=== PATIENT | male | born 1980 | race Caucasian/White ===

== ENCOUNTER 2022-12-31 12:39 | Outpatient (AMB) | payer OTHER, SELFPAY ==
[2022-12-31 12:43] VITALS: BP 136/72; PULSE 114; O2SAT 98; BMI 48.5
--- NOTE | 2022-12-31 12:43 | A.OFFPC_ITS ---
Vital Signs 12/31/22 12:43 Height 6 ft 2 in Weight 378 lb BMI 48.5 BP 136/72 Blood Pressure Location Lt brachial Position Sitting Pulse 114 H Pulse Source Pulse Oximeter Pulse Oximetry (%) 98 Oxygen Delivery Method Room Air Intake Visit Reasons: requesting phy NPV Allergies azithromycin Adverse Reaction (Intermediate, Verified 12/31/22 13:01) stomach pain Medication List - Last Reconciled 12/31/22 by SOFIYA Malik No Known Home Meds Tobacco use date assessed: 12/31/22 Dental Screening Dental Screen Date: 12/31/22 Did you have a dental visit in the last 12 months?: No Did you have a dental problem in the last 6 months where you did not have access to dental care?: No Was dental information given to patient?: No HPI HPI Comments History of Present Illness Details 42-year-old male new patient presents today to establish care.Past medical history significant for ADD, migraine, depression, gout, lumbar back pain and right hip pain. Patient reports snoring nightly and states he will occasionally wake himself from snoring. Patient requesting sleep study, sleep study ordered.Patient reports migraine headaches 1-2 times per month which have improved when he stopped working over nights.Patient reports taking ibuprofen as needed for migraine headaches which is sometimes affective. Patient requesting referral for new therapist and psychiatrist as his insurance has changed, referral entered. Patient also requesting to be started back on his bupropion and would like ADD medication. Patient made aware will refill bupropion a while establishes care with Psychiatry. Patient states his previously on bupropion 350 mg in the morning and 150 mg night, however he has not been on it in years. Will reinitiate bupropion 150 mg b.i.d. and follow-up in 1 month. Patient requesting physical therapy for ongoing right hip pain that occasionally shoots down his right leg, referral entered. Previous pcp Kae Díaz [facility]. [facility] Medical History (Updated 12/31/22 @ 13:28 by SOFIYA Malik) Low back pain Migraines Family History Mother No problems noted. Father Mental health disorder Sister No problems noted. Other Substance use disorder Social History (Updated 12/31/22 @ 13:05 by ROCIO Malik Housing: Apartment Alcohol intake: current Alcohol intake frequency: holidays/special occasions only Patient Tobacco Use Status: Never used Tobacco Tobacco use type: Cigarette e-Cigarette/Vaping Use: Never Used Second Hand Smoke Exposure: No Current occupational status: unemployed Cognitive needs: No Hearing needs: No Vision needs: Yes Questionnaire PHQ-9 Over the last 2 weeks, how often have you been bothered by any of the following problems? 1. Little interest or pleasure in doing things: nearly every day 2. Feeling down, depressed, or hopeless: nearly every day 3. Trouble falling or staying asleep, or sleeping too much: nearly every day 4. Feeling tired or having little energy: nearly every day 5. Poor appetite or overeating: not at all 6. Feeling bad about yourself - or that you are a failure or have let yourself or your family down: not at all 7. Trouble concentrating on things, such as reading the newspaper or watching television: more than half the days 8. Moving or speaking so slowly that other people could have noticed. Or the opposite - being so fidgety or restless that you have been moving around a lot more than usual: not at all 9. Thoughts that you would be better off or of hurting yourself in some way: not at all Total score: 14 Depression Screening Interpretation: Positive 72436 - PHQ-9 Billing: Yes Source: Developed by Drs. Murali Hinkle, Yarely Estrada, Jaswant Sotelo and colleagues, with an educational erika from [employer]. Thrive Questionnaire Date Thrive assessed: 12/31/22 I am a: Patient What is your living situation today?: I have a steady place to live Within the past 12 months, did the food you bought not last and you didn't have the money to get more?: Never true Within the past 12 months, did you worry whether your food would run out before you got money to buy more?: Never true Do you have trouble paying for medicines?: No Do you have trouble getting transportation to medical appointments?: No Do you have trouble paying your heating and electricity bill?: No Do you have trouble taking care of your child, family member or friend?: No Do you have trouble with day-to-day activities such as bathing, preparing meals, shopping, managing finances, etc.?: No Are you currently unemployed and looking for a job?: No Are you interested in more education?: No Currently or been in a relationship where the following occur: no concerns reported AUDIT C Alcohol Use Questionnaire (AUDIT-C) 1. How often do you have a drink containing alcohol?: Monthly or less 2. How many drinks containing alcohol do you have on a typical day when you are drinking?: 1 or 2 3. How often do you have six or more drinks on one occasion?: Never Total Score: 1 LUIS-7 AMB Questionnaire LUIS-7 Date LUIS - 7 assessed: 12/31/22 Feeling nervous, anxious, or on edge: 0 = Not at all Not being able to stop or control worryin = Not at all Worrying too much about different things: 0 = Not at all Trouble relaxin = Not at all Being so restless that it is hard to sit still: 0 = Not at all Becoming easily annoyed or irritable: 0 = Not at all Feeling afraid as if something awful might happen: 0 = Not at all Total LUIS-7 score (0-4 normal; 5-9 mild; 10-14 moderate; 15-21 severe): 0 Source: Developed by Drs. Murali Hinkle, Yarely Estrada, Jaswant Sotelo and colleagues, with an educational erika from [employer]. LUIS-7 Assessment Billing LUIS-7 Assessment Tool: LUIS-7 Assessment 42838 Review of Systems Const Denies chills, Denies fatigue, Denies fever(s) and Denies poor appetite Eyes Denies no additional complaints ENT Reports Normal hearing present Card Denies chest pain, Denies syncope, Denies rapid heart rate and Denies dyspnea Resp Denies cough and Denies dyspnea GI Denies change in stool character, Denies constipation, Denies diarrhea, Denies nausea and Denies vomiting Denies dysuria, Denies urinary frequency and Denies urinary urgency Neuro Reports Normal hearing present, Denies confusion and Denies syncope Psych Denies confusion Endo Denies fatigue Physical exam (Primary Care) Vital Signs: Last Vital Signs Pulse 114 H 12/31/22 12:43 BP 136/72 12/31/22 12:43 Pulse Ox 98 12/31/22 12:43 Oxygen Delivery Method Room Air 12/31/22 12:43 BMI result Body Mass Index 48.5 Tobacco/Smoking Status: Tobacco use Status Tobacco use date assessed 12/31/22 12/31/22 12:50 Patient Tobacco Use Status Never used Tobacco 12/31/22 13:05 Tobacco use type Cigarette 12/31/22 13:05 e-Cigarette/Vaping Use Never Used 12/31/22 13:05 PHQ-9: PHQ-9 Score PHQ-9: Total score 14 12/31/22 13:06 Depression Screening Interpretation: Positive Thrive Assessment: Date of Thrive Assessment Date Thrive assessed 12/31/22 12/31/22 12:50 Currently or been in a relationship where the following occur: no concerns reported Const General: No confusion Orientation/consciousness: No confusion HENMT Head: Yes normocephalic and Yes atraumatic Eyes Conjunctivae: conjunctivae normal Chest Chest palpation & inspection: normal inspection of the chest Resp Effort & Inspection: normal respiratory effort Auscultation: clear to auscultation bilaterally, no crackles, no rhonchi and no wheezes Cardio Rate: regular rate Rhythm: regular rhythm Heart sounds: S1 normal heart sound present and S2 normal heart sound present GI Inspection: Yes normal to inspection Neuro General: No confusion Cranial nerves: Yes Normal hearing present Extrem General: No edema Assessment and Plan Assessment & Plan (1) Snoring: Code(s): R06.83 - Snoring Plan: Home sleep study ordered to further evaluate for CARL. (2) Right hip pain: Code(s): M25.551 - Pain in right hip Plan: Referral entered to therapy. Patient advise can take [id number] ibuprofen as needed for pain. Patient advised to please take with food to prevent GI upset. (3) Routine screening for STI (sexually transmitted infection): Code(s): Z11.3 - Encounter for screening for infections with a predominantly sexual mode of transmission Plan: Patient requesting routine STI screening, orders entered. (4) Depression: Code(s): F32.A - Depression, unspecified Plan: Will start her patient on bupropion 150 b.i.d. Patient denies SI/HI Referral entered to Psychiatry therapist. Follow-up in 1 month. Plan Follow up in 1 month Orders: Orders Comprehensive [place]. Panel Fast 12/31/22 Z13.1 - Encounter for screening for diabetes mellitus Lipid Panel 12/31/22 Z13.220 - Encounter for screening for lipoid disorders TSH reflex Free T4 12/31/22 Z13.29 - Encounter for screening for other suspected endocrine disorder Complete Blood Count Auto Diff 12/31/22 Z13.0 - Encounter for screening for diseases of the blood and blood-forming organs and certain disorders involving the immune mechanism Lyme IgG/IgM w/reflex to WB 12/31/22 R53.83 - Other fatigue RT home sleep study 12/31/22 R06.83 - Snoring PT Evaluation and Treatment 12/31/22 M25.551 - Pain in right hip Hepatitis B,C Profile 12/31/22 Z11.3 - Encounter for screening for infections with a predominantly sexual mode of transmission HIV Ab/Ag 12/31/22 Z11.3 - Encounter for screening for infections with a predominantly sexual mode of transmission Syphilis Screen 12/31/22 Z11.3 - Encounter for screening for infections with a predominantly sexual mode of transmission CT NG by PCR 12/31/22 Z11.8 - Encounter for screening for other infectious and parasitic diseases Referrals Counseling Referral F32.A - Depression, unspecified Psychiatry Referral F32.A - Depression, unspecified, F98.8 - Other specified behavioral and emotional disorders with onset usually occurring in childhood and adolescence Medications: New bupropion HCl 150 mg PO BID 60 tabs 0RF Coding Level of Care Code New Pt Level 4 (38060) Diagnoses Snoring R06.83 Right hip pain M25.551 Routine screening for STI (sexually transmitted infection) Z11.3 Depression F32.A Additional Codes LUIS-7 Assessment Billing - LUIS-7 Assessment Tool: LUIS-7 Assessment 79730 ([id number])
== END 2022-12-31 13:31 | disposition home or self-care (01) ==
PROVIDERS: PCP Nurse Practitioner Family; Visit Provider Nurse Practitioner Family
DX: R06.83 Snoring (principal); M25.551 Pain in right hip; Z11.3 Encounter for screening for infections with a predominantly sexual mode of transmission; F32.A Depression, unspecified
CPT/HCPCS: 99204

== ENCOUNTER 2023-01-24 09:57 | Outpatient (REF) | payer OTHER, SELFPAY ==
[2023-01-24 10:22] LABS: MANUAL DIFF FLAG NO
[2023-01-24 10:40] LABS: Basophils Absolute Auto 0.1 X10*3/uL (0.0-0.2); Eosinophils Percent Auto 0.1 % (0-4); Hematocrit 47.5 % (42.0-52.0); Hemoglobin 16.2 g/dl (14.0-18.0); Imm Gran Abs Auto 0.03 X10*3/uL (0.00-0.03); Imm Gran Pct Auto 0.4 % (0.0-0.4); Lymphocytes Absolute Auto 2.8 X10*3/uL (1.2-4.9); Lymphocytes Percent Auto 35.3 % (20-40); Mean Corpuscular HGB Conc 34.1 g/dl (31.0-36.0); Mean Corpuscular Hemoglobin 28.7 pg (27.0-33.0); Mean Corpuscular Volume 84.2 fL (80.0-98.0); Mean Platelet Volume 10.4 fL (9.4-12.4); Monocytes Absolute Auto 0.5 X10*3/uL (0.1-1.2); Monocytes Percent Auto 6.5 % (2-11); Neutrophils Absolute Auto 4.5 x10*3/uL (2.0-8.3); Neutrophils Percent Auto 56.7 % (45-73); Platelet Count 323 X10*3/uL (160-400); Red Blood Count 5.64 X10*6/uL (4.60-5.80); Red Cell Distribution Width 13.2 % (11.0-16.0)
[2023-01-24 11:14] LABS: Alanine Aminotransferase 26 U/L (0-40); Albumin Level 4.2 g/dL (3.5-5.0); Alkaline Phosphatase 88 U/L (39-117); Anion Gap 12 (12-20); Aspartate Amino Transferase 26 U/L (5-37); Bilirubin Total 0.7 mg/dL (0.0-1.0); Blood Urea Nitrogen 7 mg/dL (9-16); Calcium 9.1 mg/dL (8.4-10.2); Carbon Dioxide 23 mmol/L (22-29); Chloride 108 mmol/L (96-108); Cholesterol 172 mg/dL (<200); Estimated Glomerular Filt Rate > 60; Glucose Fasting 95 mg/dL (60-99); HDL Cholesterol 36 mg/dL (>40); LDL Cholesterol Calculated 103 mg/dL (<100); Potassium 3.6 mmol/L (3.3-5.1); Sodium 139 mmol/L (135-145); Total Protein 7.9 g/dL (6.5-8.0); Triglycerides 165 mg/dL (<150)
[2023-01-24 11:28] LABS: TSH reflex Free T4 2.87 uIU/mL (0.32-4.0)
[2023-01-25 04:47] LABS: Syphilis Screen Nonreactive (Nonreactive)
[2023-01-25 05:15] LABS: HBS Num1 428.72 mIU/mL (0-7.99); HBc Num1 0.12 S/CO (0.00-0.79); HBsAGNum1 0.33 S/CO (0.00-0.99); HIV AB/AG Nonreactive (Nonreactive); HIV Num 1 0.06 S/CO (0.00-0.99); Hepatitis B Core Antibody Nonreactive (Nonreactive); Hepatitis B Surface Antigen Negative (Negative); ~Hepatitis B Surface Antibody REACTIVE (Nonreactive); ~Hepatitis C Antibody Nonreactive (Nonreactive)
[2023-01-26 06:38] LABS: Lyme Abs Screen <0.90 index
== END 2023-01-24 09:58 | disposition home or self-care (01) ==
LOC: HO.LAB 09:57
PROVIDERS: PCP Nurse Practitioner Family; Visit Provider Nurse Practitioner Family
DX: R53.83 Other fatigue (principal); Z13.1 Encounter for screening for diabetes mellitus; Z11.3 Encounter for screening for infections with a predominantly sexual mode of transmission; Z13.220 Encounter for screening for lipoid disorders; Z13.29 Encounter for screening for other suspected endocrine disorder; Z13.0 Encounter for screening for diseases of the blood and blood-forming organs and certain disorders involving the immune mechanism
CPT/HCPCS: 36415; 80053; 80061; 84443; 85025; 86617; 86618; 86704; 86706; 86780; 86803; 87340; 87389

== ENCOUNTER 2023-01-31 14:21 | Outpatient (AMB) | payer OTHER, SELFPAY ==
[2023-01-31 14:24] VITALS: BP 130/84; PULSE 107; O2SAT 98; BMI 48.1
--- NOTE | 2023-01-31 14:24 | A.OFFPC_ITS ---
Vital Signs 01/31/23 14:24 Height 6 ft 2 in Weight 375 lb BMI 48.1 BP 130/84 Blood Pressure Location Lt brachial Position Sitting Pulse 107 H Pulse Source Pulse Oximeter Pulse Oximetry (%) 98 Oxygen Delivery Method Room Air Intake Visit Reasons: PE, Deppression Shotblast Equipment Operator: Not Required per policy Accompanied by: Self / Same As Patient Allergies azithromycin Adverse Reaction (Intermediate, Verified 01/31/23 14:34) stomach pain Medication List - Last Reconciled 01/31/23 by SOFIYA Malik bupropion HCl 150 mg PO BID Tobacco use date assessed: 12/31/22 Dental Screening Dental Screen Date: 01/31/23 Did you have a dental visit in the last 12 months?: No Did you have a dental problem in the last 6 months where you did not have access to dental care?: No Was dental information given to patient?: Patient has dentist HPI HPI Comments History of Present Illness Details 42-year-old male new patient presents to [facility] to establish care.Past medical history significant for ADD, migraine, depression, gout, lumbar back pain and right hip pain. Patient was re-initiated on bupropion 150 mg b.i.d. and referred to Psychiatry to establish care. Patient reports overall improved mood on bupropion. Patient states has upcoming sleep study and will be starting physical therapy soon for his right hip pain. Denies any acute concerns. Denies chest pain, palpitations, shortness of breath syncope. Eye Exam:November 2022. [facility] Medical History Low back pain Migraines Family History Mother No problems noted. Father Mental health disorder Sister No problems noted. Other Substance use disorder Social History Housing: Apartment Alcohol intake: current Alcohol intake frequency: holidays/special occasions only Patient Tobacco Use Status: Never used Tobacco Tobacco use type: Cigarette e-Cigarette/Vaping Use: Never Used Second Hand Smoke Exposure: No Current occupational status: unemployed Cognitive needs: No Hearing needs: No Vision needs: Yes Questionnaire PHQ-9 Over the last 2 weeks, how often have you been bothered by any of the following problems? 1. Little interest or pleasure in doing things: nearly every day 2. Feeling down, depressed, or hopeless: nearly every day 3. Trouble falling or staying asleep, or sleeping too much: nearly every day 4. Feeling tired or having little energy: nearly every day 5. Poor appetite or overeating: not at all 6. Feeling bad about yourself - or that you are a failure or have let yourself or your family down: not at all 7. Trouble concentrating on things, such as reading the newspaper or watching television: more than half the days 8. Moving or speaking so slowly that other people could have noticed. Or the opposite - being so fidgety or restless that you have been moving around a lot more than usual: not at all 9. Thoughts that you would be better off or of hurting yourself in some way: not at all Total score: 14 Depression Screening Interpretation: Positive 77374 - PHQ-9 Billing: Yes Source: Developed by Drs. Murali Hinkle, Jaswant Pennington and colleagues, with an educational erika from [employer]. Thrive Questionnaire Date Thrive assessed: 12/31/22 AUDIT C Alcohol Use Questionnaire (AUDIT-C) 1. How often do you have a drink containing alcohol?: Monthly or less 2. How many drinks containing alcohol do you have on a typical day when you are drinking?: 1 or 2 3. How often do you have six or more drinks on one occasion?: Never Total Score: 1 LUIS-7 AMB Questionnaire LUIS-7 Date LUIS - 7 assessed: 12/31/22 Source: Developed by Drs. Murali Hinkle, Jaswant Pennington and colleagues, with an educational erika from [employer]. Review of Systems Const Denies chills, Denies fatigue, Denies fever(s) and Denies poor appetite Eyes Denies no additional complaints ENT Reports Normal hearing present Card Denies chest pain, Denies syncope, Denies rapid heart rate and Denies dyspnea Resp Denies cough and Denies dyspnea GI Denies change in stool character, Denies constipation, Denies diarrhea, Denies nausea and Denies vomiting Denies dysuria, Denies urinary frequency and Denies urinary urgency Neuro Reports Normal hearing present, Denies confusion and Denies syncope Psych Denies confusion Endo Denies fatigue Physical exam (Primary Care) Vital Signs: Last Vital Signs Pulse 107 H 01/31/23 14:24 BP 130/84 01/31/23 14:24 Pulse Ox 98 01/31/23 14:24 Oxygen Delivery Method Room Air 01/31/23 14:24 BMI result Body Mass Index 48.1 Tobacco/Smoking Status: Tobacco use Status Tobacco use date assessed 12/31/22 01/31/23 14:29 Patient Tobacco Use Status Never used Tobacco 01/31/23 14:29 Tobacco use type Cigarette 01/31/23 14:29 e-Cigarette/Vaping Use Never Used 01/31/23 14:29 PHQ-9: PHQ-9 Score PHQ-9: Total score 14 01/31/23 14:29 Depression Screening Interpretation: Positive Thrive Assessment: Date of Thrive Assessment Date Thrive assessed 12/31/22 01/31/23 14:29 Const General: No confusion Orientation/consciousness: No confusion HENMT Head: Yes normocephalic and Yes atraumatic Ears: external ears normal and TM's normal bilaterally General nose exam: Normal external nose present and Normal nasal mucous membranes and turbinates present Face and sinus: Yes normal facial exam and Yes sinuses nontender Mouth: moist mucous membranes Throat: Yes tonsils normal Eyes Conjunctivae: conjunctivae normal Sclerae: sclerae normal Pupils: Equal, round and reactive pupils present and Pupils normal by confrontation EOM: EOMs intact bilaterally Direct Ophthalmoscopy: normal light reflex Neck Neck: Yes no lymphadenopathy and Yes supple Thyroid: Thyroid normal Chest Chest palpation & inspection: normal inspection of the chest Resp Effort & Inspection: normal respiratory effort Auscultation: clear to auscultation bilaterally, no crackles, no rhonchi and no wheezes Cardio Rate: regular rate Rhythm: regular rhythm Peripheral pulses: radial pulses present and dorsalis pedis present GI Inspection: Yes normal to inspection Palpation (GI): Soft to palpation, nontender and No hepatosplenomegaly present Auscultation: normoactive bowel sounds Back/Spine/Pelvis Other: Patient has multiple red raised nevi to back Skin General skin exam: no rashes or lesions noted Neuro General: No confusion Cranial nerves: Yes Equal, round and reactive pupils present and Yes Normal hearing present Cognition (Neuro): normal cognition Gait exam (Neuro): Normal gait present Motor exam (neuro): 5/5 motor strength present throughout Deep tendon reflexes (DTR's): Right brachioradialis reflex intensity grade: 2+, Left brachioradialis reflex intensity grade: 2+, Right patellar reflex intensity grade: 2+ and Left patellar reflex intensity grade: 2+ Extrem General: No edema Assessment and Plan Assessment & Plan (1) Depression: Code(s): F32.A - Depression, unspecified Plan: Continue on bupropion 150 mg b.i.d., establish care with psychiatry. (2) Apnea: Code(s): R06.81 - Apnea, not elsewhere classified Plan: Patient has an appointment for upcoming sleep study to further evaluate periods of apnea. (3) Physical exam, annual: Code(s): Z00.00 - Encounter for general adult medical examination without abnormal findings Plan: Follow-up in 1 year. (4) Atypical nevi: Code(s): D22.9 - Melanocytic nevi, unspecified Plan: Patient has multiple red raised nevi scattered on back, patient reports seen dermatology in the past and he was told they were not concerning but recommended to have someone check them. Patient denies any change, offered referral to Dermatology however declines at this time. Medications: Refilled bupropion HCl 150 mg PO BID 60 tabs 3RF Coding Level of Care Code Est Pt Prev Care 40-64y(40477) Diagnoses Depression F32.A Apnea R06.81 Physical exam, annual Z00.00 Atypical nevi D22.9
== END 2023-01-31 14:48 | disposition home or self-care (01) ==
PROVIDERS: PCP Nurse Practitioner Family; Visit Provider Nurse Practitioner Family
DX: F32.A Depression, unspecified (principal); R06.81 Apnea, not elsewhere classified; Z00.00 Encounter for general adult medical examination without abnormal findings; D22.9 Melanocytic nevi, unspecified
CPT/HCPCS: 99396

== ENCOUNTER → 2023-03-01 14:04 | Outpatient (REF) | payer OTHER, SELFPAY | LOC: HO.SL 14:04 | PROVIDERS: PCP Nurse Practitioner Family; Visit Provider Nurse Practitioner Family | DX: R06.83 Snoring (principal); R06.81 Apnea, not elsewhere classified | CPT/HCPCS: 95806 ==

== ENCOUNTER → 2023-03-01 14:16 | Outpatient (BNV) | payer OTHER, SELFPAY | PROVIDERS: PCP Nurse Practitioner Family; Visit Provider Internal Medicine | DX: G47.33 Obstructive sleep apnea (adult) (pediatric) (principal) | CPT/HCPCS: 95806 ==

== ENCOUNTER 2023-03-11 10:00 | Outpatient (RCR) | payer OTHER, SELFPAY ==
--- NOTE | 2023-02-07 15:59 | MHC.PT.EP ---
[facility] [place] Office [place] Office [place] Office [address] [phone] F: [phone] F: [phone] F: [phone] F: [phone] Physical Therapy Plan of Care Date of Evaluation: 02/07/23 Date of Surgery: NA Diagnosis: R hip pain Assessment: Neeraj is a 42 year old male who is referred to PT for R hip pain . He reports of having sudden onset of pain in R hip about 4 months back. He denies any trauma or falls. On PT examination he presented with 4/10 pain in R hip with sit to stand, bending, twisting and lifting, mild TTP in B SIJ- R>L, decreased trunk ROM, decreased muscle strength, altered posture and gait. He lives with family members and is independent with ADLS but modifies them and during flare ups he needs help for IADLS. 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 He would benefit from skilled PT to address the aforementioned impairments and improve tolerance to functional activities. Frequency and Duration: The patient will be seen 2/week for 5 weeks Short Term Goals: 1. Pt will have 50% decrease in pain which will enable him to tolerate sitting for an hour without pain in 2 weeks. 2. Pt will be able to move trunk through all plane of motion without pain which will enable him to dress his lower body without pain in 3 weeks. Retirement Goals: 1. Pt will demonstrate an increase in muscle strength by 1 grade which will enable to tolerate bending, twisting and lifting without pain in 5 weeks. 2. Pt will be independent with HEP for symptom management and maintenance following d/c in 5 weeks. Treatment Plan: Modalities to reduce pain, spasms and effusion. Manual therapy to restore motion and function. Therapeutic exercise to improve strength and flexibility. Neuromuscular re-education for posture and balance. Therapeutic activities to return to functional activities of daily living. Electronically signed by: Concha Schaefer PT DPT Please sign and return to therapist. Thank you for your referral.
--- NOTE | 2023-03-11 10:51 | MHC.PT.DC ---
[facility] [place] Office [place] Office [place] Office [address] [phone] F: [phone] F: [phone] F: [phone] F: [phone] Physical Therapy Discharge Report Diagnosis: R hip pain Date of Surgery: NA Date of Evaluation: 02/07/23 Date of Discharge: 03/11/23 Treatments to Date: 8 Cancellations to Date: 0 No Shows to Date: 0 Discharge Status: Achieved Goals Improved Function Independent with HEP Discharge Summary: Neeraj has completed 8 PT visits and has made significant improvements. He is independent with HEP as well. He is therefore being d/c from PT. Neeraj was in agreement with the plan. I reviewed all HEP with him today. Electronically signed by: Concha Schaeefr, PT DPT Please sign and return to therapist. Thank you for your referral.
== END 2023-03-11 10:52 | disposition home or self-care (01) ==
LOC: HO.PT 10:00
PROVIDERS: PCP Nurse Practitioner Family; Visit Provider Nurse Practitioner Family
DX: M25.551 Pain in right hip (principal)
CPT/HCPCS: 97110; 97112; 97161; 97530

== ENCOUNTER 2023-04-27 14:34 | Outpatient (AMB) | payer OTHER, SELFPAY ==
[2023-04-27 14:40] VITALS: BP 130/86; PULSE 105; O2SAT 96; BMI 47.7
--- NOTE | 2023-04-27 14:40 | MHC.OFFVIS ---
Intake Vital Signs 04/27/23 14:40 Height 6 ft 2 in Weight 371 lb 7.662 oz BMI 47.7 BP 130/86 Blood Pressure Location Lt brachial Position Sitting Pulse 105 H Pulse Source Pulse Oximeter Pulse Oximetry (%) 96 Oxygen Delivery Method Room Air Intake Visit Reasons: Obstructive sleep apnea Intake Note: pt is here as a new patient for follow up of sleep study. snoring and tired throughtout the day, sleep issues started a few years ago. Econometrician Required: No Allergies azithromycin Adverse Reaction (Intermediate, Verified 04/27/23 15:09) stomach pain Medication List - Last Reconciled 04/27/23 by Eusebio Rashid MD bupropion HCl 150 mg PO BID Do you need a note to return to daycare/school/sports/work: No HPI Obstructive sleep apnea HPI Details THIS 42 YEARS OLD GENTLEMAN IS BEING SEEN FOR THE 1ST TIME IN RELATION TO HIS SLEEP APNEA. HE HAS BEEN GROSSLY OVERWEIGHT THROUGHOUT HIS ADULT LIFE. HAS PUT ON MORE WEIGHT IN THE LAST FEW YEARS BECAUSE HE IS RELATIVELY SEDENTARY. HE HAS HAD THE MODERATE AMOUNT OF SNORING ALL ALONG. BUT DURING THE PAST FEW YEARS HE HAS MORE SNORING, WITH FREQUENT AWAKENING DURING THE NIGHT, AND DAYTIME FATIGUE/SLEEPINESS. FINALLY HE HAS HAD HOME-BASED SLEEP STUDY, WHICH IS GROSSLY ABNORMAL. HE IS A CASE OF ATTENTION DEFICIT DISORDER, DEPRESSION , AND IS BEING TREATED WITH BUPRPION 150 MG B.I.D. HE LIVES WITH A PARTNER. HE DENIES SMOKING OR DRINKING ALCOHOL. HE HAS CHRONIC RIGHT HIP PAIN, WHICH PREVENTS HIM FROM DOING ANY PHYSICAL EXERCISES. [facility], [facility] Medical History (Updated 04/27/23 @ 15:25 by Eusebio Rashid MD) Morbid obesity Obstructive sleep apnea hypopnea, severe Low back pain Migraines Family History Mother No problems noted. Father Mental health disorder Sister No problems noted. Other Substance use disorder Social History Housing: Apartment Alcohol intake: current Alcohol intake frequency: holidays/special occasions only Patient Tobacco Use Status: Never used Tobacco Tobacco use type: Cigarette e-Cigarette/Vaping Use: Never Used Second Hand Smoke Exposure: No Current occupational status: unemployed Cognitive needs: No Hearing needs: No Vision needs: Yes Review of Systems Const All systems reviewed & are unremarkable except as noted in HPI and below Eyes Reports no additional complaints ENT Reports no additional complaints Card Denies chest pain, Denies syncope, Denies irregular heart rhythm, Denies leg edema and Denies dyspnea Resp Denies cough, Denies dyspnea and Denies wheezing GI Reports no additional complaints Reports no additional complaints Musc Reports back pain Skin/Breast Reports system reviewed and no additional complaints, except as documented Neuro Reports no additional complaints and Denies syncope Psych Reports no additional complaints and Reports depression (CONTROLLED) Endo Reports no additional complaints Wes/Lymph Reports no additional complaints Aller/Immun Denies wheezing Physical Exam Vital Signs: Last Vital Signs Pulse 105 H 04/27/23 14:40 BP 130/86 04/27/23 14:40 Pulse Ox 96 04/27/23 14:40 Oxygen Delivery Method Room Air 04/27/23 14:40 BMI result Body Mass Index 47.7 Const General: comfortable, no acute distress, alert and awake Orientation/consciousness: patient oriented x3 HEENT Head: Yes normal to inspection General nose exam: No nasal polyps present and No nasal discharge present Face and sinus: Yes sinuses nontender Mouth: oropharynx abnormals (OROPHARYNX IS MODERATELY CROWDED, MALLAMPATI CLASS 3) Throat: Yes posterior oropharynx normal Eyes General: appearance normal, both eyes and all related structures Neck Neck: Yes normal visual inspection, Yes no lymphadenopathy, Yes trachea midline, Yes no JVD and Yes other (NECK CIRCUMFERENCE IS 20 IN) Thyroid: Thyroid normal Chest Chest palpation & inspection: normal inspection of the chest, normal palpation of entire chest wall and no tenderness Resp Effort & Inspection: normal respiratory effort Auscultation: clear to auscultation bilaterally, no crackles and no wheezes Cardio Palpation: normal PMI Rate: regular rate Rhythm: regular rhythm Heart sounds: no gallops and no murmurs Peripheral pulses: Peripheral pulses 2+ throughout GI Palpation (GI): Soft to palpation, nontender, No hepatosplenomegaly present and no masses Auscultation: normal bowel sounds Back/Spine/Pelvis Thoracic/Lumbar Spine: thoracic and lumbar spine normal to inspection Skin General skin exam: no rashes or lesions noted Neuro General: patient oriented x3 and no focal motor deficits Cranial nerves: Yes CN's II-XII intact bilaterally Extrem General: Yes normal to inspection, Yes no clubbing, cyanosis or edema and Yes no calf tenderness Psych Appearance: grossly normal and well kempt Speech and movement: Normal speech and movement present Results Reviewed Results Reviewed: HOME-BASED SLEEP STUDY ON 03/01/2023 SHOWS THE FOLLOWING. TOTAL SLEEP TIME AHI 25, SUPINE POSITION AHI 63. LATERAL POSITION AHI 12.4 SNORING FOR 11% OF THE SLEEP TIME. NO NOCTURNAL HYPOXEMIA Assessment & Plan Assessment & Plan (1) Morbid obesity: Comment: THIS GENTLEMAN IS MORBIDLY OBESE. Code(s): E66.01 - Morbid (severe) obesity due to excess calories Plan: WE HAD A GOOD DISCUSSION I TALKED TO HIM ABOUT OBESITY, HOW. IT RELATES TO SLEEP APNEA TALKED ABOUT. WEIGHT REDUCTION PROGRAM HE IS PROBABLY GOING TO DO ON HIS OWN. TALKED ABOUT REDUCING THE CALORIES INTAKE AND ALSO INCREASING HIS DAILY EXERCISE. (2) Obstructive sleep apnea hypopnea, severe: Comment: HE HAS MODERATELY SEVERE DEGREE OF OBSTRUCTIVE SLEEP APNEA. HE IS A GOOD CANDIDATE FOR USING CPAP. HE IS AGREEABLE TO GO ON CPAP AT NIGHT. HE WAS EDUCATED ABOUT THE CPAP THERAPY, SHOWN HIM VARIOUS MASKS. Code(s): G47.33 - Obstructive sleep apnea (adult) (pediatric) Plan: ORDERED CPAP THERAPY WITH AUTO PAP MODE AND PRESSURE SETTING OF 6-20 CM USING FULLFACE MASK. HE WILL COME IN 6-8 WEEKS FOR FOLLOW-UP FOR COMPLIANCE AND BENEFITS. Coding Level of Care Code New Pt Level 3 (67873) Diagnoses Morbid obesity E66.01 Obstructive sleep apnea hypopnea, severe G47.33
== END 2023-04-27 15:07 | disposition home or self-care (01) ==
PROVIDERS: PCP Nurse Practitioner Family; Referring Provider Nurse Practitioner Family; Visit Provider Internal Medicine
DX: G47.33 Obstructive sleep apnea (adult) (pediatric) (principal); E66.01 Morbid (severe) obesity due to excess calories
CPT/HCPCS: 99213

== ENCOUNTER → 2023-04-27 14:34 | Outpatient (BNVA) | payer OTHER, SELFPAY | PROVIDERS: PCP Nurse Practitioner Family; Referring Provider Nurse Practitioner Family; Visit Provider Internal Medicine | DX: G47.33 Obstructive sleep apnea (adult) (pediatric) (principal); E66.01 Morbid (severe) obesity due to excess calories; Z68.42 Body mass index [BMI] 45.0-49.9, adult | CPT/HCPCS: 99212 ==

== ENCOUNTER 2023-07-04 15:37 | Outpatient (AMB) | payer OTHER, SELFPAY ==
[2023-07-04 15:42] VITALS: BP 110/82; PULSE 96; O2SAT 102; BMI 48.1
--- NOTE | 2023-07-04 15:42 | MHC.OFFVIS ---
Intake Vital Signs 07/04/23 15:42 Height 6 ft 2 in Weight 374 lb 12.573 oz BMI 48.1 BP 110/82 Blood Pressure Location Lt brachial Position Sitting Pulse 96 Pulse Source Pulse Oximeter Pulse Oximetry (%) 102 H Oxygen Delivery Method Room Air Intake Visit Reasons: Obstructive sleep apnea Intake Note: pt is here for CARL follow up and the only issue is he takes it off in his sleep. Medical Laboratory Technologist Required: No Allergies azithromycin Adverse Reaction (Intermediate, Verified 07/04/23 16:08) stomach pain Medication List - Last Reconciled 07/04/23 by Eusebio Rashid MD bupropion HCl 150 mg PO BID Do you need a note to return to daycare/school/sports/work: No HPI Obstructive sleep apnea HPI Details THIS 42 YEARS OLD GENTLEMAN WITH MORBID OBESITY AND OBSTRUCTIVE SLEEP APNEA IS HERE FOR FOLLOW-UP AFTER STARTING ON THE CPAP THERAPY. HE IS A CONFIRMED CASE OF SEVERE OBSTRUCTIVE SLEEP APNEA AND WAS STARTED ON THE CPAP THERAPY WITH AUTO PAP MODE. HE HAS BEEN USING EVERY NIGHT, AND CLAIMS THAT HIS SLEEP IS DEFINITELY MUCH BETTER. HE THINKS THAT HE POLES OF THE MASK DURING THE NIGHT . BUT HIS COMPLIANCE REPORT INDICATES THAT HE IS USING IT AT LEAST FOR 5 HOURS EVERY NIGHT. THE MASK. IS COMFORTABLE HE HAS NO ISSUE WITH THE HE WAKES UP LITTLE BIT MORE REFRESHED. THAN BEFORE [facility] Medical History Morbid obesity Obstructive sleep apnea hypopnea, severe Low back pain Migraines Family History Mother No problems noted. Father Mental health disorder Sister No problems noted. Other Substance use disorder Social History Housing: Apartment Alcohol intake: current Alcohol intake frequency: holidays/special occasions only Patient Tobacco Use Status: Never used Tobacco Tobacco use type: Cigarette e-Cigarette/Vaping Use: Never Used Second Hand Smoke Exposure: No Current occupational status: unemployed Cognitive needs: No Hearing needs: No Vision needs: Yes Review of Systems Const All systems reviewed & are unremarkable except as noted in HPI and below Eyes Reports no additional complaints ENT Reports no additional complaints Card Denies chest pain, Denies syncope, Denies irregular heart rhythm, Denies leg edema and Denies dyspnea Resp Denies cough, Denies dyspnea and Denies wheezing GI Reports no additional complaints Reports no additional complaints Musc Reports back pain Skin/Breast Reports system reviewed and no additional complaints, except as documented Neuro Reports no additional complaints and Denies syncope Psych Reports no additional complaints and Reports depression (CONTROLLED) Endo Reports no additional complaints Wes/Lymph Reports no additional complaints Aller/Immun Denies wheezing Physical Exam Vital Signs: Last Vital Signs Pulse 96 07/04/23 15:42 BP 110/82 07/04/23 15:42 Pulse Ox 102 H 07/04/23 15:42 Oxygen Delivery Method Room Air 07/04/23 15:42 BMI result Body Mass Index 48.1 Const General: comfortable, no acute distress, alert and awake Orientation/consciousness: patient oriented x3 HEENT Head: Yes normal to inspection General nose exam: No nasal polyps present and No nasal discharge present Face and sinus: Yes sinuses nontender Mouth: oropharynx abnormals (OROPHARYNX IS MODERATELY CROWDED, MALLAMPATI CLASS 3) Throat: Yes posterior oropharynx normal Eyes General: appearance normal, both eyes and all related structures Neck Neck: Yes normal visual inspection, Yes no lymphadenopathy, Yes trachea midline, Yes no JVD and Yes other (NECK CIRCUMFERENCE IS 20 IN) Thyroid: Thyroid normal Chest Chest palpation & inspection: normal inspection of the chest, normal palpation of entire chest wall and no tenderness Resp Effort & Inspection: normal respiratory effort Auscultation: clear to auscultation bilaterally, no crackles and no wheezes Cardio Palpation: normal PMI Rate: regular rate Rhythm: regular rhythm Heart sounds: no gallops and no murmurs Peripheral pulses: Peripheral pulses 2+ throughout GI Palpation (GI): Soft to palpation, nontender, No hepatosplenomegaly present and no masses Auscultation: normal bowel sounds Back/Spine/Pelvis Thoracic/Lumbar Spine: thoracic and lumbar spine normal to inspection Skin General skin exam: no rashes or lesions noted Neuro General: patient oriented x3 and no focal motor deficits Cranial nerves: Yes CN's II-XII intact bilaterally Extrem General: Yes normal to inspection, Yes no clubbing, cyanosis or edema and Yes no calf tenderness Psych Appearance: grossly normal and well kempt Speech and movement: Normal speech and movement present Results Reviewed Results Reviewed: COMPLIANCE REPORT IS REVIEWED FOR THE LAST 30 NIGHTS HE HAS USED 29/30 NIGHTS, 97%. AVERAGE USE IT PER NIGHT. 5 HOURS 7 MINUTES PRESSURE USED MOSTLY 13-14 CM. THERE IS MODERATE AMOUNT OF AIR LEAK 95TH PERCENTILE 51.8 L AND MAXIMUM 103.6 OF. RESIDUAL AHI 5.3 Assessment & Plan Assessment & Plan (1) Morbid obesity: Comment: THIS GENTLEMAN IS MORBIDLY OBESE. Code(s): E66.01 - Morbid (severe) obesity due to excess calories Plan: TALKED ABOUT HIS WEIGHT ISSUE. ONCE HE IS USING CPAP REGULARLY AND FEELS MORE ENERGETIC HE NEEDS TO START WALKING EVERY DAY. HE DOES NOT WANT TO JOIN THE WEIGHT MANAGEMENT PROGRAM AT THIS TIME BUT WOULD TRY TO CUT DOWN THE CALORIES INTAKE. (2) Obstructive sleep apnea hypopnea, severe: Comment: HE HAS MODERATELY SEVERE DEGREE OF OBSTRUCTIVE SLEEP APNEA. HE HAS BEEN USING CPAP REGULARLY OVER THE PAST 30 NIGHTS , . AND IS BENEFITING THERE IS SOME AIR LEAK , AND RESIDUAL AHI IS STILL. 5.3 Code(s): G47.33 - Obstructive sleep apnea (adult) (pediatric) Plan: INSTRUCTED TO TIGHTEN THE STRAPS. TRY TO KEEP THE MASK ON WHOLE NIGHT. WILL RECHECK IN 2 MONTHS Coding Level of Care Code Est Pt Level 3 (05907) Diagnoses Morbid obesity E66.01 Obstructive sleep apnea hypopnea, severe G47.33
== END 2023-07-04 16:10 | disposition home or self-care (01) ==
PROVIDERS: PCP Nurse Practitioner Family; Visit Provider Internal Medicine
DX: E66.01 Morbid (severe) obesity due to excess calories (principal); G47.33 Obstructive sleep apnea (adult) (pediatric)
CPT/HCPCS: 99213

== ENCOUNTER → 2023-07-04 15:37 | Outpatient (BNVA) | payer OTHER, SELFPAY | PROVIDERS: PCP Nurse Practitioner Family; Visit Provider Internal Medicine | DX: G47.33 Obstructive sleep apnea (adult) (pediatric) (principal); E66.01 Morbid (severe) obesity due to excess calories; Z68.42 Body mass index [BMI] 45.0-49.9, adult | CPT/HCPCS: 99212 ==

== ENCOUNTER 2023-07-20 14:27 | Outpatient (AMB) | payer OTHER, SELFPAY ==
--- NOTE | 2023-07-20 14:30 | A.OFFPC_ITS ---
Vital Signs 07/20/23 14:33 Height 6 ft 2 in Weight 371 lb BMI 47.6 BP 130/90 H Blood Pressure Location Lt brachial Position Sitting Pulse 111 H Pulse Source Pulse Oximeter Pulse Oximetry (%) 98 Oxygen Delivery Method Room Air Intake Visit Reasons: f/u Intake Note: Patient is here to follow up on ADD, Depression, CARL, Obesity and medication review for gout. Dental Equipment Technician Required: No Rn Ortho: Not Required per policy Accompanied by: Self / Same As Patient Allergies azithromycin Adverse Reaction (Intermediate, Verified 07/20/23 15:26) stomach pain Medication List - Last Reconciled 07/20/23 by Angelito Lee MD bupropion HCl 150 mg PO BID colchicine 0.6 mg PO DAILY Tobacco use date assessed: 07/20/23 Dental Screening Dental Screen Date: 07/20/23 Did you have a dental visit in the last 12 months?: No Did you have a dental problem in the last 6 months where you did not have access to dental care?: No Was dental information given to patient?: No HPI f/u HPI Details 42-year-old male presents to the office to discuss his medical conditions. I am assuming his care as his primary care provider has left the practice. Patient gets 1-2 gout attacks per year. The last gout attack was a few months ago. He would like to have a prescription of colchicine for the same. Patient is currently unemployed. He would like to get a neuropsych opinion for ADHD. Using his current therapist he has been unable to find a psychiatrist yet. Able to function and do all activities of daily living. Not exercising or following any particular diet. [facility] Medical History (Updated 07/20/23 @ 15:31 by Angelito Lee MD) Gout Major depressive disorder in remission Morbid obesity Obstructive sleep apnea hypopnea, severe Low back pain Migraines Surgical History No pertinent past surgical history Family History Mother No problems noted. Father Mental health disorder Sister No problems noted. Other Substance use disorder Social History Housing: Apartment Alcohol intake: current Alcohol intake frequency: holidays/special occasions only Patient Tobacco Use Status: Never used Tobacco Tobacco use type: Cigarette e-Cigarette/Vaping Use: Never Used Second Hand Smoke Exposure: No service: No Current occupational status: unemployed Cognitive needs: No Hearing needs: No Vision needs: Yes Questionnaire PHQ-9 Over the last 2 weeks, how often have you been bothered by any of the following problems? 1. Little interest or pleasure in doing things: several days 2. Feeling down, depressed, or hopeless: several days 3. Trouble falling or staying asleep, or sleeping too much: nearly every day 4. Feeling tired or having little energy: several days 5. Poor appetite or overeating: not at all 6. Feeling bad about yourself - or that you are a failure or have let yourself or your family down: several days 7. Trouble concentrating on things, such as reading the newspaper or watching television: nearly every day 8. Moving or speaking so slowly that other people could have noticed. Or the opposite - being so fidgety or restless that you have been moving around a lot more than usual: not at all 9. Thoughts that you would be better off or of hurting yourself in some way: not at all Total score: 10 Depression Screening Interpretation: Positive Depression Screening Follow-up: Existing condition and Community Mental Health Worker F/U (To get a psychiatrist for possible treatment of ADHD) Depression Screening Done: Yes Source: Developed by Drs. Murali Hinkle, Yarely Estrada, Jaswant Sotelo and colleagues, with an educational erika from [employer]. Thrive Questionnaire Date Thrive assessed: 07/20/23 I am a: Patient What is your living situation today?: I have a steady place to live Within the past 12 months, did the food you bought not last and you didn't have the money to get more?: Never true Within the past 12 months, did you worry whether your food would run out before you got money to buy more?: Never true Do you have trouble paying for medicines?: No Do you have trouble getting transportation to medical appointments?: No Do you have trouble paying your heating and electricity bill?: No Do you have trouble taking care of your child, family member or friend?: No Do you have trouble with day-to-day activities such as bathing, preparing meals, shopping, managing finances, etc.?: No Are you currently unemployed and looking for a job?: No Are you interested in more education?: No Currently or been in a relationship where the following occur: no concerns reported THRIVE Score: 0 AUDIT C Alcohol Use Questionnaire (AUDIT-C) 1. How often do you have a drink containing alcohol?: Monthly or less 2. How many drinks containing alcohol do you have on a typical day when you are drinking?: 1 or 2 Total Score: 1 LUIS-7 AMB Questionnaire LUIS-7 Date LUIS - 7 assessed: 07/20/23 Feeling nervous, anxious, or on edge: 0 = Not at all Not being able to stop or control worryin = Not at all Worrying too much about different things: 0 = Not at all Trouble relaxin = Not at all Being so restless that it is hard to sit still: 0 = Not at all Becoming easily annoyed or irritable: 0 = Not at all Feeling afraid as if something awful might happen: 0 = Not at all Total LUIS-7 score (0-4 normal; 5-9 mild; 10-14 moderate; 15-21 severe): 0 Source: Developed by Drs. Murali Hinkle, Yarely Estrada, Jaswant Sotelo and colleagues, with an educational erika from [employer]. Physical exam (Primary Care) Vital Signs: Last Vital Signs Pulse 111 H 07/20/23 14:33 BP 130/90 H 07/20/23 14:33 Pulse Ox 98 07/20/23 14:33 Oxygen Delivery Method Room Air 07/20/23 14:33 Care Plan Goal for BP management: Blood pressure is stable. Currently on no medications. BMI result Body Mass Index 47.6 BMI Assessment/Plan discussion: High (1 lb per week weight loss suggested.) BMI High, discussed plan: lifestyle, weight reduction, dietary and physical activity Tobacco/Smoking Status: Tobacco use Status Tobacco use date assessed 07/20/23 07/20/23 14:38 Patient Tobacco Use Status Never used Tobacco 07/20/23 14:38 Tobacco use type Cigarette 07/20/23 14:38 e-Cigarette/Vaping Use Never Used 07/20/23 14:38 PHQ-9: PHQ-9 Score PHQ-9: Total score 10 07/20/23 14:38 Depression Screening Interpretation: Positive Depression Screening Follow-up: Existing condition and Community Mental Health Worker F/U (To get a psychiatrist for possible treatment of ADHD) Thrive Assessment: Date of Thrive Assessment Date Thrive assessed 07/20/23 07/20/23 14:38 Currently or been in a relationship where the following occur: no concerns reported Const General: cooperative and healthy appearing Nutritional Appearance: well nourished Orientation/consciousness: patient oriented x3 Limitations: no limitations HENMT Head: Yes normal to inspection Eyes General: appearance normal, both eyes and all related structures Neck Neck: Yes normal visual inspection Chest Chest palpation & inspection: normal palpation of entire chest wall Resp Effort & Inspection: normal respiratory effort Neuro General: patient oriented x3 Assessment and Plan Assessment & Plan (1) Obstructive sleep apnea hypopnea, severe: Comment: HE HAS MODERATELY SEVERE DEGREE OF OBSTRUCTIVE SLEEP APNEA. HE HAS BEEN USING CPAP REGULARLY OVER THE PAST 30 NIGHTS , . AND IS BENEFITING THERE IS SOME AIR LEAK , AND RESIDUAL AHI IS STILL. 5.3 Code(s): G47.33 - Obstructive sleep apnea (adult) (pediatric) Plan: Condition is stable. Advised patient to lose weight. (2) Morbid obesity: Comment: THIS GENTLEMAN IS MORBIDLY OBESE. Code(s): E66.01 - Morbid (severe) obesity due to excess calories (3) Gout: Code(s): M10.9 - Gout, unspecified Plan: Colchicine prescription given. (4) Major depressive disorder in remission: Code(s): F32.5 - Major depressive disorder, single episode, in full remission Plan: Prescription written. For ADHD he would have to see a psychiatrist and a referral is being made. Orders: Orders Thyroid Stimulating Hormone Today E66.01 - Morbid (severe) obesity due to excess calories, G47.33 - Obstructive sleep apnea (adult) (pediatric), M10.9 - Gout, unspecified UA and rflx microscopic Today E66.01 - Morbid (severe) obesity due to excess calories, G47.33 - Obstructive sleep apnea (adult) (pediatric), M10.9 - Gout, unspecified Basic Metabolic Panel Today E66.01 - Morbid (severe) obesity due to excess calories, G47.33 - Obstructive sleep apnea (adult) (pediatric), M10.9 - Gout, unspecified Complete Blood Count no Diff Today E66.01 - Morbid (severe) obesity due to excess calories, G47.33 - Obstructive sleep apnea (adult) (pediatric), M10.9 - Gout, unspecified Lipid Panel Today E66.01 - Morbid (severe) obesity due to excess calories, G47.33 - Obstructive sleep apnea (adult) (pediatric), M10.9 - Gout, unspecified Liver Panel Today E66.01 - Morbid (severe) obesity due to excess calories, G47.33 - Obstructive sleep apnea (adult) (pediatric), M10.9 - Gout, unspecified Medications: New colchicine 0.6 mg PO DAILY 14 tabs 0RF Gout Refilled bupropion HCl 150 mg PO BID 180 tabs 1RF Coding Level of Care Code Est Pt Level 4 (92031) Diagnoses Obstructive sleep apnea hypopnea, severe G47.33 Morbid obesity E66.01 Gout M10.9 Major depressive disorder in remission F32.5
[2023-07-20 14:33] VITALS: BP 130/90; PULSE 111; O2SAT 98; BMI 47.6
== END 2023-07-20 15:19 | disposition home or self-care (01) ==
PROVIDERS: PCP Physician Assistant; Visit Provider Internal Medicine
DX: G47.33 Obstructive sleep apnea (adult) (pediatric) (principal); M10.9 Gout, unspecified; F32.5 Major depressive disorder, single episode, in full remission
CPT/HCPCS: 99214

== ENCOUNTER 2023-09-06 15:25 | Outpatient (AMB) | payer OTHER, SELFPAY ==
--- NOTE | 2023-09-06 15:27 | MHC.OFFVIS ---
Vital Signs 09/06/23 15:28 Height 6 ft 2 in Weight 373 lb 10.936 oz BMI 48.0 BP 110/78 Blood Pressure Location Lt brachial Position Sitting Pulse 104 H Pulse Source Pulse Oximeter Pulse Oximetry (%) 96 Oxygen Delivery Method Room Air Intake Visit Reasons: Obstructive sleep apnea Intake Note: pt is here for follow up of CARL, and still fighting taking off his mask at night. Software Requirements Engineer Required: No Allergies azithromycin Adverse Reaction (Intermediate, Verified 09/06/23 15:41) stomach pain Medication List - Last Reconciled 09/06/23 by Eusebio Rashid MD bupropion HCl SR 150 mg PO BID colchicine 0.6 mg PO DAILY Do you need a note to return to daycare/school/sports/work: No HPI HPI Obstructive sleep apnea: Details: 42 YEARS OLD GENTLEMAN WITH MORBID OBESITY, AND OBSTRUCTIVE SLEEP APNEA. IS HERE FOR FOLLOW-UP AFTER 2 MONTHS. HE IS USING CPAP ALMOST EVERY NIGHT. MISSED 4 NIGHTS IN THE WHOLE MONTH. DURING THE NIGHT HE SOMETIMES PULLS HIS MASK TO THE SIDE. HE CLAIMS THAT HE SLEEPS FAIRLY WELL. FAR WEIGHT IS CONCERNED THERE HAS BEEN NO CHANGE. OVERALL HIS SLEEP QUALITY HAS IMPROVED. HE DENIES DAYTIME SLEEPINESS. ON LICENSE OF [facility] Medical History Gout Major depressive disorder in remission Morbid obesity Obstructive sleep apnea hypopnea, severe Low back pain Migraines Surgical History No pertinent past surgical history Family History Mother No problems noted. Father Mental health disorder Sister No problems noted. Other Substance use disorder Social History Housing: Apartment Alcohol intake: current Alcohol intake frequency: holidays/special occasions only Patient Tobacco Use Status: Never used Tobacco Tobacco use type: Cigarette e-Cigarette/Vaping Use: Never Used Second Hand Smoke Exposure: No service: No Current occupational status: unemployed Cognitive needs: No Hearing needs: No Vision needs: Yes Review of Systems Const All systems reviewed & are unremarkable except as noted in HPI and below Eyes Reports no additional complaints ENT Reports no additional complaints Card Denies chest pain, Denies syncope, Denies irregular heart rhythm, Denies leg edema and Denies dyspnea Resp Denies cough, Denies dyspnea and Denies wheezing GI Reports no additional complaints Reports no additional complaints Musc Reports back pain Skin/Breast Reports system reviewed and no additional complaints, except as documented Neuro Reports no additional complaints and Denies syncope Psych Reports no additional complaints and Reports depression (CONTROLLED) Endo Reports no additional complaints Wes/Lymph Reports no additional complaints Aller/Immun Denies wheezing Physical Exam Vital Signs: Last Vital Signs Pulse 104 H 09/06/23 15:28 BP 110/78 09/06/23 15:28 Pulse Ox 96 09/06/23 15:28 Oxygen Delivery Method Room Air 09/06/23 15:28 BMI result Body Mass Index 48.0 Const General: comfortable, no acute distress, alert and awake Orientation/consciousness: patient oriented x3 HEENT Head: Yes normal to inspection General nose exam: No nasal polyps present and No nasal discharge present Face and sinus: Yes sinuses nontender Mouth: oropharynx abnormals (OROPHARYNX IS MODERATELY CROWDED, MALLAMPATI CLASS 3) Throat: Yes posterior oropharynx normal Eyes General: appearance normal, both eyes and all related structures Neck Neck: Yes normal visual inspection, Yes no lymphadenopathy, Yes trachea midline, Yes no JVD and Yes other (NECK CIRCUMFERENCE IS 20 IN) Thyroid: Thyroid normal Chest Chest palpation & inspection: normal inspection of the chest, normal palpation of entire chest wall and no tenderness Resp Effort & Inspection: normal respiratory effort Auscultation: clear to auscultation bilaterally, no crackles and no wheezes Cardio Palpation: normal PMI Rate: regular rate Rhythm: regular rhythm Heart sounds: no gallops and no murmurs Peripheral pulses: Peripheral pulses 2+ throughout GI Palpation (GI): Soft to palpation, nontender, No hepatosplenomegaly present and no masses Auscultation: normal bowel sounds Back/Spine/Pelvis Thoracic/Lumbar Spine: thoracic and lumbar spine normal to inspection Skin General skin exam: no rashes or lesions noted Neuro General: patient oriented x3 and no focal motor deficits Cranial nerves: Yes CN's II-XII intact bilaterally Extrem General: Yes normal to inspection, Yes no clubbing, cyanosis or edema and Yes no calf tenderness Psych Appearance: grossly normal and well kempt Speech and movement: Normal speech and movement present Results Reviewed Results Reviewed: COMPLIANCE REPORT REVIEWED. IN THE LAST 30 NIGHTS HE HAS USED FOR 26 NIGHTS, 87% OF THE TIME. AVERAGE USE IT PER NIGHT 4 HOURS 29 MINUTES PRESSURE USED MOSTLY 13-15 CM. THERE IS SOME AIR LEAK MAXIMUM. 84.6 L RESIDUAL AHI 4.2 Assessment & Plan Assessment & Plan (1) Morbid obesity: Comment: THIS GENTLEMAN IS MORBIDLY OBESE. THERE HAS BEEN NO DECREASE IN HIS WEIGHT. Code(s): E66.01 - Morbid (severe) obesity due to excess calories Category: Medical Plan: AGAIN DISCUSSED WITH HIM ABOUT IMPORTANCE OF LOSING WEIGHT. HE NEEDS TO JOIN A. WEIGHT MANAGEMENT PROGRAM HE NEEDS TO WALK DAILY. CUT DOWN INTAKE OF CARBOHYDRATES AND INCREASE INTAKE OF . SOLIDS AND VEGETABLES (2) Obstructive sleep apnea hypopnea, severe: Comment: HE HAS MODERATELY SEVERE DEGREE OF OBSTRUCTIVE SLEEP APNEA. HE HAS BEEN USING CPAP REGULARLY AND DO USED FOR 87% OF THE NIGHTS. THE DURATION OF HIS USAGE IS IS STILL ON THE LOW SIDE . HE DEFINITELY FEELS BETTER. Code(s): G47.33 - Obstructive sleep apnea (adult) (pediatric) Category: Medical Plan: ADVISED TO MAKE SURE TO PUT THE CPAP MASK ON EVERY NIGHT. KEEP THE STRAPS SOMEWHAT TIGHTER. TRY NOT TO PULL OFF THE MASK AT NIGHTTIME. USE IT AT LEAST FOR 5 HOURS EVERY NIGHT. Coding Level of Care Code Est Pt Level 3 (79517) Diagnoses Morbid obesity E66.01 Obstructive sleep apnea hypopnea, severe G47.33
[2023-09-06 15:28] VITALS: BP 110/78; PULSE 104; O2SAT 96; BMI 48.0
== END 2023-09-06 15:41 | disposition home or self-care (01) ==
PROVIDERS: PCP Internal Medicine; Visit Provider Internal Medicine
DX: E66.01 Morbid (severe) obesity due to excess calories (principal); G47.33 Obstructive sleep apnea (adult) (pediatric)
CPT/HCPCS: 99213

== ENCOUNTER → 2023-09-06 15:25 | Outpatient (BNVA) | payer OTHER, SELFPAY | PROVIDERS: PCP Nurse Practitioner Family; Visit Provider Internal Medicine | DX: G47.33 Obstructive sleep apnea (adult) (pediatric) (principal); E66.01 Morbid (severe) obesity due to excess calories; Z68.42 Body mass index [BMI] 45.0-49.9, adult | CPT/HCPCS: 99212 ==

== ENCOUNTER 2023-10-13 10:40 | Outpatient (AMB) | payer OTHER, SELFPAY ==
--- NOTE | 2023-10-13 10:42 | A.OFFPC_ITS ---
Vital Signs 10/13/23 10:46 Height 6 ft 2 in Weight 371 lb 8 oz BMI 47.7 BP 120/72 Blood Pressure Location Lt brachial Position Sitting Pulse 99 Pulse Source Pulse Oximeter Pulse Oximetry (%) 98 Oxygen Delivery Method Room Air Intake Visit Reasons: LUZ from N.F Intake Note: Patient is here today for LUZ from N.F. Fur Glazer Required: No Lab Systems Analyst: Not Required per policy Accompanied by: Self / Same As Patient Allergies azithromycin Adverse Reaction (Intermediate, Verified 10/14/23 12:41) stomach pain Medication List - Last Reconciled 10/14/23 by Angelito Lee MD bupropion HCl XL 300 mg PO DAILY bupropion HCl XL 150 mg PO QAM colchicine 0.6 mg PO DAILY Tobacco use date assessed: 10/13/23 Dental Screening Dental Screen Date: 07/20/23 HPI LUZ from N.F HPI Details 42-year-old male presents to the office to discuss his chronic medical conditions. Since last office visit patient has been seen at [facility] for his depression and ADHD. The bupropion dosage has been increased to 450 mg a day. Patient is reporting erectile dysfunction at times. He is unable to maintain a satisfactory erection. Normal ejaculation. Blood work ordered in the last office visit was not done. [facility] Medical History (Updated 10/14/23 @ 13:05 by Angelito Lee MD) Erectile dysfunction Gout Major depressive disorder in remission Morbid obesity Obstructive sleep apnea hypopnea, severe Low back pain Migraines Surgical History No pertinent past surgical history Family History Mother No problems noted. Father Mental health disorder Sister No problems noted. Other Substance use disorder Social History Housing: Apartment Alcohol intake: current Alcohol intake frequency: holidays/special occasions only Patient Tobacco Use Status: Never used Tobacco Tobacco use type: Cigarette e-Cigarette/Vaping Use: Never Used Second Hand Smoke Exposure: No service: No Current occupational status: unemployed Cognitive needs: No Hearing needs: No Vision needs: Yes Questionnaire Thrive Questionnaire Date Thrive assessed: 07/20/23 LUIS-7 AMB Questionnaire LUIS-7 Date LUIS - 7 assessed: 07/20/23 Source: Developed by DrsKatelyn Hinkle, Yarely Estrada, Jaswant Sotelo and colleagues, with an educational erika from [employer]. Physical exam (Primary Care) Vital Signs: Last Vital Signs Pulse 99 10/13/23 10:46 BP 120/72 10/13/23 10:46 Pulse Ox 98 10/13/23 10:46 Oxygen Delivery Method Room Air 10/13/23 10:46 BMI result Body Mass Index 47.7 BMI Assessment/Plan discussion: High (1 lb per week weight loss suggested.) BMI High, discussed plan: lifestyle, weight reduction and dietary Tobacco/Smoking Status: Tobacco use Status Tobacco use date assessed 10/13/23 10/13/23 10:51 Patient Tobacco Use Status Never used Tobacco 10/13/23 10:51 Tobacco use type Cigarette 10/13/23 10:51 e-Cigarette/Vaping Use Never Used 10/13/23 10:51 Thrive Assessment: Date of Thrive Assessment Date Thrive assessed 07/20/23 10/13/23 10:51 Const General: cooperative and healthy appearing Nutritional Appearance: well nourished Orientation/consciousness: patient oriented x3 Limitations: no limitations HENMT Head: Yes normal to inspection Eyes General: appearance normal, both eyes and all related structures Neck Neck: Yes normal visual inspection Chest Chest palpation & inspection: normal palpation of entire chest wall Resp Effort & Inspection: normal respiratory effort Neuro General: patient oriented x3 Assessment and Plan Assessment & Plan (1) Major depressive disorder in remission: Code(s): F32.5 - Major depressive disorder, single episode, in full remission Plan: Continue Wellbutrin at 450 mg a day. Patient is being followed by [facility]. Continue treatment and counseling at the same facility. (2) Obstructive sleep apnea hypopnea, severe: Comment: HE HAS MODERATELY SEVERE DEGREE OF OBSTRUCTIVE SLEEP APNEA. HE HAS BEEN USING CPAP REGULARLY AND DO USED FOR 87% OF THE NIGHTS. THE DURATION OF HIS USAGE IS IS STILL ON THE LOW SIDE . Code(s): G47.33 - Obstructive sleep apnea (adult) (pediatric) Plan: Above note from back up worker reviewed. (3) Morbid obesity: Code(s): E66.01 - Morbid (severe) obesity due to excess calories Plan: Counseling on the importance of diet and exercise done (4) ADD (attention deficit disorder): Code(s): F98.8 - Other specified behavioral and emotional disorders with onset usually occurring in childhood and adolescence Plan: This condition is also being treated at [facility]. (5) Erectile dysfunction: Code(s): N52.9 - Male erectile dysfunction, unspecified Plan: Condition could be related to medications. Patient was advised to consult the psychiatrist. Coding Level of Care Code Est Pt Level 4 (98836) Complex EM visit Add On G2211 Diagnoses Major depressive disorder in remission F32.5 Obstructive sleep apnea hypopnea, severe G47.33 Morbid obesity E66.01 ADD (attention deficit disorder) F98.8 Erectile dysfunction N52.9
[2023-10-13 10:46] VITALS: BP 120/72; PULSE 99; O2SAT 98; BMI 47.7
== END 2023-10-13 11:18 | disposition home or self-care (01) ==
PROVIDERS: PCP Physician Assistant; Visit Provider Internal Medicine
DX: F32.5 Major depressive disorder, single episode, in full remission (principal); G47.33 Obstructive sleep apnea (adult) (pediatric); F98.8 Other specified behavioral and emotional disorders with onset usually occurring in childhood and adolescence; N52.9 Male erectile dysfunction, unspecified
CPT/HCPCS: 99214; G2211

== ENCOUNTER 2023-10-14 07:43 | Outpatient (REF) | payer OTHER, SELFPAY ==
[2023-10-14 09:05] LABS: Hematocrit 46.6 % (42.0-52.0); Hemoglobin 15.8 g/dl (14.0-18.0); Mean Corpuscular HGB Conc 33.9 g/dl (31.0-36.0); Mean Corpuscular Hemoglobin 28.6 pg (27.0-33.0); Mean Corpuscular Volume 84.4 fL (80.0-98.0); Mean Platelet Volume 10.5 fL (9.4-12.4); Platelet Count 332 X10*3/uL (160-400); Red Blood Count 5.52 X10*6/uL (4.60-5.80); Red Cell Distribution Width 13.3 % (11.0-16.0); White Blood Count 9.7 X10*3/uL (4.8-10.8)
[2023-10-14 09:43] LABS: Alanine Aminotransferase 26 U/L (0-40); Albumin Level 4.3 g/dL (3.5-5.0); Alkaline Phosphatase 91 U/L (39-117); Anion Gap 16 (12-20); Aspartate Amino Transferase 26 U/L (5-37); Bilirubin Direct 0.2 mg/dL (0.0-0.5); Bilirubin Total 0.6 mg/dL (0.0-1.0); Blood Urea Nitrogen 8 mg/dL (9-16); Carbon Dioxide 22 mmol/L (22-29); Chloride 107 mmol/L (96-108); Cholesterol 154 mg/dL (<200); Estimated Glomerular Filt Rate > 60; Glucose Random 87 mg/dL (60-115); HDL Cholesterol 36 mg/dL (>40); LDL Cholesterol Calculated 95 mg/dL (<100); Potassium 3.6 mmol/L (3.3-5.1); Sodium 141 mmol/L (135-145); Total Protein 7.9 g/dL (6.5-8.0); Triglycerides 119 mg/dL (<150)
[2023-10-14 09:52] LABS: Appearance Urine Clear; Color Urine Yellow; Glucose Urine UA Negative (Negative); Leukocyte Esterase Urine Negative (Negative); Nitrite Urine Negative (Negative); PH 5.5 (5.0-9.0); Urine Blood Negative (Negative); Urine Ketones Negative (Negative); Urine Protein Negative (Neg-Trace)
[2023-10-14 10:04] LABS: Thyroid Stimulating Hormone 2.69 uIU/mL (0.32-4.0)
== END 2023-10-14 07:44 | disposition home or self-care (01) ==
LOC: HO.LAB 07:43
PROVIDERS: PCP Internal Medicine; Visit Provider Internal Medicine
DX: M10.9 Gout, unspecified (principal); E66.01 Morbid (severe) obesity due to excess calories; G47.33 Obstructive sleep apnea (adult) (pediatric)
CPT/HCPCS: 36415; 80048; 80061; 80076; 81003; 84443; 85027

== ENCOUNTER 2023-12-19 14:35 | Outpatient (AMB) | payer OTHER, SELFPAY ==
[2023-12-19 14:37] VITALS: BP 136/90; PULSE 108; O2SAT 98; BMI 46.1
--- NOTE | 2023-12-19 14:37 | A.OFFPC_ITS ---
Vital Signs 12/19/23 14:37 Height 6 ft 2 in Weight 359 lb BMI 46.1 BP 136/90 H Blood Pressure Location Lt brachial Position Sitting Pulse 108 H Pulse Source Pulse Oximeter Pulse Oximetry (%) 98 Oxygen Delivery Method Room Air Intake Visit Reasons: Pain on Left armpit Intake Note: pt c/o left under arm pain and swelling [id number] Oracle Erp Developer Required: No Allergies azithromycin Adverse Reaction (Intermediate, Verified 12/19/23 14:41) stomach pain Tobacco use date assessed: 10/13/23 Dental Screening Dental Screen Date: 07/20/23 HPI Pain on Left armpit HPI Details 43-year-old male presents to the office for a sick visit. Patient made this appointment 3 weeks ago. At that time he was having pain in the left arm and axilla. Does not recall any fall or injury prior to the onset of symptoms. Patient also was feeling a lump in the same area. Symptoms have subsequently subsided. However on some occasions, he does have a deep pain in the left axillary area. In addition, patient is now complaining of lower back pain. It has flared up from the past. He is requesting physical therapy for the same. [facility] Medical History (Updated 10/14/23 @ 13:05 by Angelito Lee MD) Erectile dysfunction Gout Major depressive disorder in remission Morbid obesity Obstructive sleep apnea hypopnea, severe Low back pain Migraines Surgical History No pertinent past surgical history Family History Mother No problems noted. Father Mental health disorder Sister No problems noted. Other Substance use disorder Social History Housing: Apartment Alcohol intake: current Alcohol intake frequency: holidays/special occasions only Patient Tobacco Use Status: Never used Tobacco Tobacco use type: Cigarette e-Cigarette/Vaping Use: Never Used Second Hand Smoke Exposure: No service: No Current occupational status: unemployed Cognitive needs: No Hearing needs: No Vision needs: Yes Questionnaire Thrive Questionnaire Date Thrive assessed: 07/20/23 AUDIT C Alcohol Use Questionnaire (AUDIT-C) 1. How often do you have a drink containing alcohol?: Monthly or less 2. How many drinks containing alcohol do you have on a typical day when you are drinking?: 1 or 2 Total Score: 1 LUIS-7 AMB Questionnaire LUIS-7 Date LUIS - 7 assessed: 07/20/23 Source: Developed by Drs. Murali Hinkle, Yarely Estrada, Jaswant Sotelo and colleagues, with an educational erika from [employer] Physical exam (Primary Care) Vital Signs: Last Vital Signs Pulse 108 H 12/19/23 14:37 BP 136/90 H 12/19/23 14:37 Pulse Ox 98 12/19/23 14:37 Oxygen Delivery Method Room Air 12/19/23 14:37 Care Plan Goal for BP management: Blood pressure is in range. Continue medicati ons at same dosage BMI result Body Mass Index 46.1 Tobacco/Smoking Status: Tobacco use Status Tobacco use date assessed 10/13/23 12/19/23 14:38 Patient Tobacco Use Status Never used Tobacco 12/19/23 14:38 Tobacco use type Cigarette 12/19/23 14:38 e-Cigarette/Vaping Use Never Used 12/19/23 14:38 Thrive Assessment: Date of Thrive Assessment Date Thrive assessed 07/20/23 12/19/23 14:38 Const General: cooperative and healthy appearing Nutritional Appearance: well nourished Orientation/consciousness: patient oriented x3 Limitations: no limitations HENMT Head: Yes normal to inspection Eyes General: appearance normal, both eyes and all related structures Neck Neck: Yes normal visual inspection Chest Chest palpation & inspection: normal palpation of entire chest wall Resp Effort & Inspection: normal respiratory effort General: Yes no CVA tenderness Back/Spine/Pelvis Back: no CVA tenderness Thoracic/Lumbar Spine: No thoracic spinal tenderness and No lumbar spinal tenderness Skin Other: Left arm: No visible swelling. No lymph nodes palpable. Full range of motion of the arm. Neuro General: patient oriented x3 Assessment and Plan Assessment & Plan (1) Lower thoracic back pain: Code(s): M54.6 - Pain in thoracic spine Plan: Physical therapy ordered. X-ray of the lumbar spine ordered. Will call with the results. Patient was advised to do stretching exercises. (2) Left arm pain: Code(s): M79.602 - Pain in left arm Plan: Reassurance. No lump palpable. A chest x-ray has been ordered. Orders: Orders PT Evaluation and Treatment Today M54.6 - Pain in thoracic spine XR chest 2V Today R05.9 - Cough, unspecified XR lumbar spine 2-3V Today G89.29 - Other chronic pain, M54.50 - Low back pain, unspecified Coding Level of Care Code Est Pt Level 4 (72403) Complex EM visit Add On G2211 Diagnoses Lower thoracic back pain M54.6 Left arm pain M79.602
== END 2023-12-19 14:58 | disposition home or self-care (01) ==
PROVIDERS: PCP Internal Medicine; Visit Provider Internal Medicine
DX: M54.6 Pain in thoracic spine (principal); M79.602 Pain in left arm
CPT/HCPCS: 99214; G2211

== ENCOUNTER 2024-01-02 15:21 | Outpatient (REF) | payer OTHER, SELFPAY ==
--- NOTE | ~2024-01-02 | XR_ITS ---
EXAMINATION: XR LUMBOSACRAL SPINE CLINICAL INFORMATION: Back pain. COMPARISON: None available. TECHNIQUE: Three views of the lumbosacral spine. FINDINGS: The lumbar lordosis is maintained. No acute fracture or subluxation. No loss of vertebral body or intervertebral disc height. Prominent, near bridging endplate osteophytes throughout the lower thoracic and lumbar spine. Bilateral facet arthropathy at L4-L5 and L5-S1. No concerning lytic or blastic osseous lesion. XR/XR lumbar spine 2-3V IMPRESSION: Moderate multilevel degenerative disc disease throughout the lower thoracic and lumbar spine. Bilateral facet arthropathy at L4-L5 and L5-S1. Electronically signed by: Gokul Frias MD 01/23/2024 08:56 PM EDT
--- NOTE | ~2024-01-02 | XR_ITS ---
EXAMINATION: XR CHEST CLINICAL INFORMATION: Cough. COMPARISON: None available. TECHNIQUE: 2 views of the chest were obtained. FINDINGS: The lungs are clear. The cardiomediastinal silhouette is normal in size. There is no pleural effusion or pneumothorax. No acute osseous abnormality. XR/XR chest 2V IMPRESSION: No acute cardiopulmonary findings. Electronically signed by: Gokul Frias MD 01/23/2024 07:40 PM EDT
== END 2024-01-02 15:22 | disposition home or self-care (01) ==
LOC: HO.XRAY 15:21
PROVIDERS: PCP Internal Medicine; Visit Provider Internal Medicine
DX: R05.9 Cough, unspecified (principal); M54.50 Low back pain, unspecified; G89.29 Other chronic pain
CPT/HCPCS: 71046; 72100

== ENCOUNTER 2024-02-02 15:38 | Outpatient (AMB) | payer OTHER, SELFPAY ==
--- NOTE | 2024-02-02 15:39 | A.OFFPC_ITS ---
Vital Signs 02/02/24 15:42 Height 6 ft 2 in Weight 358 lb 2 oz BMI 46.0 BP 120/62 Blood Pressure Location Lt brachial Position Sitting Pulse 106 H Pulse Source Pulse Oximeter Pulse Oximetry (%) 98 Oxygen Delivery Method Room Air Intake Visit Reasons: PE Intake Note: Patient is here today for a physical and xray results. 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 [facility] Medical History Erectile dysfunction Gout Major depressive disorder in remission Morbid obesity Obstructive sleep apnea hypopnea, severe Low back pain Migraines Surgical History No pertinent past surgical history Family History Mother No problems noted. Father Mental health disorder Sister No problems noted. Other Substance use disorder Social History Housing: Apartment Alcohol intake: current Alcohol intake frequency: holidays/special occasions only Patient Tobacco Use Status: Never used Tobacco Tobacco use type: Cigarette e-Cigarette/Vaping Use: Never Used Second Hand Smoke Exposure: No service: No Current occupational status: unemployed Cognitive needs: No Hearing needs: No Vision needs: Yes Questionnaire PHQ-9 Over the last 2 weeks, how often have you been bothered by any of the following problems? 1. Little interest or pleasure in doing things: not at all 2. Feeling down, depressed, or hopeless: not at all 3. Trouble falling or staying asleep, or sleeping too much: more than half the days 4. Feeling tired or having little energy: more than half the days 5. Poor appetite or overeating: not at all 6. Feeling bad about yourself - or that you are a failure or have let yourself or your family down: not at all 7. Trouble concentrating on things, such as reading the newspaper or watching television: several days 8. Moving or speaking so slowly that other people could have noticed. Or the opposite - being so fidgety or restless that you have been moving around a lot more than usual: not at all 9. Thoughts that you would be better off or of hurting yourself in some way: not at all Total score: 5 Depression Screening Interpretation: Positive Depression Screening Done: Yes Source: Developed by Drs. Murali Hinkle, Yarely Estrada, Jaswant Sotelo and colleagues, with an educational erika from [employer]. Thrive Questionnaire Date Thrive assessed: 02/02/24 I am a: Patient What is your living situation today?: I have a steady place to live Within the past 12 months, did the food you bought not last and you didn't have the money to get more?: Never true Within the past 12 months, did you worry whether your food would run out before you got money to buy more?: Never true Do you have trouble paying for medicines?: No Do you have trouble getting transportation to medical appointments?: No Do you have trouble paying your heating and electricity bill?: No Do you have trouble taking care of your child, family member or friend?: No Do you have trouble with day-to-day activities such as bathing, preparing meals, shopping, managing finances, etc.?: No Are you currently unemployed and looking for a job?: Yes Are you interested in more education?: Yes Please select the resources that you would like help with: None Currently or been in a relationship where the following occur: No concerns reported THRIVE Score: 0 AUDIT C Alcohol Use Questionnaire (AUDIT-C) 1. How often do you have a drink containing alcohol?: Monthly or less 2. How many drinks containing alcohol do you have on a typical day when you are drinking?: 1 or 2 3. How often do you have six or more drinks on one occasion?: Never Total Score: 1 LUIS-7 AMB Questionnaire LUIS-7 Date ULIS - 7 assessed: 02/02/24 Feeling nervous, anxious, or on edge: 0 = Not at all Not being able to stop or control worryin = Not at all Worrying too much about different things: 0 = Not at all Trouble relaxin = Several days Being so restless that it is hard to sit still: 1 = Several days Becoming easily annoyed or irritable: 0 = Not at all Feeling afraid as if something awful might happen: 0 = Not at all Total LUIS-7 score (0-4 normal; 5-9 mild; 10-14 moderate; 15-21 severe): 2 Source: Developed by Drs. Murali Hinkle, Yarely Estrada, Jaswant Sotelo and colleagues, with an educational erika from [employer]. Physical exam (Primary Care) Vital Signs: Last Vital Signs Pulse 106 H 02/02/24 15:42 BP 120/62 02/02/24 15:42 Pulse Ox 98 02/02/24 15:42 Oxygen Delivery Method Room Air 02/02/24 15:42 BMI result Body Mass Index 46.0 Tobacco/Smoking Status: Tobacco use Status Tobacco use date assessed 02/02/24 02/02/24 15:45 Patient Tobacco Use Status Never used Tobacco 02/02/24 15:40 Tobacco use type Cigarette 02/02/24 15:40 e-Cigarette/Vaping Use Never Used 02/02/24 15:40 PHQ-9: PHQ-9 Score PHQ-9: Total score 5 02/02/24 15:45 Depression Screening Interpretation: Positive Thrive Assessment: Date of Thrive Assessment Date Thrive assessed 02/02/24 02/02/24 15:45 Currently or been in a relationship where the following occur: No concerns reported Const General: cooperative and healthy appearing Nutritional Appearance: well nourished Orientation/consciousness: patient oriented x3 Limitations: no limitations HENMT Head: Yes normal to inspection Eyes General: appearance normal, both eyes and all related structures Neck Neck: Yes normal visual inspection Chest Chest palpation & inspection: normal palpation of entire chest wall Resp Effort & Inspection: normal respiratory effort Neuro General: patient oriented x3 Assessment and Plan Assessment & Plan (1) Annual physical exam: Code(s): Z00.00 - Encounter for general adult medical examination without abnormal findings Plan: Blood work reviewed with patient. Coding Level of Care Code Est Pt Prev Care 40-64y(31326) Diagnoses Annual physical exam Z00.00
[2024-02-02 15:42] VITALS: BP 120/62; PULSE 106; O2SAT 98; BMI 46.0
== END 2024-02-02 15:56 | disposition home or self-care (01) ==
PROVIDERS: PCP Internal Medicine; Visit Provider Internal Medicine
DX: Z00.00 Encounter for general adult medical examination without abnormal findings (principal)

== ENCOUNTER → 2024-02-02 15:38 | Outpatient (BNVA) | payer OTHER, SELFPAY | PROVIDERS: PCP Internal Medicine; Visit Provider Internal Medicine | DX: Z00.00 Encounter for general adult medical examination without abnormal findings (principal) | CPT/HCPCS: 96127; 99396 ==

== ENCOUNTER 2024-02-06 09:00 | Outpatient (RCR) | payer OTHER, SELFPAY ==
--- NOTE | 2024-01-03 12:05 | MHC.PT.EP ---
[facility] [place] [facility] [place] [facility] [address] Oanh Blair [address] [phone] F: [phone] F: [phone] F: [phone] F: [phone] Physical Therapy Plan of Care Date of Evaluation: 01/03/24 Date of Surgery: Diagnosis: LOWER THORACIC BACK PAIN Assessment: 43 YO MALE REF TO PT WITH AN EXACERBATION OF HIS THORACOLUMBAR PAIN- HE IS CURRENTLY UNEMPLOYED- HE SPENDS HIS DAYS WALKING HIS DOG, SOME HOUSE CHORES, AND HE NOTED HE SPENDS A LOT OF TIME IN BED. HE HAD PRIOR PT AND STATED HE HAD DECR COMPLIANCY W HEP. OBJECTIVELY, THE Pt HAS DECR POSTURAL AWARENESS AND BODY MECH, LIMITED HIP FLEXIB/ CALF FLEXIB, WEAK CORE MM/ UPPER TRUNK, AND FLUCTUATING PAIN IN HIS MARCIE LB. FUNCTIONALLY, THE Pt NOTES HE HAS DECR NEO TO STANDING, BENDING, FITNESS WALKING/EXER, AND INCR ACYTIVITY. THE Pt AGREES W PT POC AND WE WILL ADDRESS THE ABOVE FINDINGS AND RE-ESTABLISH A HEP. Frequency and Duration: The patient will be seen 2 x WK x 4 WKS Short Term Goals: *DECR THORACOLUMB PAIN TO 2-3/10 *INITIATE HEP *Pt INDEP SELF CORRECT POSTURE *INCR HIP / ANKLE FLEXIB Glass Robot Operator Goals: *Pt INDEP HEP *Pt RESUME EXER/ FITNESS EVIDENT W IMPROVED OSWESTRY (AT EVAL 22/50) *Pt DEMON WFL FUNCT SQUAT AND PERF 2:2 SIMUL ADLs W APPROP MECHANICS Treatment Plan: Modalities to reduce pain, spasms and effusion. Manual therapy to restore motion and function. Therapeutic exercise to improve strength and flexibility. Neuromuscular re-education for posture and balance. Therapeutic activities to return to functional activities of daily living. Electronically signed by: MARY JANE ALVESPT Please sign and return to therapist. Thank you for your referral.
--- NOTE | 2024-02-06 09:58 | MHC.PT.DC ---
[facility] [place] Office [place] Office [place] Office [address] Oanh Blair [address] [phone] F: [phone] F: [phone] F: [phone] F: [phone] Physical Therapy Discharge Report Diagnosis: LOWER THORACIC BACK PAIN Date of Surgery: Date of Evaluation: 01/03/24 Date of Discharge: 02/06/24 Treatments to Date: 8 Cancellations to Date: 0 No Shows to Date: 0 Discharge Status: Achieved Goals Improved Function Independent with HEP Discharge Summary: ENA HAS MADE SIGNIF PROGRESS IN PT , HE MET HIS GOALS-> OSWESTRY SCORE WAS 22/50 AT EVAL AND IS 10/50 TODAY AT DISCHARGE- HE HAS A THOROUGH/ PROGRESSIVE HEP AND HAS A GREATER AWARENESS OF MORE EFFICIENT POSTURE AND BODY MECH TO REDUCE LB STRESS W ADLs- WE HAVE REINFORCED IMPORTANCE OF HEP COMPLIANCY AND IS READY FOR D/C THIS DATE Electronically signed by: MARY JANE ALVES,PT Please sign and return to therapist. Thank you for your referral.
== END 2024-02-06 09:58 | disposition home or self-care (01) ==
LOC: HO.PT 09:00
PROVIDERS: PCP Internal Medicine; Visit Provider Internal Medicine
DX: M54.6 Pain in thoracic spine (principal)
CPT/HCPCS: 97110; 97162; 97530

== ENCOUNTER 2024-03-28 15:35 | Outpatient (AMB) | payer OTHER, SELFPAY ==
[2024-03-28 15:42] VITALS: BP 132/82; PULSE 106; O2SAT 97; BMI 46.7
--- NOTE | 2024-03-28 15:42 | MHC.OFFVIS ---
Vital Signs 03/28/24 15:42 03/28/24 15:52 Height 6 ft 2 in Weight 363 lb 12.203 oz BMI 46.7 46.7 BP 132/82 Blood Pressure Location Lt brachial Position Sitting Pulse 106 H Pulse Source Pulse Oximeter Pulse Oximetry (%) 97 Oxygen Delivery Method Room Air Intake Visit Reasons: Obstructive sleep apnea Intake Note: pt is here for follow up of giorgio, and doing well with cpap, He does keep waking him up at night, he does feel like he improved but wants to do better. Grease And Tallow Pumper Required: No Allergies azithromycin Adverse Reaction (Intermediate, Verified 03/28/24 15:50) stomach pain Medication List - Last Reviewed 03/28/24 by DANA Gonzalez bupropion HCl XL 300 mg PO DAILY bupropion HCl XL 150 mg PO QAM colchicine 0.6 mg PO DAILY PRN guanfacine ER 1 mg PO DAILY PFSH Medical History Erectile dysfunction Gout Major depressive disorder in remission Morbid obesity Obstructive sleep apnea hypopnea, severe Low back pain Migraines Surgical History No pertinent past surgical history Family History Mother No problems noted. Father Mental health disorder Sister No problems noted. Other Substance use disorder Social History Housing: Apartment Alcohol intake: current Alcohol intake frequency: holidays/special occasions only Patient Tobacco Use Status: Never used Tobacco Tobacco use type: Cigarette e-Cigarette/Vaping Use: Never Used Second Hand Smoke Exposure: No service: No Current occupational status: unemployed Cognitive needs: No Hearing needs: No Vision needs: Yes Coding
--- NOTE | 2024-03-28 15:49 | A.OFFVIS_ITS ---
Vital Signs 03/28/24 15:42 03/28/24 15:52 Height 6 ft 2 in Weight 363 lb 12.203 oz BMI 46.7 46.7 BP 132/82 Blood Pressure Location Lt brachial Position Sitting Pulse 106 H Pulse Source Pulse Oximeter Pulse Oximetry (%) 97 Oxygen Delivery Method Room Air Intake Visit Reasons: Obstructive sleep apnea Allergies azithromycin Adverse Reaction (Intermediate, Verified 03/28/24 16:03) stomach pain Medication List - Last Reconciled 03/28/24 by Eusebio Rashid MD bupropion HCl XL 300 mg PO DAILY bupropion HCl XL 150 mg PO QAM colchicine 0.6 mg PO DAILY PRN guanfacine ER 1 mg PO DAILY Do you need a note to return to daycare/school/sports/work: No HPI HPI Obstructive sleep apnea: Details: THIS 43 YEARS OLD GENTLEMAN WITH MORBID OBESITY, BMI 46.7, IS A CASE OF OBSTRUCTIVE SLEEP APNEA WHICH IS BEING TREATED WITH APPLICATION OF CPAP. HE IS USING CPAP SUCCESSFULLY, ALMOST EVERY NIGHT, SKIPPED ONLY 1 NIGHT IN THE LAST 30 DAYS. HE CLAIMS THAT HE SLEEPS MUCH BETTER, BUT SOMETIMES WAKES UP DURING THE NIGHT AND HAS DIFFICULTY IN GOING BACK TO SLEEP. A BASELINE HE IS A KNOWN CASE OF DEPRESSION, ANXIETY AND ADD AND HE IS ON BUPROPION 300 MG DAILY. HIS WEIGHT HAS REMAINED UNCHANGED. HE WEARS FULLFACE MASK. EXCEPT FOR SOME DISCOMFORT HE HAS NO ISSUE WITH USING THE CPAP. [facility] Medical History Erectile dysfunction Gout Major depressive disorder in remission Morbid obesity Obstructive sleep apnea hypopnea, severe Low back pain Migraines Surgical History No pertinent past surgical history Family History Mother No problems noted. Father Mental health disorder Sister No problems noted. Other Substance use disorder Social History Housing: Apartment Alcohol intake: current Alcohol intake frequency: holidays/special occasions only Patient Tobacco Use Status: Never used Tobacco Tobacco use type: Cigarette e-Cigarette/Vaping Use: Never Used Second Hand Smoke Exposure: No service: No Current occupational status: unemployed Cognitive needs: No Hearing needs: No Vision needs: Yes Review of Systems Const All systems reviewed & are unremarkable except as noted in HPI and below Eyes Reports no additional complaints ENT Reports no additional complaints Card Denies chest pain, Denies syncope, Denies irregular heart rhythm, Denies leg edema and Denies dyspnea Resp Denies cough, Denies dyspnea and Denies wheezing GI Reports no additional complaints Reports no additional complaints Musc Reports back pain Skin/Breast Reports system reviewed and no additional complaints, except as documented Neuro Reports no additional complaints and Denies syncope Psych Reports no additional complaints and Reports depression (CONTROLLED) Endo Reports no additional complaints Wes/Lymph Reports no additional complaints Aller/Immun Denies wheezing Physical Exam Vital Signs: Last Vital Signs Pulse 106 H 03/28/24 15:42 BP 132/82 03/28/24 15:42 Pulse Ox 97 03/28/24 15:42 Oxygen Delivery Method Room Air 03/28/24 15:42 BMI result Body Mass Index 46.7 Const General: comfortable, no acute distress, alert and awake Orientation/consciousness: patient oriented x3 HEENT Head: Yes normal to inspection General nose exam: No nasal polyps present and No nasal discharge present Face and sinus: Yes sinuses nontender Mouth: oropharynx abnormals (OROPHARYNX IS MODERATELY CROWDED, MALLAMPATI CLASS 3) Throat: Yes posterior oropharynx normal Eyes General: appearance normal, both eyes and all related structures Neck Neck: Yes normal visual inspection, Yes no lymphadenopathy, Yes trachea midline, Yes no JVD and Yes other (NECK CIRCUMFERENCE IS 20 IN) Thyroid: Thyroid normal Chest Chest palpation & inspection: normal inspection of the chest, normal palpation of entire chest wall and no tenderness Resp Effort & Inspection: normal respiratory effort Auscultation: clear to auscultation bilaterally, no crackles and no wheezes Cardio Palpation: normal PMI Rate: regular rate Rhythm: regular rhythm Heart sounds: no gallops and no murmurs Peripheral pulses: Peripheral pulses 2+ throughout GI Palpation (GI): Soft to palpation, nontender, No hepatosplenomegaly present and no masses Auscultation: normal bowel sounds Back/Spine/Pelvis Thoracic/Lumbar Spine: thoracic and lumbar spine normal to inspection Skin General skin exam: no rashes or lesions noted Neuro General: patient oriented x3 and no focal motor deficits Cranial nerves: Yes CN's II-XII intact bilaterally Extrem General: Yes normal to inspection, Yes no clubbing, cyanosis or edema and Yes no calf tenderness Psych Appearance: grossly normal and well kempt Speech and movement: Normal speech and movement present Quality Reporting (2019) Adult ([facility] 138/2/69) Body Mass Index: 46.7 Results Reviewed Results Reviewed: COMPLIANCE REPORT FOR THE LAST 30 NIGHTS IS REVIEWED. HE HAS USED 29/30 NIGHTS, 97%. AVERAGE USE IT PER NIGHT 5 HOURS 8 MINUTES. THERE IS MILD TO MODERATE DEGREE OF AIR LEAK. RESIDUAL AHI 3.6 Assessment & Plan Assessment & Plan (1) Morbid obesity: Comment: BMI 46.7. HE HAS NOT BEEN ABLE TO LOSE MUCH WEIGHT. Code(s): E66.01 - Morbid (severe) obesity due to excess calories Category: Medical Plan: DISCUSSED WITH HIM, STRESSED THAT HE MUST LOSE WEIGHT, BY CUTTING DOWN THE CALORIES INTAKE AND BY DOING SOME DAILY PHYSICAL ACTIVITY/EXERCISE. (2) Obstructive sleep apnea hypopnea, severe: Comment: HE HAS MODERATELY SEVERE DEGREE OF OBSTRUCTIVE SLEEP APNEA. HE HAS BEEN USING CPAP REGULARLY AND DID USE FOR 97% OF THE NIGHTS. THIS SHOWS AN IMPROVEMENT IN HIS USAGE. THE DURATION OF HIS USAGE IS INCREASED TO 5 HOURS 8 MINUTES PER NIGHT, BETTER THAN BEFORE . Code(s): G47.33 - Obstructive sleep apnea (adult) (pediatric) Category: Medical Plan: COMMENDED FOR IMPROVED COMPLIANCE. ADVISED TO KEEP ON USING THE CPAP EVERY NIGHT. TIGHTEN THE STRAPS TO DECREASE AIR LEAK. THE USAGE OF CPAP SHOULD GET BETTER IF HE CAN LOSE SOME WEIGHT. WILL RECHECK IN 4 MONTHS Coding Level of Care Code Est Pt Level 3 (85905) Diagnoses Morbid obesity E66.01 Obstructive sleep apnea hypopnea, severe G47.33
[2024-03-28 15:52] VITALS: BMI 46.7
== END 2024-03-28 16:03 | disposition home or self-care (01) ==
PROVIDERS: PCP Internal Medicine; Visit Provider Internal Medicine
DX: E66.01 Morbid (severe) obesity due to excess calories (principal); G47.33 Obstructive sleep apnea (adult) (pediatric)
CPT/HCPCS: 99213

== ENCOUNTER → 2024-03-28 15:35 | Outpatient (BNVA) | payer OTHER, SELFPAY | PROVIDERS: PCP Internal Medicine; Visit Provider Internal Medicine | DX: G47.33 Obstructive sleep apnea (adult) (pediatric) (principal); E66.01 Morbid (severe) obesity due to excess calories; Z68.42 Body mass index [BMI] 45.0-49.9, adult | CPT/HCPCS: 99212 ==

== ENCOUNTER 2024-04-19 09:24 | Outpatient (AMB) | payer OTHER, SELFPAY ==
--- NOTE | 2024-04-19 09:36 | MHC.PC.OV ---
Vital Signs 04/19/24 09:37 Height 6 ft 2 in Weight 353 lb 2 oz BMI 45.3 BP 120/90 H Blood Pressure Location Lt brachial Position Sitting Pulse 98 Pulse Source Pulse Oximeter Pulse Oximetry (%) 97 Oxygen Delivery Method Room Air Intake Visit Reasons: 6mof\u Intake Note: Patient is here to follow up on CARL, ED, ADD. Workforce Consultant Required: No Performance Instructor: Not Required per policy Accompanied by: Self / Same As Patient Allergies azithromycin Adverse Reaction (Intermediate, Verified 04/19/24 10:40) stomach pain Medication List - Last Reconciled 04/19/24 by Mitzi Quijano PA-C bupropion HCl XL 300 mg PO DAILY bupropion HCl XL 150 mg PO QAM colchicine 0.6 mg PO DAILY PRN docusate sodium (Colace) 100 mg PO DAILY guanfacine ER 1 mg PO DAILY polyethylene glycol 3350 (Miralax) 17 grams PO DAILY Tobacco use date assessed: 04/19/24 Dental Screening Dental Screen Date: 07/20/23 [facility] Medical History (Updated 04/19/24 @ 11:15 by Mitzi Quijano PA-C) Constipation Essential tremor Follow-up exam, 3-6 months since previous exam Wellness examination Encounter for screening colonoscopy Vasectomy evaluation Erectile dysfunction Gout Major depressive disorder in remission Morbid obesity Obstructive sleep apnea hypopnea, severe Low back pain Migraines Surgical History No pertinent past surgical history Family History Mother No problems noted. Father Mental health disorder Sister No problems noted. Other Substance use disorder Social History Housing: Apartment Alcohol intake: current Alcohol intake frequency: holidays/special occasions only Patient Tobacco Use Status: Never used Tobacco Tobacco use type: Cigarette e-Cigarette/Vaping Use: Never Used Second Hand Smoke Exposure: No service: No Current occupational status: unemployed Cognitive needs: No Hearing needs: No Vision needs: Yes Questionnaire Thrive Questionnaire Date Thrive assessed: 02/02/24 I am a: Patient What is your living situation today?: I have a steady place to live Within the past 12 months, did the food you bought not last and you didn't have the money to get more?: Never true Within the past 12 months, did you worry whether your food would run out before you got money to buy more?: Never true Do you have trouble paying for medicines?: No Do you have trouble getting transportation to medical appointments?: No Do you have trouble paying your heating and electricity bill?: No Do you have trouble taking care of your child, family member or friend?: No Do you have trouble with day-to-day activities such as bathing, preparing meals, shopping, managing finances, etc.?: No Are you currently unemployed and looking for a job?: Yes Are you interested in more education?: Yes Please select the resources that you would like help with: None Currently or been in a relationship where the following occur: No concerns reported THRIVE Score: 0 LUIS-7 AMB Questionnaire LUIS-7 Date LUIS - 7 assessed: 02/02/24 Source: Developed by Drs. Murali Hinkle, Yarely Estrada, Jaswant Sotelo and colleagues, with an educational erika from [employer]. Physical exam (Primary Care) Vital Signs: Last Vital Signs Pulse 98 04/19/24 09:37 BP 120/90 H 04/19/24 09:37 Pulse Ox 97 04/19/24 09:37 Oxygen Delivery Method Room Air 04/19/24 09:37 BMI result Body Mass Index 45.3 Tobacco/Smoking Status: Tobacco use Status Tobacco use date assessed 04/19/24 04/19/24 09:41 Patient Tobacco Use Status Never used Tobacco 04/19/24 09:41 Tobacco use type Cigarette 04/19/24 09:41 e-Cigarette/Vaping Use Never Used 04/19/24 09:41 Thrive Assessment: Date of Thrive Assessment Date Thrive assessed 02/02/24 04/19/24 09:41 Currently or been in a relationship where the following occur: No concerns reported Coding Level of Care Code Est Pt Level 4 (39301) Complex EM visit Add On G2211 Diagnoses Follow-up exam, 3-6 months since previous exam Z09 Erectile dysfunction N52.9 Vasectomy evaluation Z30.09 Encounter for screening colonoscopy Z12.11 Gout M10.9 Major depressive disorder in remission F32.5 Obstructive sleep apnea hypopnea, severe G47.33 Morbid obesity E66.01 ADD (attention deficit disorder) F98.8 Essential tremor G25.0 Migraines G43.909 Constipation K59.00 Assessment & Plan Assessment & Plan (1) Follow-up exam, 3-6 months since previous exam: Code(s): Z09 - Encounter for follow-up examination after completed treatment for conditions other than malignant neoplasm Category: Medical Plan: see below (2) Erectile dysfunction: Code(s): N52.9 - Male erectile dysfunction, unspecified Category: Medical Plan: see below (3) Vasectomy evaluation: Code(s): Z30.09 - Encounter for other general counseling and advice on contraception Category: Medical Plan: see below (4) Encounter for screening colonoscopy: Code(s): Z12.11 - Encounter for screening for malignant neoplasm of colon Category: Medical Plan: see below (5) Gout: Code(s): M10.9 - Gout, unspecified Category: Medical Plan: see below (6) Major depressive disorder in remission: Code(s): F32.5 - Major depressive disorder, single episode, in full remission Category: Medical Plan: see below (7) Obstructive sleep apnea hypopnea, severe: Comment: HE HAS MODERATELY SEVERE DEGREE OF OBSTRUCTIVE SLEEP APNEA. HE HAS BEEN USING CPAP REGULARLY AND DID USE FOR 97% OF THE NIGHTS. THIS SHOWS AN IMPROVEMENT IN HIS USAGE. THE DURATION OF HIS USAGE IS INCREASED TO 5 HOURS 8 MINUTES PER NIGHT, BETTER THAN BEFORE . Code(s): G47.33 - Obstructive sleep apnea (adult) (pediatric) Category: Medical Plan: see below (8) Morbid obesity: Comment: BMI 46.7. HE HAS NOT BEEN ABLE TO LOSE MUCH WEIGHT. Code(s): E66.01 - Morbid (severe) obesity due to excess calories Category: Medical Plan: see below (9) ADD (attention deficit disorder): Code(s): F98.8 - Other specified behavioral and emotional disorders with onset usually occurring in childhood and adolescence Category: Medical Plan: see below (10) Essential tremor: Code(s): G25.0 - Essential tremor Category: Medical Plan: see below (11) Migraines: Code(s): G43.909 - Migraine, unspecified, not intractable, without status migrainosus Category: Medical Plan: see below (12) Constipation: Code(s): K59.00 - Constipation, unspecified Category: Medical Plan: see below Plan Plan - Referral to a [facility] to re-establish therapist/psychiatrist for continuation of mental health management; Continue taking Bupropion and Guanfacine as prescribed. - Monitor gout symptoms and report any increase in flare frequency; RX for p.r.n. colchicine for gout prophylaxis if frequency increases. - Use CPAP consistently and report any significant sleep disruptions. - Referral for erectile dysfunction to urology. - Referral to GI for routine colonoscopy given family history of polyps. - Suggested trial of stool softener for constipation management; consider Miralax. - Consider lifestyle modifications to address tremors and migraines, such as consistent sleep schedules and possibly physical therapy exercises. - Discussed preventative measures and lifestyle adjustments, particularly relating to exercise and sleep hygiene. - Report any persistent or worsening symptoms. Orders: Orders Comprehensive [place]. Panel Fast Today Z00.00 - Encounter for general adult medical examination without abnormal findings C Reactive Protein Today Z00.00 - Encounter for general adult medical examination without abnormal findings Vitamin B12 and Folate Today R79.89 - Other specified abnormal findings of blood chemistry Magnesium Today Z00.00 - Encounter for general adult medical examination without abnormal findings Complete Blood Count Auto Diff Today Z00.00 - Encounter for general adult medical examination without abnormal findings Hemoglobin A1c Today E11.9 - Type 2 diabetes mellitus without complications Lipid Panel Today Z00.00 - Encounter for general adult medical examination without abnormal findings Liver Panel Today Z00.00 - Encounter for general adult medical examination without abnormal findings Erythrocyte Sedimentation Rate Today Z00.00 - Encounter for general adult medical examination without abnormal findings TSH reflex Free T4 Today Z00.00 - Encounter for general adult medical examination without abnormal findings Vitamin D 25-OH Total Today R79.89 - Other specified abnormal findings of blood chemistry Referrals Gastroenterology Referral Z12.11 - Encounter for screening for malignant neoplasm of colon Urology Referral N52.9 - Male erectile dysfunction, unspecified, Z30.09 - Encounter for other general counseling and advice on contraception Medications: New bupropion HCl XL 300 mg PO QAM 30 tabs 2RF colchicine 0.6 mg PO DAILY PRN 14 tabs 2RF Gout guanfacine ER 1 mg PO DAILY 30 tabs 2RF bupropion HCl XL 150 mg PO QAM 30 tabs 2RF docusate sodium (Colace) 100 mg PO DAILY 30 caps 2RF constipation polyethylene glycol 3350 (Miralax) 17 grams PO DAILY 510 grams 2RF constipation meloxicam 15 mg PO DAILY 30 tabs 2RF Scribe Plan - Not visible on output: History of Present Illness The patient is a 43-year-old male presenting for a six-month follow-up and management of ongoing medical conditions. He has a history of Major Depressive Disorder and has been taking Bupropion (450 mg once daily) and Guanfacine, which were previously prescribed by his therapist at [facility]. The patient has been without therapist contact for nearly two months due to communication issues, resulting in case closure. He reports using a CPAP device for management of Obstructive Sleep Apnea but continues to experience disturbances, averaging about five hours of sleep nightly. He still feels fatigued upon waking. The patient reports worsening Erectile Dysfunction, untreated currently. Migraine headaches occur approximately one to two times per month, correlating with poor sleep quality. The patient notes occasional relief with kpxq-wsh-[id number] remedies during these episodes. Gout, which the patient manages with colchicine, occurs approximately once yearly, but has been infrequent. The patient also reports exploring treatments for tremors and arthritis in his left hand, affecting the four fingers with discomfort exacerbated by cold exposure. Tremors worsen with intentional movement. Arthritic symptoms are described as worsening with flexion and cold. Additionally, the patient often experiences constipation. Social History - Employment: Unemployed. - Exercise: Sporadic; not currently structured. - Substance Use: Minimal alcohol consumption, about once a month. - Sleep: Uses CPAP for sleep apnea. - Family History: Father had polyps, no colon cancer reported. - Preventative Care: Received flu and COVID vaccines recently. Review of Systems - Neurological: Reports migraines. - Musculoskeletal: Reports hand tremors and arthritis. - Gastrointestinal: Reports constipation. - Genitourinary: Reports erectile dysfunction. - Sleep: Reports disturbances and feels fatigued. - General: Reports fatigue. Physical Exam Appearance: Alert. Oriented X3. No acute distress. Head: Normal external exam. Normocephalic. Atraumatic. No Howard signs noted. No raccoon eyes noted. Eyes: Pupils are equal, round, and reactive to light. Extraocular movements intact. Conjunctiva and sclera normal. Eyelids normal. Ears: External auditory canal normal. Tympanic membranes normal. Throat: Pharynx normal. Uvula midline. Moist mucous membranes. No trismus noted. No drooling noted. No muffled voice noted. Neck: Normal inspection. Neck supple. Full range of motion. No adenopathy. Thyroid Normal. No meningeal signs. No neck mass noted. Cardiovascular: Normal heart rate and rhythm. Heart sound normal. No murmurs noted. Pulses normal throughout. Respiratory: No respiratory distress. Painless inspiration. Breath sounds normal. No wheezes/rales/rhonchi noted. Chest nontender. No accessory muscle usage noted or decreased air movement noted. Abdomen: Soft and nontender. Bowel sounds normal in all 4 quadrants. No distention noted. No organomegaly noted. No visible injury noted. Back: No costovertebral angle tenderness. Full range of motion noted. Skin: Skin warm and dry. Normal skin color. Normal skin turgor. No rashes/lesions/lacerations noted. Extremities: No lower extremity edema. Extremities exhibit normal range of motion. Extremities nontender. Neuro: Oriented X 3. No motor deficit. No sensory deficit. Reflexes normal Plan - Referral to a [facility] to re-establish therapist/psychiatrist for continuation of mental health management; Continue taking Bupropion and Guanfacine as prescribed. - Monitor gout symptoms and report any increase in flare frequency; RX for p.r.n. colchicine for gout prophylaxis if frequency increases. - Use CPAP consistently and report any significant sleep disruptions. - Referral for erectile dysfunction to urology. - Referral to GI for routine colonoscopy given family history of polyps. - Suggested trial of stool softener for constipation management; consider Miralax. - Consider lifestyle modifications to address tremors and migraines, such as consistent sleep schedules and possibly physical therapy exercises. - Discussed preventative measures and lifestyle adjustments, particularly relating to exercise and sleep hygiene. - Report any persistent or worsening symptoms. Discussion Notes I discussed the patient's current medication regimen and the need to establish care with a new psychiatrist for ongoing mental health management. We reviewed the potential reasons for the apparent sleep disturbances despite CPAP use and discussed potential further evaluations. I offered an explanation of the potential benefits of introducing indomethacin for gout prophylaxis. Additionally, I discussed the management of constipation. Discussed taking [id number] medication for migraine headaches. Discussed benign essential tremor. We talked about the need for a colonoscopy considering his father?s history of polyps and ensured patient understanding of its importance. Patient was informed and verbally consented to the use of an ambient scribe for clinic note documentation during this visit.
[2024-04-19 09:37] VITALS: BP 120/90; PULSE 98; O2SAT 97; BMI 45.3
== END 2024-04-19 12:36 | disposition home or self-care (01) ==
PROVIDERS: PCP Internal Medicine; Visit Provider Physician Assistant Medical
DX: N52.9 Male erectile dysfunction, unspecified (principal); F32.5 Major depressive disorder, single episode, in full remission; E66.01 Morbid (severe) obesity due to excess calories; Z68.42 Body mass index [BMI] 45.0-49.9, adult; Z09 Encounter for follow-up examination after completed treatment for conditions other than malignant neoplasm; Z30.09 Encounter for other general counseling and advice on contraception; Z12.11 Encounter for screening for malignant neoplasm of colon; M10.9 Gout, unspecified; G47.33 Obstructive sleep apnea (adult) (pediatric); G25.0 Essential tremor; G43.909 Migraine, unspecified, not intractable, without status migrainosus; K59.00 Constipation, unspecified

== ENCOUNTER 2024-04-19 09:24 | Outpatient (REF) | payer OTHER, SELFPAY ==
[2024-04-19 11:11] LABS: MANUAL DIFF FLAG NO
[2024-04-19 11:45] LABS: Basophils Absolute Auto 0.1 X10*3/uL (0.0-0.2); Basophils Percent Auto 1.1 % (0-2); Eosinophils Absolute Auto 0.1 X10*3/uL (0.0-0.4); Hematocrit 49.9 % (42.0-52.0); Hemoglobin 16.9 g/dl (14.0-18.0); Imm Gran Abs Auto 0.03 X10*3/uL (0.00-0.03); Imm Gran Pct Auto 0.3 % (0.0-0.4); Lymphocytes Absolute Auto 2.7 X10*3/uL (1.2-4.9); Lymphocytes Percent Auto 26.3 % (20-40); Mean Corpuscular HGB Conc 33.9 g/dl (31.0-36.0); Mean Corpuscular Hemoglobin 28.9 pg (27.0-33.0); Mean Corpuscular Volume 85.4 fL (80.0-98.0); Mean Platelet Volume 10.3 fL (9.4-12.4); Monocytes Absolute Auto 0.7 X10*3/uL (0.1-1.2); Monocytes Percent Auto 7.3 % (2-11); Neutrophils Absolute Auto 6.5 x10*3/uL (2.0-8.3); Platelet Count 324 X10*3/uL (160-400); Red Blood Count 5.84 X10*6/uL (4.60-5.80); Red Cell Distribution Width 13.2 % (11.0-16.0); White Blood Count 10.2 X10*3/uL (4.8-10.8)
[2024-04-19 11:51] LABS: Estimated Average Glucose 100 mg/dL; Hemoglobin A1C 140.8923 umol/L; Hemoglobin A1c % 5.1 % (<6.0); Total Hemoglobin (HGBA1C) 4414.7454 umol/L
[2024-04-19 12:25] LABS: Erythrocyte Sedimentation Rate 18 MM/HR (0-15)
[2024-04-19 12:34] LABS: Alanine Aminotransferase 30 U/L (0-40); Albumin Level 4.5 g/dL (3.5-5.0); Alkaline Phosphatase 101 U/L (39-117); Anion Gap 16 (12-20); Aspartate Amino Transferase 30 U/L (5-37); Bilirubin Direct 0.3 mg/dL (0.0-0.5); Bilirubin Total 0.9 mg/dL (0.0-1.0); Blood Urea Nitrogen 10 mg/dL (9-16); C Reactive Protein 1.33 mg/dL (< or = 0.50); Calcium 9.9 mg/dL (8.4-10.2); Carbon Dioxide 25 mmol/L (22-29); Chloride 106 mmol/L (96-108); Cholesterol 173 mg/dL (<200); Estimated Glomerular Filt Rate > 60; Glucose Fasting 85 mg/dL (60-99); HDL Cholesterol 37 mg/dL (>40); LDL Cholesterol Calculated 107 mg/dL (<100); Magnesium 2.2 mg/dL (1.6-2.6); Potassium 3.8 mmol/L (3.3-5.1); Sodium 143 mmol/L (135-145); TSH reflex Free T4 2.85 uIU/mL (0.32-4.0); Total Protein 8.5 g/dL (6.5-8.0); Triglycerides 149 mg/dL (<150); Vitamin D 25-OH Total 34.3 ng/mL (>30)
[2024-04-19 12:48] LABS: Folate 16.5 ng/mL (> or = 4.0); Vitamin B12 429 pg/mL (200-900)
== END 2024-04-19 09:25 | disposition home or self-care (01) ==
LOC: HO.LAB 09:24
PROVIDERS: PCP Internal Medicine; Visit Provider Physician Assistant Medical
DX: N52.9 Male erectile dysfunction, unspecified (principal); M10.9 Gout, unspecified; F32.5 Major depressive disorder, single episode, in full remission; G47.33 Obstructive sleep apnea (adult) (pediatric); E66.01 Morbid (severe) obesity due to excess calories; Z68.42 Body mass index [BMI] 45.0-49.9, adult; F98.8 Other specified behavioral and emotional disorders with onset usually occurring in childhood and adolescence; G25.0 Essential tremor; G43.909 Migraine, unspecified, not intractable, without status migrainosus; K59.00 Constipation, unspecified; Z30.09 Encounter for other general counseling and advice on contraception; Z00.00 Encounter for general adult medical examination without abnormal findings; R79.89 Other specified abnormal findings of blood chemistry; E11.9 Type 2 diabetes mellitus without complications
CPT/HCPCS: 36415; 80053; 80061; 80076; 82248; 82306; 82607; 82746; 83036; 83735; 84443; 85025; 85652; 86140; 99212

== ENCOUNTER 2024-07-16 10:43 | Outpatient (AMB) | payer OTHER, SELFPAY ==
--- NOTE | 2024-07-16 11:00 | MHC.OFFVIS ---
Intake Visit Reasons: erectile dysfunction/ vasectomy evaluation Intake Note: New patient presents today for initial visit for erectile dysfunction/vasectomy evaluation Urology Medication:none Blood Thinner:none Antibiotic Allergies: Azithromycin PVR: Allergies azithromycin Adverse Reaction (Intermediate, Verified 07/16/24 11:04) stomach pain HPI Comments Details: History of Present Illness The patient is a 43-year-old male presenting with a request for vasectomy and concerns regarding erectile dysfunction. He is confident in his decision to pursue a vasectomy due to a lack of desire for future procreation, demonstrating awareness of the procedure's permanence and the subsequent fertility implications if attempted reversal. He acknowledges the need for semen analysis post-procedure. For erectile dysfunction, the patient identifies challenges in maintaining erections, observing a decline over several years with occasional morning erections still occurring. Back pain appears to be a contributing factor. The patient has not explored any pharmacologic interventions up to this point and is open to trialing a daily tadalafil regimen, aimed at sustaining erectile function. An investigation into testosterone levels and related hormones is planned, with attention to insurance coverage for medications through pharmacy discount programs. He denies previous treatments or consultations for his erectile concerns. Urinary Symptoms Review Review of Systems - Genitourinary: Reports occasional morning erections; reports difficulty maintaining erections during sexual activity. - Neurological: Reports significant back pain as a contributing factor to erectile dysfunction. Const All systems reviewed & are unremarkable except as noted in HPI and below Reports no additional complaints Eyes Reports no additional complaints ENT Reports no additional complaints Card Reports no additional complaints Resp Reports no additional complaints GI Reports no additional complaints Reports as per HPI Musc Reports no additional complaints Skin/Breast Reports system reviewed and no additional complaints, except as documented Neuro Reports no additional complaints Psych Reports no additional complaints Endo Reports no additional complaints Wes/Lymph Reports no additional complaints Aller/Immun Reports no additional complaints Physical Exam General: Healthy appearing, no acute distress and well developed Orientation and consciousness: Patient oriented x3 Head: Yes normocephalic and Yes atraumatic Eyes: Conjunctivae normal Neck: Yes normal visual inspection Chest: Normal inspection of the chest Respiratory: Normal respiratory effort GI: Normal to inspection : Extremities: Skin: Neurology: Patient oriented x3 Psych: Appearance grossly normal. Normal affect Results - Labs: Plan for blood work to assess testosterone and related hormonal levels with a fasting requirement. Plan The patient is prepared for a vasectomy, understanding the permanency and fertility implications post-procedure. Specific risk factors associated with vasectomy were detailed, and a postoperative plan is in place, including semen analysis benchmarks. Dr. Morales will perform the procedure with detailed informed consent documented, acknowledging all aspects of surgical risk and recovery. The patient will initiate tadalafil 5 mg daily for erectile dysfunction, anticipating functional improvement in approximately three months. The assessment of testosterone levels and related hormones is planned to confirm any underlying physiological issues. Coupons and pharmacy selection, such as [facility], or [facility], were recommended for prescription affordability. The patient will follow up for the semen evaluation and evaluation of the Cialis effect. Patient was informed and verbally consented to the use of an ambient scribe for clinic note documentation during this visit. Discussion Notes I discussed with the patient the permanent nature and process of a vasectomy, involving the division and sealing of the vasa deferentia to prevent sperm from entering the seminal fluid. I reviewed the likelihood of pain syndromes and granuloma formation, emphasizing the rare need for further intervention. The procedure's risks, such as infection and bleeding, were highlighted, and consent is necessary 30 days prior. I covered erectile dysfunction, including factors like age and his back pain as contributors. I proposed tadalafil 5 mg as a starting point, anticipating improvement within three months. Providing convenience in medication acquisition via a [employer] program and acceptable pharmacy options was part of our discussion. I outlined testosterone assessment and future follow-up for both vasectomy and erectile function as part of our comprehensive plan. Patient Instructions - Schedule vasectomy with Dr. Morales and ensure consent is completed 30 days prior. - Begin tadalafil 5 mg daily to address erectile dysfunction. - Conduct fasting blood work to assess testosterone and other hormones. - Follow up in three months for evaluation of erectile function improvement and successful vasectomy outcome. - Utilize [employer] coupons for prescribed medications at suggested pharmacies like [facility], or [facility]. [facility] Medical History Constipation Essential tremor Follow-up exam, 3-6 months since previous exam Wellness examination Encounter for screening colonoscopy Vasectomy evaluation Erectile dysfunction Gout Major depressive disorder in remission Morbid obesity Obstructive sleep apnea hypopnea, severe Low back pain Migraines Surgical History No pertinent past surgical history Family History Mother No problems noted. Father Mental health disorder Sister No problems noted. Other Substance use disorder Social History Housing: Apartment Alcohol intake: current Alcohol intake frequency: holidays/special occasions only Patient Tobacco Use Status: Never used Tobacco Tobacco use type: Cigarette e-Cigarette/Vaping Use: Never Used Second Hand Smoke Exposure: No service: No Current occupational status: unemployed Cognitive needs: No Hearing needs: No Vision needs: Yes Review of Systems Const All systems reviewed & are unremarkable except as noted in HPI and below Reports no additional complaints Eyes Reports no additional complaints ENT Reports no additional complaints Card Reports no additional complaints Resp Reports no additional complaints GI Reports no additional complaints Reports as per HPI Musc Reports no additional complaints Skin/Breast Reports system reviewed and no additional complaints, except as documented Neuro Reports no additional complaints Psych Reports no additional complaints Endo Reports no additional complaints Wes/Lymph Reports no additional complaints Aller/Immun Reports no additional complaints Physical Exam Const General: healthy appearing, no acute distress and well developed Orientation/consciousness: patient oriented x3 HEENT Head: Yes normocephalic and Yes atraumatic Eyes Conjunctivae: conjunctivae normal Neck Neck: Yes normal visual inspection Chest Chest palpation & inspection: normal inspection of the chest Resp Effort & Inspection: normal respiratory effort GI Inspection: Yes normal to inspection Neuro General: patient oriented x3 Extrem General: No pedal edema Psych Appearance: grossly normal Affect: normal affect Results AMB Urinalysis, Automated UA Leukoctes 0 Esthela/uL Last Edit by Rosita Valles on 07/16/24 11:55 UA Nitrite Negative Last Edit by Rosita Valles on 07/16/24 11:55 UA Urobilinogen 3.5 mg/dL Last Edit by Rosita Valles on 07/16/24 11:55 UA Protein 0 mg/dL Last Edit by Rosita Valles on 07/16/24 11:55 UA pH 5.0 Last Edit by Rosita Valles on 07/16/24 11:55 UA Blood 0 Bob/uL Last Edit by Rosita Valles on 07/16/24 11:55 UA Specific Chunky 1.020 Last Edit by Rosita Valles on 07/16/24 11:55 UA Ketone Negative Last Edit by Rosita Valles on 07/16/24 11:55 UA Bilirubin 0 mg/dL Last Edit by Rosita Valles on 07/16/24 11:55 UA Glucose 0 mg/dL Last Edit by Rosita Valles on 07/16/24 11:55 Assessment & Plan Assessment & Plan Orders: Orders AMB Urinalysis Automated Today Z13.9 - Encounter for screening, unspecified Medications: New tadalafil USE [employer] COUPON ATTACHED NOT INSURANCE [id number] [facility] [id number] Member [id number] 5 mg PO DAILY 30 tabs 5RF 30 days Coding
== END 2024-07-16 11:49 | disposition home or self-care (01) ==
PROVIDERS: PCP Internal Medicine; Visit Provider Urology
DX: Z13.9 Encounter for screening, unspecified (principal)

== ENCOUNTER → 2024-07-16 10:43 | Outpatient (BNVA) | payer OTHER, SELFPAY | PROVIDERS: PCP Internal Medicine; Visit Provider Urology | DX: N52.9 Male erectile dysfunction, unspecified (principal); R45.89 Other symptoms and signs involving emotional state; Z30.09 Encounter for other general counseling and advice on contraception | CPT/HCPCS: 81003; 99202 ==

== ENCOUNTER 2024-07-25 13:28 | Outpatient (AMB) | payer OTHER, SELFPAY ==
[2024-07-25 13:34] VITALS: BP 124/80; PULSE 100; O2SAT 97; BMI 47.0
--- NOTE | 2024-07-25 13:34 | A.OFFVIS_ITS ---
Vital Signs 07/25/24 13:34 Height 6 ft 2 in Weight 365 lb 15.477 oz BMI 47.0 BP 124/80 Blood Pressure Location Lt brachial Position Sitting Pulse 100 Pulse Source Pulse Oximeter Pulse Oximetry (%) 97 Oxygen Delivery Method Room Air Intake Visit Reasons: Obstructive sleep apnea Intake Note: pt is here for follow up and cpap is going okay, feeling well Solid Die Cutter Required: No Allergies azithromycin Adverse Reaction (Intermediate, Verified 07/25/24 13:49) stomach pain Medication List - Last Reconciled 07/25/24 by Eusebio Rashid MD bupropion HCl XL 300 mg PO QAM bupropion HCl XL 150 mg PO QAM colchicine 0.6 mg PO DAILY PRN docusate sodium (Colace) 100 mg PO DAILY PRN guanfacine ER 1 mg PO DAILY meloxicam 15 mg PO DAILY PRN polyethylene glycol 3350 (Miralax) 17 grams PO DAILY PRN tadalafil 5 mg PO DAILY Do you need a note to return to daycare/school/sports/work: No HPI HPI Obstructive sleep apnea: Details: 44 years old gentleman with morbid obesity and diagnosis of obstructive sleep apnea is being treated for CARL, . He is using his CPAP every night regularly and average use it per night is 6 hours 52 minutes. Sleep quality is good, he has no issues with the mask or CPAP device. Only problem is he has not been able to lose much weight. He is not in any active weight reduction program. [facility] Medical History Constipation Essential tremor Follow-up exam, 3-6 months since previous exam Wellness examination Encounter for screening colonoscopy Vasectomy evaluation Erectile dysfunction Gout Major depressive disorder in remission Morbid obesity Obstructive sleep apnea hypopnea, severe Low back pain Migraines Surgical History No pertinent past surgical history Family History Mother No problems noted. Father Mental health disorder Sister No problems noted. Other Substance use disorder Social History Housing: Apartment Alcohol intake: current Alcohol intake frequency: holidays/special occasions only Patient Tobacco Use Status: Never used Tobacco Tobacco use type: Cigarette e-Cigarette/Vaping Use: Never Used Second Hand Smoke Exposure: No service: No Current occupational status: unemployed Cognitive needs: No Hearing needs: No Vision needs: Yes Review of Systems Const All systems reviewed & are unremarkable except as noted in HPI and below Eyes Reports no additional complaints ENT Reports no additional complaints Card Denies chest pain, Denies syncope, Denies irregular heart rhythm, Denies leg edema and Denies dyspnea Resp Denies cough, Denies dyspnea and Denies wheezing GI Reports no additional complaints Reports no additional complaints Musc Reports back pain Skin/Breast Reports system reviewed and no additional complaints, except as documented Neuro Reports no additional complaints and Denies syncope Psych Reports no additional complaints and Reports depression (CONTROLLED) Endo Reports no additional complaints Wes/Lymph Reports no additional complaints Aller/Immun Denies wheezing Physical Exam Vital Signs: Last Vital Signs Pulse 100 07/25/24 13:34 BP 124/80 07/25/24 13:34 Pulse Ox 97 07/25/24 13:34 Oxygen Delivery Method Room Air 07/25/24 13:34 BMI result Body Mass Index 47.0 Const General: comfortable, no acute distress, alert and awake Orientation/consciousness: patient oriented x3 HEENT Head: Yes normal to inspection General nose exam: No nasal polyps present and No nasal discharge present Face and sinus: Yes sinuses nontender Mouth: oropharynx abnormals (OROPHARYNX IS MODERATELY CROWDED, MALLAMPATI CLASS 3) Throat: Yes posterior oropharynx normal Eyes General: appearance normal, both eyes and all related structures Neck Neck: Yes normal visual inspection, Yes no lymphadenopathy, Yes trachea midline, Yes no JVD and Yes other (NECK CIRCUMFERENCE IS 20 IN) Thyroid: Thyroid normal Chest Chest palpation & inspection: normal inspection of the chest, normal palpation of entire chest wall and no tenderness Resp Effort & Inspection: normal respiratory effort Auscultation: clear to auscultation bilaterally, no crackles and no wheezes Cardio Palpation: normal PMI Rate: regular rate Rhythm: regular rhythm Heart sounds: no gallops and no murmurs Peripheral pulses: Peripheral pulses 2+ throughout GI Palpation (GI): Soft to palpation, nontender, No hepatosplenomegaly present and no masses Auscultation: normal bowel sounds Back/Spine/Pelvis Thoracic/Lumbar Spine: thoracic and lumbar spine normal to inspection Skin General skin exam: no rashes or lesions noted Neuro General: patient oriented x3 and no focal motor deficits Cranial nerves: Yes CN's II-XII intact bilaterally Extrem General: Yes normal to inspection, Yes no clubbing, cyanosis or edema and Yes no calf tenderness Psych Appearance: grossly normal and well kempt Speech and movement: Normal speech and movement present Results Reviewed Results Reviewed: Compliance report for the last 30 nights is reviewed he has used 100% of the nights. Average use it per night 6 hours 52 minutes. Pressure used is mostly 9 and maximum of 15 cm there is some air leak, maximum 67 L/minute Residual AHI is only 1.4 Assessment & Plan Assessment & Plan (1) Morbid obesity: Comment: BMI 47.0. HE HAS NOT BEEN ABLE TO LOSE MUCH WEIGHT. Code(s): E66.01 - Morbid (severe) obesity due to excess calories Category: Medical Plan: Talked to him and advised that he should join some weight management program. He is not able to do much exercise due to his chronic back pain. (2) Obstructive sleep apnea hypopnea, severe: Comment: HE HAS MODERATELY SEVERE DEGREE OF OBSTRUCTIVE SLEEP APNEA. HE HAS BEEN USING CPAP REGULARLY AND DID USE FOR 100% OF THE NIGHTS. Average use it per night for 6 hours 52 minutes which is good. Code(s): G47.33 - Obstructive sleep apnea (adult) (pediatric) Category: Medical Plan: Commended for good compliance and advised to continue using the CPAP regularly every night Medications: Changed From docusate sodium (Colace) 100 mg PO DAILY 30 caps 2RF constipation To docusate sodium (Colace) 100 mg PO DAILY PRN Mitzi Quijano PA-C From meloxicam 15 mg PO DAILY 30 tabs 2RF To meloxicam 15 mg PO DAILY PRN Mitzi Quijano PA-C From polyethylene glycol 3350 (Miralax) 17 grams PO DAILY 510 grams 2RF constipation To polyethylene glycol 3350 (Miralax) 17 grams PO DAILY PRN Mitzi Quijano PA-C From tadalafil USE [employer] NOT INSURANCE [id number] [facility] [id number] Member [id number] 5 mg PO DAILY PRN To tadalafil USE [employer] NOT INSURANCE [id number] [facility]33 Member [id number] 5 mg PO DAILY Odilia Wiley MD Coding Level of Care Code Est Pt Level 3 (21667) Diagnoses Morbid obesity E66.01 Obstructive sleep apnea hypopnea, severe G47.33
== END 2024-07-25 13:52 | disposition home or self-care (01) ==
LOC: HO.HPS 13:29
PROVIDERS: PCP Internal Medicine; Visit Provider Internal Medicine
DX: E66.01 Morbid (severe) obesity due to excess calories (principal); G47.33 Obstructive sleep apnea (adult) (pediatric)
CPT/HCPCS: 99213

== ENCOUNTER → 2024-07-25 13:28 | Outpatient (BNVA) | payer OTHER, SELFPAY | PROVIDERS: PCP Internal Medicine; Visit Provider Internal Medicine | DX: G47.33 Obstructive sleep apnea (adult) (pediatric) (principal); E66.01 Morbid (severe) obesity due to excess calories; Z68.42 Body mass index [BMI] 45.0-49.9, adult; Z79.899 Other long term (current) drug therapy | CPT/HCPCS: 99212 ==

== ENCOUNTER 2024-08-02 11:31 | Outpatient (AMB) | payer OTHER, SELFPAY ==
[2024-08-02 11:43] VITALS: BP 138/84; PULSE 98; TEMP 36.1; O2SAT 100; BMI 47.0
--- NOTE | 2024-08-02 11:43 | MHC.PC.OV ---
Vital Signs 08/02/24 11:43 Height 6 ft 2 in Weight 366 lb 4 oz BMI 47.0 BP 138/84 Blood Pressure Location Lt brachial Position Sitting Pulse 98 Pulse Source Pulse Oximeter Temp 96.9 F Temp Source Temporal Artery Scan Pulse Oximetry (%) 100 Oxygen Delivery Method Room Air Intake Visit Reasons: 6 months follow up Performance Consultant Required: No Accompanied by: Self / Same As Patient Allergies azithromycin Adverse Reaction (Intermediate, Verified 08/02/24 11:53) stomach pain Medication List - Last Reconciled 08/02/24 by Mitzi Quijano PA-C atorvastatin 10 mg PO BEDTIME bupropion HCl XL 300 mg PO QAM bupropion HCl XL 150 mg PO QAM colchicine 0.6 mg PO DAILY PRN docusate sodium (Colace) 100 mg PO DAILY PRN guanfacine ER 1 mg PO DAILY meloxicam 15 mg PO DAILY PRN polyethylene glycol 3350 (Miralax) 17 grams PO DAILY PRN tadalafil 5 mg PO DAILY Tobacco use date assessed: 08/02/24 Dental Screening Dental Screen Date: 08/02/24 Did you have a dental visit in the last 12 months?: Yes Did you have a dental problem in the last 6 months where you did not have access to dental care?: No Was dental information given to patient?: Patient has dentist PENDING SALE TO [facility] Medical History (Updated 08/02/24 @ 12:39 by Mitzi Quijano PA-C) Obesity, morbid, BMI 40.0-49.9 Hyperlipidemia LDL goal <100 Depression Plantar fasciitis, left Chronic back pain Left axillary pain Enlarged lymph node Constipation Essential tremor Follow-up exam, 3-6 months since previous exam Wellness examination Encounter for screening colonoscopy Vasectomy evaluation Erectile dysfunction Gout Major depressive disorder in remission Morbid obesity Obstructive sleep apnea hypopnea, severe Low back pain Migraines Surgical History No pertinent past surgical history Family History Mother No problems noted. Father Mental health disorder Sister No problems noted. Other Substance use disorder Social History Housing: Apartment Alcohol intake: current Alcohol intake frequency: holidays/special occasions only Patient Tobacco Use Status: Never used Tobacco Tobacco use type: Cigarette e-Cigarette/Vaping Use: Never Used Second Hand Smoke Exposure: No service: No Current occupational status: unemployed Cognitive needs: No Hearing needs: No Vision needs: Yes Questionnaire PHQ-9 Over the last 2 weeks, how often have you been bothered by any of the following problems? 1. Little interest or pleasure in doing things: more than half the days 2. Feeling down, depressed, or hopeless: several days 3. Trouble falling or staying asleep, or sleeping too much: several days 4. Feeling tired or having little energy: several days 5. Poor appetite or overeating: several days 6. Feeling bad about yourself - or that you are a failure or have let yourself or your family down: not at all 7. Trouble concentrating on things, such as reading the newspaper or watching television: more than half the days 8. Moving or speaking so slowly that other people could have noticed. Or the opposite - being so fidgety or restless that you have been moving around a lot more than usual: not at all 9. Thoughts that you would be better off or of hurting yourself in some way: not at all Total score: 8 Depression Screening Interpretation: Negative Depression Screening Done: Yes 88515 - PHQ-9 Billing: Yes Source: Developed by Drs. Murali Hinkle, Yarely Estrada, Jaswant Sotelo and colleagues, with an educational erika from [employer]. Thrive Questionnaire Date Thrive assessed: 08/02/24 I am a: Patient What is your living situation today?: I have a steady place to live Within the past 12 months, did the food you bought not last and you didn't have the money to get more?: Never true Within the past 12 months, did you worry whether your food would run out before you got money to buy more?: Never true Do you have trouble paying for medicines?: No Do you have trouble getting transportation to medical appointments?: No Do you have trouble paying your heating and electricity bill?: No Do you have trouble taking care of your child, family member or friend?: No Do you have trouble with day-to-day activities such as bathing, preparing meals, shopping, managing finances, etc.?: No Are you currently unemployed and looking for a job?: Yes Are you interested in more education?: Yes Please select the resources that you would like help with: None Currently or been in a relationship where the following occur: No concerns reported THRIVE Score: 0 AUDIT C Alcohol Use Questionnaire (AUDIT-C) 1. How often do you have a drink containing alcohol?: Monthly or less 2. How many drinks containing alcohol do you have on a typical day when you are drinking?: 1 or 2 3. How often do you have six or more drinks on one occasion?: Never Total Score: 1 Score Reviewed/Action Taken: No LUIS-7 AMB Questionnaire LUIS-7 Date LUIS - 7 assessed: 08/02/24 Feeling nervous, anxious, or on edge: 2 = More than half the days Not being able to stop or control worryin = Several days Worrying too much about different things: 1 = Several days Trouble relaxin = More than half the days Being so restless that it is hard to sit still: 1 = Several days Becoming easily annoyed or irritable: 1 = Several days Feeling afraid as if something awful might happen: 1 = Several days Total LUIS-7 score (0-4 normal; 5-9 mild; 10-14 moderate; 15-21 severe): 9 Source: Developed by Drs. Murali Hinkle, Yarely Estrada, Jaswant Sotelo and colleagues, with an educational erika from [employer]. LUIS-7 Assessment Billing LUIS-7 Assessment Tool: LUIS-7 Assessment 80867 Physical exam (Primary Care) Vital Signs: Last Vital Signs Temp 96.9 F 08/02/24 11:43 Pulse 98 08/02/24 11:43 BP 138/84 08/02/24 11:43 Pulse Ox 100 08/02/24 11:43 Oxygen Delivery Method Room Air 08/02/24 11:43 Care Plan Goal for BP management: <130/90 at goal BMI result Body Mass Index 47.0 BMI Assessment/Plan discussion: High BMI High, discussed plan: lifestyle, weight reduction, dietary, physical activity and alcohol moderation Tobacco/Smoking Status: Tobacco use Status Tobacco use date assessed 08/02/24 08/02/24 11:55 Patient Tobacco Use Status Never used Tobacco 08/02/24 11:43 Tobacco use type Cigarette 08/02/24 11:43 e-Cigarette/Vaping Use Never Used 08/02/24 11:43 PHQ-9: PHQ-9 Score PHQ-9: Total score 8 08/02/24 11:54 Depression Screening Interpretation: Negative Thrive Assessment: Date of Thrive Assessment Date Thrive assessed 08/02/24 08/02/24 11:43 Currently or been in a relationship where the following occur: No concerns reported Coding Level of Care Code Est Pt Level 4 (74694) Complex EM visit Add On G2211 Diagnoses Enlarged lymph node R59.9 Left axillary pain M79.622 Chronic back pain M54.9; G89.29 Plantar fasciitis, left M72.2 Depression F32.A Follow-up exam, 3-6 months since previous exam Z09 Hyperlipidemia LDL goal <100 E78.5 Obesity, morbid, BMI 40.0-49.9 E66.01 Additional Codes LUIS-7 Assessment Billing - LUIS-7 Assessment Tool: LUIS-7 Assessment 16701 ([id number]) PHQ-9 - 80745 - PHQ-9 Billing: Yes ([id number]) Assessment & Plan Assessment & Plan (1) Enlarged lymph node: Code(s): R59.9 - Enlarged lymph nodes, unspecified Category: Medical Plan: Will order US of L Axillary. Will continue to monitor (2) Left axillary pain: Code(s): M79.622 - Pain in left upper arm Category: Medical Plan: Will order US of L Axillary. Will continue to monitor (3) Chronic back pain: Code(s): M54.9 - Dorsalgia, unspecified; G89.29 - Other chronic pain Category: Medical Plan: Will refer to PT, Ortho. Condition is chronic and stable. (4) Plantar fasciitis, left: Code(s): M72.2 - Plantar fascial fibromatosis Category: Medical Plan: Will refer to PT, Podiatry. Condition is chronic and stable. (5) Depression: Code(s): F32.A - Depression, unspecified Category: Medical Plan: Pt to continue Bupropion 450 mg daily. Will refer to therapist and psychiatrist. Condition is chronic and stable. (6) Follow-up exam, 3-6 months since previous exam: Code(s): Z09 - Encounter for follow-up examination after completed treatment for conditions other than malignant neoplasm Category: Medical (7) Hyperlipidemia LDL goal <100: Code(s): E78.5 - Hyperlipidemia, unspecified Category: Medical Plan: Patient be started on atorvastatin 10 mg at bedtime. Condition is chronic and stable continue to monitor. (8) Obesity, morbid, BMI 40.0-49.9: Code(s): E66.01 - Morbid (severe) obesity due to excess calories Category: Medical Plan: Patient has improved his diet and exercise regimen. Condition is chronic and stable. Plan Plan Patient was informed and verbally consented to the use of an ambient scribe for clinic note documentation during this visit. 1. Plantar Fasciitis Referral to podiatry and offer repeat physical therapy for persistent symptoms. 2. Suspected Lymphadenopathy I will arrange for an ultrasound to evaluate the right axillary region to determine the nature of any lymphadenopathy present. 3. Chronic Migraine Discuss triggers and intervention for episodes, providing guidance to seek care if conditions worsen. 4. Depression Continue current bupropion, refer to [facility], and initiate psychiatric evaluation to provide broader mental health support. 5. Drug induced constipation Continue current use of dietary supplements (Psyllium and MiraLAX) as GI-protective strategy. 6. Chronic Back Pain Refer to orthopedics to evaluate ongoing back pain and explore alternative management options. 7. Hyperlipidemia Initiate atorvastatin therapy to address elevated cholesterol. Monitor for any adverse effects, particularly muscle-related symptoms. Discussion Notes I discussed with the patient the plan for addressing his recurring axillary swelling through ultrasound imaging to clarify the cause and potential interventions. We talked about managing his hyperlipidemia with the initiation of atorvastatin therapy, outlining the importance of adherence and potential adverse events. Addressed musculoskeletal concerns by referring to orthopedics and podiatry, providing additional resources for chronic back pain and plantar fasciitis. I elaborated on the continuation of his depression management with bupropion while facilitating a re-referral to [facility] and psychiatry to ensure robust oversight of mental health. For constipation, I recommended his ongoing use of dietary supplements rather than Colace. Orders: Orders US extremity nonvascular Today M79.622 - Pain in left upper arm, R59.9 - Enlarged lymph nodes, unspecified PT Evaluation and Treatment Today G89.29 - Other chronic pain, M54.9 - Dorsalgia, unspecified, M72.2 - Plantar fascial fibromatosis Referrals Orthopedics Referral G89.29 - Other chronic pain, M54.9 - Dorsalgia, unspecified, M72.2 - Plantar fascial fibromatosis Podiatry Referral M72.2 - Plantar fascial fibromatosis Psychiatry Referral F32.A - Depression, unspecified Counseling Referral F32.A - Depression, unspecified, F41.9 - Anxiety disorder, unspecified Medications: New atorvastatin 10 mg PO BEDTIME 90 tabs 1RF hyperlipidemia Refilled bupropion HCl XL 300 mg PO QAM 90 tabs 1RF bupropion HCl XL 150 mg PO QAM 90 tabs 1RF Patient Instructions: Patient Instructions - Schedule an ultrasound for the right axillary region as discussed. - Start taking atorvastatin 10 mg at bedtime. Contact us if you experience muscle pain. - Keep monitoring blood pressure regularly. Report if it remains high. - Continue physical therapy exercises for plantar fasciitis and back pain. - Pursue podiatry and orthopedic evaluations as planned. - Follow up with [facility] and establish contact with a psychiatrist. - Maintain a diet high in fiber and continue using Psyllium and MiraLAX as needed for constipation. - Be attentive to changes in breast tissue, given your family history of breast cancer. Scribe Plan - Not visible on output: History of Present Illness The patient is a 43-year-old male presenting with suspected lymphadenopathy in the right axillary region. He reports a recurring bilateral swelling in this area, notable for its episodic enlargement and associated pain, although no breast lumps have been detected upon self-examination. The condition persists with a typical three-week to one-month interval between flare-ups, with no known mitigating circumstances. He denies any breast tenderness or breast lumps. In terms of hyperlipidemia, the patient's cholesterol levels have been a point of concern, warranting discussion regarding medication. The patient reports being advised regarding medication previously, yet has not been initiated on therapy until this visit. Additionally, the patient experiences persistent symptoms of plantar fasciitis and chronic back pain, despite prior completion of physical therapy. These symptoms continue to interfere with daily activities and warrant further management strategies. Review of Systems - Neurological: Reports intermittent migraine headaches. - Musculoskeletal: Denies additional swelling in areas beyond the axillary region. Physical Exam Appearance: Alert. Oriented X3. No acute distress. Head: Normal external exam. Normocephalic. Atraumatic. Eyes: Pupils are equal, round, and reactive to light. Extraocular movements intact. Conjunctiva and sclera normal. Eyelids normal. Ears: External auditory canal normal. Tympanic membranes normal. Throat: Pharynx normal. Uvula midline. Moist mucous membranes. Neck: Normal inspection. Neck supple. Full range of motion. No adenopathy. Thyroid Normal. No meningeal signs. No neck mass noted. Cardiovascular: Normal heart rate and rhythm. Heart sound normal. No murmurs noted. Pulses normal throughout. Blood pressure recorded at 138/84, slightly elevated but not concerning at this time. Respiratory: No respiratory distress. Painless inspiration. Breath sounds normal. No wheezes/rales/rhonchi noted. Chest nontender. No accessory muscle usage noted or decreased air movement noted. Abdomen: Soft and nontender. Bowel sounds normal in all 4 quadrants. No distention noted. No organomegaly noted. No visible injury noted. Back: No costovertebral angle tenderness. Full range of motion noted. Chronic back pain reported, referral to physical therapy and orthopedics made. Skin: Skin warm and dry. Normal skin color. Normal skin turgor. No rashes/lesions/lacerations noted. Extremities: No lower extremity edema. Extremities exhibit normal range of motion. Extremities nontender. Chronic plantar fasciitis in the left foot reported, referral to podiatry and physical therapy made. Neuro: Oriented X 3. No motor deficit. No sensory deficit. Reflexes normal. Results - Tests and Diagnostics: Previous chest X-ray was performed as part of initial assessment for axillary mass.
== END 2024-08-02 12:12 | disposition home or self-care (01) ==
LOC: HO.HMCH 11:32
PROVIDERS: PCP Internal Medicine; Visit Provider Physician Assistant Medical
DX: R59.9 Enlarged lymph nodes, unspecified (principal); M79.622 Pain in left upper arm; M54.9 Dorsalgia, unspecified; G89.29 Other chronic pain; M72.2 Plantar fascial fibromatosis; F32.A Depression, unspecified; Z09 Encounter for follow-up examination after completed treatment for conditions other than malignant neoplasm; E78.5 Hyperlipidemia, unspecified; E66.01 Morbid (severe) obesity due to excess calories

== ENCOUNTER → 2024-08-02 11:31 | Outpatient (BNVA) | payer OTHER, SELFPAY | PROVIDERS: PCP Internal Medicine; Visit Provider Physician Assistant Medical | DX: Z09 Encounter for follow-up examination after completed treatment for conditions other than malignant neoplasm (principal); R59.9 Enlarged lymph nodes, unspecified; M79.622 Pain in left upper arm; M54.9 Dorsalgia, unspecified; G89.29 Other chronic pain; M72.2 Plantar fascial fibromatosis; F32.A Depression, unspecified; E78.5 Hyperlipidemia, unspecified; E66.01 Morbid (severe) obesity due to excess calories | CPT/HCPCS: 96127; 99212 ==

== ENCOUNTER 2024-08-13 14:08 | Emergency (ER) | payer OTHER, SELFPAY ==
[2024-08-13 14:10] VITALS: BP 138/87; PULSE 120; RESP 16; TEMP 36.7; O2SAT 100; BMI 46.2
--- NOTE | 2024-08-13 14:16 | ED_ITS ---
HPI - General Adult General Chief complaint: General Medical Stated complaint: high bp Time Seen by Provider: 08/13/24 17:54 Source: patient Mode of arrival: ambulatory Limitations: no limitations History of Present Illness ED Provider: HPI narrative: Patient's history of depression anxiety complaining of elevated blood pressure seen by PCP who advised to decrease the salt and diagnose as borderline hypotension on arrival patient's blood pressure was 138/87 repeat blood pressure 133/83 patient anxious about the hypotension Related Data Home Medications ?Medication ?Instructions ?Recorded ?Confirmed docusate sodium 100 mg capsule 100 mg PO DAILY PRN constipation 07/25/24 08/17/24 (Colace) meloxicam 15 mg tablet 15 mg PO DAILY PRN 07/25/24 08/17/24 polyethylene glycol 3350 17 17 g PO DAILY PRN constipation 07/25/24 08/17/24 gram/dose oral powder (Miralax) tadalafil 5 mg tablet 5 mg PO DAILY 07/25/24 08/17/24 lisinopril 10 mg tablet 10 mg PO DAILY 08/17/24 08/17/24 Previous Rx's ?Medication ?Instructions ?Recorded colchicine 0.6 mg tablet 0.6 mg PO DAILY PRN Gout #14 tabs 04/19/24 guanfacine 1 mg tablet,extended 1 mg PO DAILY #30 tabs 04/19/24 release 24 hr atorvastatin 10 mg tablet 10 mg PO BEDTIME hyperlipidemia 08/02/24 #90 tabs bupropion HCl 150 mg 24 hr tablet, 150 mg PO QAM #90 tabs 08/02/24 extended release bupropion HCl 300 mg 24 hr tablet, 300 mg PO QAM #90 tabs 08/02/24 extended release cyclobenzaprine 10 mg tablet 10 mg PO Q8H #60 tabs 08/17/24 doxycycline hyclate 100 mg tablet 100 mg PO BID 14 days #28 tabs 08/17/24 metoprolol succinate 25 mg 25 mg PO DAILY #90 tabs 08/17/24 tablet,extended release 24 hr Allergies Allergy/AdvReac Type Severity Reaction Status Date / Time azithromycin AdvReac Intermediate stomach Verified 08/17/24 13:08 pain Review of Systems 2 Review of Systems: Yes all other systems are reviewed and are negative PMFSH Past Medical History Medical History Tick bite RBBB Sinus tachycardia Left axis deviation Obesity, morbid, BMI 40.0-49.9 Hyperlipidemia LDL goal <100 Depression Plantar fasciitis, left Chronic back pain Left axillary pain Enlarged lymph node Constipation Essential tremor Follow-up exam, 3-6 months since previous exam Wellness examination Encounter for screening colonoscopy Vasectomy evaluation Erectile dysfunction Gout Major depressive disorder in remission Morbid obesity Obstructive sleep apnea hypopnea, severe Low back pain Migraines Surgical History No pertinent past surgical history Family History Family History (Reviewed 08/18/24 @ 00: by Patrick Matamoros MD) Mother No problems noted. Father Mental health disorder Sister No problems noted. Other Substance use disorder Social History Social History Housing: Apartment Alcohol intake: current Alcohol intake frequency: holidays/special occasions only Patient Tobacco Use Status: Never used Tobacco Tobacco use type: Cigarette e-Cigarette/Vaping Use: Never Used Second Hand Smoke Exposure: No service: No Current occupational status: unemployed Cognitive needs: No Hearing needs: No Vision needs: Yes Physical Exam ED Vital Signs: Vital Signs - 24 hr 08/13/24 14:10 08/13/24 17:55 08/13/24 18:20 Temperature 98.0 F 97.9 F 97.9 F Pulse Rate 120 H 109 H 109 H Respiratory Rate 16 16 16 Blood Pressure 138/87 140/91 H 133/83 Pulse Oximetry 100 99 99 Oxygen Delivery Method Room Air Room Air Room Air BMI result Body Mass Index 46.2 Appearance: Alert. Oriented X3. No acute distress. Anxious Eyes: PERRLA, No Nystagmus ENT: Pharynx normal. Oral Mucosa moist Neck: Normal inspection. Neck supple. CVS: Normal heart rate and rhythm. Pulses normal. Respiratory: No respiratory distress. Equal air entry bilateral, no wheezing/rales/rhonchi Abdomen: Soft and nontender. Bowel sounds are present, no mass palpable, no CVA tenderness Skin: Skin warm and dry. Normal skin color. Normal skin turgor. Extremities: No lower extremity edema. No calf tenderness Neuro: Oriented X 3. No motor deficit. No sensory deficit.No cerebellar signs , cranial nerves II-XII intact Course Course Course Narrative: RME: 43 yold male presents to the ED concerns for elevated blood pressure. Patient states blood pressure was high at home and feeling anxious. Patient is tachycardic blood pressure normal. Patient states no chest pain. We will do EKG and labs. Medical Decision Making Medical Decision Making MDM Narrative: Patient is reassured about the blood pressure advised to continue to have decreased salt intake and follow with PCP Lab Data MDM Lab Attestation statement: I reviewed the patient's lab results. 08/13/24 14:29 08/13/24 14:29 Labs: Lab Results 08/13/24 Range/Units 14:29 WBC 9.0 (4.8-10.8) X10*3/uL RBC 5.36 (4.60-5.80) X10*6/uL Hgb 15.8 (14.0-18.0) g/dl Hct 44.4 (42.0-52.0) % MCV 82.8 (80.0-98.0) fL MCH 29.5 (27.0-33.0) pg MCHC 35.6 (31.0-36.0) g/dl RDW 13.1 (11.0-16.0) % Plt Count 284 (160-400) X10*3/uL MPV 9.8 (9.4-12.4) fL Immature Gran % (Auto) 0.3 (0.0-0.4) % Neut % (Auto) 60.1 (45-73) % Lymph % (Auto) 28.3 (20-40) % Emmet % (Auto) 10.2 (2-11) % Eos % (Auto) 0.2 (0-4) % Baso % (Auto) 0.9 (0-2) % Lymph # (Auto) 2.5 (1.2-4.9) X10*3/uL Emmet # (Auto) 0.9 (0.1-1.2) X10*3/uL Eos # (Auto) 0.0 (0.0-0.4) X10*3/uL Baso # (Auto) 0.1 (0.0-0.2) X10*3/uL Abs Immat Gran (auto) 0.03 (0.00-0.03) X10*3/uL Absolute Neuts (auto) 5.4 (2.0-8.3) x10*3/uL Absolute Nucleated RBC 0.000 (0.0-0.012) X10*3/uL Nucleated RBC % (auto) 0.0 (0.0-0.2) /100WBC Sodium 142 (135-145) mmol/L Potassium 3.5 (3.3-5.1) mmol/L Chloride 108 (96-108) mmol/L Carbon Dioxide 25 (22-29) mmol/L Anion Gap 13 (12-20) BUN 12 (9-16) mg/dL Creatinine 0.98 (0.5-1.4) mg/dL Estim Creat Clear Calc 154.3 Estimated GFR > 60 Random Glucose 85 (60-115) mg/dL Calcium 8.9 D (8.4-10.2) mg/dL Magnesium 2.3 (1.6-2.6) mg/dL Total Bilirubin 0.7 (0.0-1.0) mg/dL AST 25 (5-37) U/L ALT 23 (0-40) U/L Alkaline Phosphatase 93 (39-117) U/L Troponin I High Sens < 2.7 (<3.5-35.0) ng/L Total Protein 7.7 (6.5-8.0) g/dL Albumin 4.2 (3.5-5.0) g/dL Discharge Plan Discharge Clinical Impression: Hypertension Patient Disposition: Home, Self-Care Instructions: How to Take a Blood Pressure (ED), Hypertension (ED) Additional Instructions: Continue to decrease your salt and continue to do exercise to reduce weight Your blood pressure rechecked was 133/83 in left upper extremity Follow up with your PCP Prescriptions: No Action docusate sodium [Colace] 100 mg capsule 100 mg PO DAILY PRN (Reason: constipation) meloxicam 15 mg tablet 15 mg PO DAILY PRN polyethylene glycol 3350 [Miralax] 17 gram/dose powder 17 g PO DAILY PRN (Reason: constipation) tadalafil 5 mg tablet 5 mg PO DAILY Rx Instructions: USE [employer] COUPON ATTACHED NOT INSURANCE [id number] [facility] [id number] Member [id number] colchicine 0.6 mg tablet 0.6 mg PO DAILY PRN (Reason: Gout) Qty: 14 2RF guanfacine 1 mg tablet extended release 24 hr 1 mg PO DAILY Qty: 30 2RF atorvastatin 10 mg tablet 10 mg PO BEDTIME Qty: 90 1RF bupropion HCl 300 mg tablet extended release 24 hr 300 mg PO QAM Qty: 90 1RF bupropion HCl 150 mg tablet extended release 24 hr 150 mg PO QAM Qty: 90 1RF doxycycline hyclate 100 mg tablet 100 mg PO BID 14 Days Qty: 28 0RF lisinopril 10 mg tablet 10 mg PO DAILY metoprolol succinate 25 mg tablet extended release 24 hr 25 mg PO DAILY Qty: 90 1RF cyclobenzaprine 10 mg tablet 10 mg PO Q8H Qty: 60 0RF Interventions: ED Discharge Assessment Last Done: 08/13/24 18:20 Discharge Date/Time: 08/13/24 18:21 Print Language: Maori
--- NOTE | 2024-08-13 14:19 | ECG_ITS ---
Test Reason : TACHY Blood Pressure : */* mmHG Vent. Rate : 112 BPM Atrial Rate : 112 BPM P-R Int : 180 ms QRS Dur : 144 ms QT Int : 336 ms P-R-T Axes : 65 -38 27 degrees QTcB Int : 458 ms Sinus tachycardia Left axis deviation Right bundle branch block Abnormal ECG No previous ECGs available Referred By: Generic ED Physician Electronically Signed By: Marcel Lua
[2024-08-13 14:32] LABS: MANUAL DIFF FLAG NO
[2024-08-13 14:34] LABS: Basophils Absolute Auto 0.1 X10*3/uL (0.0-0.2); Basophils Percent Auto 0.9 % (0-2); Eosinophils Percent Auto 0.2 % (0-4); Hematocrit 44.4 % (42.0-52.0); Hemoglobin 15.8 g/dl (14.0-18.0); Imm Gran Abs Auto 0.03 X10*3/uL (0.00-0.03); Imm Gran Pct Auto 0.3 % (0.0-0.4); Lymphocytes Absolute Auto 2.5 X10*3/uL (1.2-4.9); Lymphocytes Percent Auto 28.3 % (20-40); Mean Corpuscular HGB Conc 35.6 g/dl (31.0-36.0); Mean Corpuscular Hemoglobin 29.5 pg (27.0-33.0); Mean Corpuscular Volume 82.8 fL (80.0-98.0); Mean Platelet Volume 9.8 fL (9.4-12.4); Monocytes Absolute Auto 0.9 X10*3/uL (0.1-1.2); Monocytes Percent Auto 10.2 % (2-11); Neutrophils Absolute Auto 5.4 x10*3/uL (2.0-8.3); Neutrophils Percent Auto 60.1 % (45-73); Platelet Count 284 X10*3/uL (160-400); Red Blood Count 5.36 X10*6/uL (4.60-5.80); Red Cell Distribution Width 13.1 % (11.0-16.0)
[2024-08-13 15:07] LABS: Alanine Aminotransferase 23 U/L (0-40); Albumin Level 4.2 g/dL (3.5-5.0); Anion Gap 13 (12-20); Aspartate Amino Transferase 25 U/L (5-37); Bilirubin Total 0.7 mg/dL (0.0-1.0); Blood Urea Nitrogen 12 mg/dL (9-16); Calcium 8.9 mg/dL (8.4-10.2); Carbon Dioxide 25 mmol/L (22-29); Chloride 108 mmol/L (96-108); Creatinine Clr Calc Pharmacy 154.3; Estimated Glomerular Filt Rate > 60; Glucose Random 85 mg/dL (60-115); Magnesium 2.3 mg/dL (1.6-2.6); Potassium 3.5 mmol/L (3.3-5.1); Sodium 142 mmol/L (135-145); Total Protein 7.7 g/dL (6.5-8.0)
[2024-08-13 15:15] LABS: Troponin-I High Sensitivity < 2.7 ng/L (<3.5-35.0)
[2024-08-13 17:55] VITALS: BP 140/91; PULSE 109; RESP 16; TEMP 36.6; O2SAT 99
[2024-08-13 18:20] VITALS: BP 133/83; PULSE 109; RESP 16; TEMP 36.6; O2SAT 99
[2024-08-13 20:18] LABS: Alkaline Phosphatase 93 U/L (39-117)
== END 2024-08-13 18:21 | disposition home or self-care (01) ==
PROVIDERS: Emergency Provider Internal Medicine; PCP Physician Assistant Medical
DX: I95.1 Orthostatic hypotension (principal); F41.9 Anxiety disorder, unspecified; R00.0 Tachycardia, unspecified; Z79.899 Other long term (current) drug therapy
CPT/HCPCS: 36415; 80053; 83735; 84484; 85025; 93005; 99283; 99284

== ENCOUNTER → 2024-08-13 14:19 | Outpatient (BNV) | payer OTHER, SELFPAY | PROVIDERS: Emergency Provider Internal Medicine; PCP Physician Assistant Medical; Visit Provider Internal Medicine Cardiovascular Disease | DX: I45.10 Unspecified right bundle-branch block (principal); R00.0 Tachycardia, unspecified | CPT/HCPCS: 93010 ==

== ENCOUNTER 2024-08-17 12:32 | Outpatient (AMB) | payer OTHER, SELFPAY ==
--- NOTE | 2024-08-17 12:47 | A.OFFPC_ITS ---
Vital Signs 08/17/24 12:48 Height 6 ft 2 in Weight 359 lb 4 oz BMI 46.1 BP 150/80 H Blood Pressure Location Rt brachial Position Sitting Pulse 112 H Pulse Source Pulse Oximeter Temp 97.3 F Temp Source Temporal Artery Scan Pulse Oximetry (%) 98 Oxygen Delivery Method Room Air Intake Visit Reasons: high B/P Intake Note: Patient is here to follow up on High Bp. Workforce Manager Required: No Water Restoration Technician: Not Required per policy Accompanied by: Self / Same As Patient Allergies azithromycin Adverse Reaction (Intermediate, Verified 08/17/24 13:08) stomach pain Medication List - Last Reconciled 08/17/24 by Mitzi Quijano PA-C atorvastatin 10 mg PO BEDTIME bupropion HCl XL 300 mg PO QAM bupropion HCl XL 150 mg PO QAM colchicine 0.6 mg PO DAILY PRN docusate sodium (Colace) 100 mg PO DAILY PRN doxycycline hyclate 100 mg PO BID 14 days guanfacine ER 1 mg PO DAILY lisinopril 10 mg PO DAILY meloxicam 15 mg PO DAILY PRN polyethylene glycol 3350 (Miralax) 17 grams PO DAILY PRN tadalafil 5 mg PO DAILY Tobacco use date assessed: 08/17/24 Dental Screening Dental Screen Date: 08/02/24 HPI HPI Comments History of Present Illness Details History of Present Illness The patient is a 43-year-old male presenting with elevated blood pressure and a recent tick bite. He reports fluctuations in blood pressure with a notable peak at 195/103 at home, leading to an ER visit where a normal reading of 120 was noted. This variability suggests possible measurement errors or episodic hypertension. Due to the patient having an elevated blood pressure he was started on lisinopril 10 mg prior to his appointment today. The patient also reports a tick bite with mild enlargement of the bite area, concerns over possible Lyme disease prompting consideration of doxycycline treatment. In tandem, back pain has been described, with spasms affecting the lower spine area, showing variance over days. An allergy history involves azithromycin, causing gastrointestinal upset. [facility] Medical History (Updated 08/17/24 @ 14:53 by Mitzi Quijano PA-C) Tick bite RBBB Sinus tachycardia Left axis deviation Obesity, morbid, BMI 40.0-49.9 Hyperlipidemia LDL goal <100 Depression Plantar fasciitis, left Chronic back pain Left axillary pain Enlarged lymph node Constipation Essential tremor Follow-up exam, 3-6 months since previous exam Wellness examination Encounter for screening colonoscopy Vasectomy evaluation Erectile dysfunction Gout Major depressive disorder in remission Morbid obesity Obstructive sleep apnea hypopnea, severe Low back pain Migraines Surgical History No pertinent past surgical history Family History Mother No problems noted. Father Mental health disorder Sister No problems noted. Other Substance use disorder Social History Housing: Apartment Alcohol intake: current Alcohol intake frequency: holidays/special occasions only Patient Tobacco Use Status: Never used Tobacco Tobacco use type: Cigarette e-Cigarette/Vaping Use: Never Used Second Hand Smoke Exposure: No service: No Current occupational status: unemployed Cognitive needs: No Hearing needs: No Vision needs: Yes Questionnaire Thrive Questionnaire Date Thrive assessed: 08/02/24 LUIS-7 AMB Questionnaire LUIS-7 Date LUIS - 7 assessed: 08/02/24 Source: Developed by Drs. Murali Hinkle, Yarely Estrada, Jaswant Sotelo and colleagues, with an educational erika from [employer]. Review of Systems Const Details: Review of Systems - Cardiovascular: Reports elevated blood pressure - Musculoskeletal: Reports lower back pain and spasms - Integumentary: Reports finding a tick bite - Gastrointestinal: Reports reaction to azithromycin causing diarrhea Physical exam (Primary Care) Vital Signs: Last Vital Signs Temp 97.3 F 08/17/24 12:48 Pulse 112 H 08/17/24 12:48 BP 150/80 H 08/17/24 12:48 Pulse Ox 98 08/17/24 12:48 Oxygen Delivery Method Room Air 08/17/24 12:48 Care Plan Goal for BP management: <130/90 patient to continue lisinopril 10mg which he did not take today. Patient will return in 1 month for blood pressure check. BMI result Body Mass Index 46.1 BMI Assessment/Plan discussion: High BMI High, discussed plan: lifestyle, weight reduction, dietary, physical activity and alcohol moderation Tobacco/Smoking Status: Tobacco use Status Tobacco use date assessed 08/17/24 08/17/24 12:54 Patient Tobacco Use Status Never used Tobacco 08/17/24 12:48 Tobacco use type Cigarette 08/17/24 12:48 e-Cigarette/Vaping Use Never Used 08/17/24 12:48 Thrive Assessment: Date of Thrive Assessment Date Thrive assessed 08/02/24 08/17/24 12:48 Const Other: Physical Exam Appearance: Alert. Oriented X3. No acute distress. Head: Normal external exam. Normocephalic. Atraumatic. Eyes: Pupils are equal, round, and reactive to light. Extraocular movements intact. Conjunctiva and sclera normal. Eyelids normal Throat: Pharynx normal. Uvula midline. Moist mucous membranes. Neck: Normal inspection. Neck supple. Full range of motion. Cardiovascular: Heart rate is fast. Sinus tachycardia with left axis deviation and right bundle branch block noted. Heart sound normal. No murmurs noted. Pulses normal throughout. Respiratory: No respiratory distress. Painless inspiration. Back: Full range of motion noted. Lower back pain with spasms noted, reacts to stretching. Skin: Skin warm and dry. Normal skin color. Normal skin turgor. Tick bite with enlarging marker noted to left back. No signs of acute infection. No additional rashes/lesions/lacerations noted. Extremities:Extremities exhibit normal range of motion. Extremities nontender. Neuro: Oriented X 3. No motor deficit. No sensory deficit. Reflexes normal. Results Reviewed Results Reviewed: - Labs: None discussed - Tests: EKG indicating sinus tachycardia with left axis deviation and right bundle branch block. Coding Level of Care Code Est Pt Level 3 (82875) Complex EM visit Add On G2211 Diagnoses Hypertension I10 Left axis deviation R94.31 Sinus tachycardia R00.0 RBBB I45.10 Tick bite W57.XXXA Chronic back pain M54.9; G89.29 Assessment & Plan Assessment & Plan (1) Hypertension: Code(s): I10 - Essential (primary) hypertension Category: Medical (2) Left axis deviation: Code(s): R94.31 - Abnormal electrocardiogram [ECG] [EKG] Category: Medical (3) Sinus tachycardia: Code(s): R00.0 - Tachycardia, unspecified Category: Medical (4) RBBB: Code(s): I45.10 - Unspecified right bundle-branch block Category: Medical (5) Tick bite: Code(s): W57.XXXA - Bitten or stung by nonvenomous insect and other nonvenomous arthropods, initial encounter Category: Medical (6) Chronic back pain: Code(s): M54.9 - Dorsalgia, unspecified; G89.29 - Other chronic pain Category: Medical Plan Plan Patient was informed and verbally consented to the use of an ambient scribe for clinic note documentation during this visit. 1. Sinus Tachycardia With Left [place] Deviation And Right Bundle Branch Block Arrange cardiology consultation, monitor heart function and rhythm under control. Patient will be started on metoprolol 25 mg extended release. Condition is new chronic and stable will continue to monitor 2. Essential Hypertension Continue lisinopril 10 mg daily, evaluating for effectiveness and possible dose adjustments. Initiate metoprolol 25 mg ER for heart rate control. Condition is new and stable will continue to monitor. 3. Allergy To Azithromycin Avoid medication and note for future reference. 4. Tick Bite Commence doxycycline to prevent Lyme disease, opting for a 14-21 day course based on exposure. Condition is new and stable continue to monitor. 5. Lower Back Pain Use Flexeril for muscle spasms; reassess if condition does not improve or worsens. Condition is chronic and stable continue to monitor. Discussion Notes I informed the patient of the diagnoses of essential hypertension, tick bite concerns, and findings on the recent EKG. The management plan includes lisinopril for blood pressure, with adjunctive therapy using metoprolol for tachycardia. The patient received information on the need for cardiology follow- up due to EKG abnormalities. We agreed on doxycycline for the tick bite. For mu sculoskeletal symptoms, Flexeril was provided. I advised watchfulness over possible side effects from medications and to return if symptoms exacerbate. Referral to cardiology was suggested for heart-related findings. Orders: Referrals Cardiology Referral I10 - Essential (primary) hypertension, I45.10 - Unspecified right bundle-branch block, R00.0 - Tachycardia, unspecified, R94.31 - Abnormal electrocardiogram [ECG] [EKG] Medications: New cyclobenzaprine 10 mg PO Q8H 60 tabs 0RF doxycycline hyclate 100 mg PO BID 28 tabs 0RF 14 days metoprolol succinate ER 25 mg PO DAILY 90 tabs 1RF Patient Instructions: Patient Instructions - Take lisinopril 10 mg once daily and monitor blood pressure. - Start metoprolol 25 mg extended release as directed. - Follow doxycycline regimen for 14-21 days as prescribed. - Use Flexeril as needed for back pain. - Schedule follow-up in one month for blood pressure check. - Arrange an appointment with cardiology following diagnostic findings. - Contact the office if symptoms worsen or if you experience any adverse effects.
[2024-08-17 12:48] VITALS: BP 150/80; PULSE 112; TEMP 36.3; O2SAT 98; BMI 46.1
== END 2024-08-17 13:19 | disposition home or self-care (01) ==
LOC: HO.HMCH 12:33
PROVIDERS: PCP Physician Assistant Medical; Visit Provider Physician Assistant Medical
DX: I10 Essential (primary) hypertension (principal); R94.31 Abnormal electrocardiogram [ECG] [EKG]; R00.0 Tachycardia, unspecified; I45.10 Unspecified right bundle-branch block; W57.XXXA Bitten or stung by nonvenomous insect and other nonvenomous arthropods, initial encounter; M54.9 Dorsalgia, unspecified; G89.29 Other chronic pain

== ENCOUNTER → 2024-08-17 12:32 | Outpatient (BNVA) | payer OTHER, SELFPAY | PROVIDERS: PCP Physician Assistant Medical; Visit Provider Physician Assistant Medical | DX: I10 Essential (primary) hypertension (principal); R94.31 Abnormal electrocardiogram [ECG] [EKG]; R00.0 Tachycardia, unspecified; I45.10 Unspecified right bundle-branch block; M54.9 Dorsalgia, unspecified; G89.29 Other chronic pain | CPT/HCPCS: 99212 ==

== ENCOUNTER 2024-08-23 12:44 | Outpatient (REF) | payer OTHER, SELFPAY ==
--- NOTE | ~2024-08-23 | US_ITS ---
EXAMINATION: ULTRASOUND EXTREMITY, NONVASCULAR . CLINICAL INFORMATION: Enlarged lymph nodes, unspecified. TECHNIQUE: Real-time ultrasound with a linear transducer using grayscale and color Doppler technique at the region of concern in the left axilla. COMPARISON: None FINDINGS: Prominent lymph nodes, the largest measures 6.3 cm in maximum dimension. No cystic lesions or fluid collections. US/US extremity nonvascular velásquez IMPRESSION: Lymphadenopathy, left axilla. Electronically signed by: Iban Rosen MD 08/23/2024 01:17 PM EDT
== END 2024-08-23 12:45 | disposition home or self-care (01) ==
LOC: HO.HMGCX 12:44
PROVIDERS: PCP Physician Assistant Medical; Visit Provider Physician Assistant Medical
DX: R59.9 Enlarged lymph nodes, unspecified (principal); M79.622 Pain in left upper arm
CPT/HCPCS: 76882

== ENCOUNTER → 2024-08-23 12:47 | Outpatient (BNV) | payer OTHER, SELFPAY | PROVIDERS: PCP Physician Assistant Medical; Visit Provider Radiology Diagnostic Radiology | DX: R59.0 Localized enlarged lymph nodes (principal) | CPT/HCPCS: 76882 ==

== ENCOUNTER → 2024-08-29 14:10 | Outpatient (BNV) | payer OTHER, SELFPAY | PROVIDERS: PCP Physician Assistant Medical; Referring Provider Physician Assistant Medical; Visit Provider Internal Medicine | DX: R59.0 Localized enlarged lymph nodes (principal) | CPT/HCPCS: 99203 ==

== ENCOUNTER 2024-09-14 17:07 | Emergency (ER) | payer OTHER, SELFPAY ==
--- NOTE | ~2024-09-14 | CT_ITS ---
CLINICAL HISTORY: neck pain rad R shoulder arm CT cervical spine without contrast Comparison: None Findings: No acute fracture. There is reversal of the cervical lordosis. Degenerative changes of the cervical spine with osteophytes. The soft tissue and lung apices are unremarkable. C1-C2: Unremarkable C2-C3: Unremarkable C3-C4: No spinal stenosis. The left neural foramina is patent. There is mild narrowing of the right neural foramina due to the hypertrophy of uncovertebral joint. C4-C5: Unremarkable C5-C6: Unremarkable C6-C7: Unremarkable C7-T1: Unremarkable IMPRESSION: 1. No acute findings. Mild degenerative changes of the cervical spine as above. There is mild narrowing of the right C3-C4 neural foramina. This document has been electronically signed by: Nabil Sanchez MD on 09/14/2024 18:34:45
--- NOTE | 2024-09-14 17:23 | ED.EXTPRO ---
HPI - Extremity Problem General Chief complaint: Extremity Injury, Upper Stated complaint: shoulder/neck pain Time Seen by Provider: 09/14/24 20:22 Source: patient Mode of arrival: ambulatory Limitations: no limitations History of Present Illness ED Provider: Dr. Shabbir Dwyer HPI Narrative: 43-year-old male with a history of ADD, migraines, depression, anxiety, gout, hyperlipidemia who presents emergency department for evaluation of 4 days of right-sided neck pain. Patient states the pain came on gradually. The pain has been constant but waxing and waning in intensity. He describes the pain is a muscle spasm like pain. Patient's pain is worse with movement of his head and neck. The pain does radiate down his right arm. He states that his right arm feels weak compared to his left arm. Patient denies any known injury. States the pain got worse last night and today at around 15:00 hours the pain was severe and was 9/10. Patient took ibuprofen, meloxicam and Flexeril with no relief his pain. The patient denied fever, chills, rhinorrhea, sore throat, had nausea, vomiting, diarrhea, loss of bowel or bladder control. Related Data Home Medications ?Medication ?Instructions ?Recorded ?Confirmed meloxicam 15 mg tablet 15 mg PO DAILY PRN 07/25/24 08/17/24 polyethylene glycol 3350 17 17 g PO DAILY PRN constipation 07/25/24 08/17/24 gram/dose oral powder (Miralax) tadalafil 5 mg tablet 5 mg PO DAILY 07/25/24 08/17/24 lisinopril 10 mg tablet 10 mg PO DAILY 08/17/24 08/17/24 Previous Rx's ?Medication ?Instructions ?Recorded colchicine 0.6 mg tablet 0.6 mg PO DAILY PRN Gout #14 tabs 04/19/24 guanfacine 1 mg tablet,extended 1 mg PO DAILY #30 tabs 04/19/24 release 24 hr atorvastatin 10 mg tablet 10 mg PO BEDTIME hyperlipidemia 08/02/24 #90 tabs bupropion HCl 150 mg 24 hr tablet, 150 mg PO QAM #90 tabs 08/02/24 extended release bupropion HCl 300 mg 24 hr tablet, 300 mg PO QAM #90 tabs 08/02/24 extended release cyclobenzaprine 10 mg tablet 10 mg PO Q8H #60 tabs 08/17/24 doxycycline hyclate 100 mg tablet 100 mg PO BID 14 days #28 tabs 08/17/24 metoprolol succinate 25 mg 25 mg PO DAILY #90 tabs 08/17/24 tablet,extended release 24 hr methocarbamol 750 mg tablet 1,500 mg (2 x 750 mg) PO TID PRN 09/14/24 Muscle spasm/pain 5 days #30 tabs morphine 15 mg immediate release 15 mg PO Q8H PRN pain #10 tabs 09/14/24 tablet Allergies Allergy/AdvReac Type Severity Reaction Status Date / Time azithromycin AdvReac Intermediate stomach Verified 09/14/24 17:27 pain Review of Systems Review of Systems: Yes all other systems are reviewed and are negative [facility] Past Medical History [facility] Narrative: Social history: Patient denies tobacco use. He rarely drinks alcohol. He denies drug use Medical History (Updated 09/15/24 @ 00:01 by Jose Potts) Lymphadenopathy, axillary Lymphedema Tick bite RBBB Sinus tachycardia Left axis deviation Obesity, morbid, BMI 40.0-49.9 Hyperlipidemia LDL goal <100 Depression Plantar fasciitis, left Chronic back pain Left axillary pain Enlarged lymph node Constipation Essential tremor Follow-up exam, 3-6 months since previous exam Wellness examination Encounter for screening colonoscopy Vasectomy evaluation Erectile dysfunction Gout Major depressive disorder in remission Morbid obesity Obstructive sleep apnea hypopnea, severe Low back pain Migraines Surgical History (Updated 08/29/24 @ 14:54 by Ronit Vicente MD) No pertinent past surgical history Family History Family History Mother No problems noted. Father Mental health disorder Sister No problems noted. Other Substance use disorder Social History Social History (Updated 08/29/24 @ 14:26 by Xi Kaur) Household Members: Significant Other and Friend(s) Housing: Apartment Alcohol intake: current Alcohol intake frequency: holidays/special occasions only Patient Tobacco Use Status: Never used Tobacco Smoked in Last 30 Days: No e-Cigarette/Vaping Use: Never Used Second Hand Smoke Exposure: No Use of substances other than those prescribed or required for medical reasons: No Advance Directives: No Advance Directives Information Provided: No service: No Current occupational status: unemployed Cognitive needs: No Hearing needs: No Vision needs: Yes Physical Exam Vital Signs: Vital Signs: Last Vital Signs Temp 97.9 F 09/14/24 23:39 Pulse 71 09/14/24 23:39 Resp 16 09/14/24 23:39 BP 97/54 L 09/14/24 23:39 Pulse Ox 97 09/14/24 23:39 O2 Del Method Room Air 09/14/24 23:39 BMI result Body Mass Index 46.2 Vital signs were normal. Exam: General: Awake, alert in no distress, weight 163.1 kg, elevated BMI 46.2 kg per m2 Head: Normocephalic, atraumatic EENT: PERRL, Lids normal, sclera normal, conjunctiva normal, nose normal , ears normal, throat without erythema or exudates Neck: Patient has tenderness and spasm of the right trapezius muscle. Patient has limited rotation to the right, he is unable to touch his right ear to his shoulder secondary to pain and spasm, he has no difficulty rotating his neck to the left are moving his left ear towards his shoulder. Lung: breath sounds symmetric, no wheezing, rales or rhonchi Chest: symmetric movement, nontender Heart: regular rate and rhythm, normal S1, S2 no murmurs or rubs Abdomen: soft, non-tender, nondistended, normal bowel sounds Back: no vertebral tenderness, no CVAT Extremities: no deformities, moves all extremities symmetrically Neuro: Awake, alert, oriented, normal speech Cranial nerves: Cranial nerves intact Strength: Patient has diminished strength in his right upper extremity compared to his left but he is able to hold both arms up against gravity with good resistance against downward pressure Psych: Pleasant, cooperative Course Course Course Narrative: This is an RME performed by Coty De Leon CNP: Additional HPI, ROS, PE not included below will be deferred to primary provider. patient is a 43-year-old male who presents emergency department for evaluation of right-sided shoulder neck pain radiating down into the R arm and R anterior chest with onset of symptoms 3 days ago. Reports abrupt onset of worsening symptoms about 1 hour prior to arrival. denies any precipitating injury, dizziness, nausea, headache. took meloxicam and Flexeril without relief. PE: appears significantly uncomfortable, decreased AROM to arm plan: CT cervical spine, EKG, labs Medications Administered Discontinued Medications Generic Name Dose Route Start Last Admin Trade Name Freq PRN Reason Stop Dose Admin Cyclobenzaprine HCl 10 mg 09/14/24 20:43 09/14/24 20:54 Cyclobenzaprine Hcl 10 Mg Tablet PO 09/14/24 20:44 10 mg ONCE ONE Administration Ketorolac Tromethamine 30 mg 09/14/24 20:43 09/14/24 20:50 Ketorolac Tromethamine 15 Mg/Ml Vial IVPUSH 09/14/24 20:44 30 mg ONCE STA Administration Morphine Sulfate 4 mg 09/14/24 20:43 09/14/24 20:50 Morphine Sulfate 4 Mg/Ml Cartridge IVPUSH 09/14/24 20:44 4 mg ONCE STA Administration Protocol Morphine Sulfate 4 mg 09/14/24 21:00 09/14/24 22:21 Morphine Sulfate 4 Mg/Ml Cartridge IVPUSH 4 mg Q20M PRN Administration Pain, Moderate(Pain Scale 4-6) Protocol Medical Decision Making Medical Decision Making MDM Narrative: 43-year-old male with a history of ADD, migraines, depression, anxiety, gout, hyperlipidemia who presents emergency department for evaluation of 4 days of right-sided neck pain. Patient states the pain came on gradually. The pain has been constant but waxing and waning in intensity. He describes the pain is a muscle spasm like pain. Patient's pain is worse with movement of his head and neck. The pain does radiate down his right arm. He states that his right arm feels weak compared to his left arm. Patient denies any known injury. States the pain got worse last night and today at around 15:00 hours the pain was severe and was 9/10. Patient took ibuprofen, meloxicam and Flexeril with no relief his pain. Review of systems was negative. Vital signs were normal. Physical examination did reveal tenderness and spasm of his right trapezius muscle with limited range of motion, mild right upper extremity weakness but otherwise neurologic exam was normal. Differential diagnosis: ?Includes but is not limited to myocardial infarction, myocardial ischemia, cervical disc disease, degenerative disc disease, degenerative joint disease, muscle strain, muscle spasm infectious etiology, anemia, electrolyte abnormalities Course: 20:50 My interpretation patient's laboratory evaluation is as follows: CBC was normal. CMP was normal except for slight elevation of glucose of 138. Troponin was below detectable limits. CT of the cervical spine mild degenerative joint disease with the most significant area being left neuroforaminal narrowing C3-C4 which is the opposite side of the patient's neck pain. Patient's 12 EKG was unremarkable. Patient's presentation and physical exam findings are consistent with a right trapezius musculoskeletal strain/spasm with inflammation causing radicular pain down his right arm. Patient's weakness is most likely related to his pain. I did discuss this with the patient. I ordered morphine 4 mg IV, Toradol 30 mg IV and Flexeril 10 mg orally. Patient was given ice packs to apply to his right trapezius muscle to help reduce the inflammation and pain. 23:29 the patient was given morphine 4 mg IV x2 more doses. At the time of discharge his pain was 5 out 10. The patient was able to ambulate without any difficulty. TheHe was given prescriptions for Robaxin 1500 mg q.12 hours p.r.n. pain and spasm and morphine 15 mg Q 6 hours as needed for pain. He was also advised to take Tylenol 1000 mg every 6 hours as needed for pain is well. He is advised to apply ice to his right trapezius musclefor 15 minutes 4 to 6 times a day for the next 2-3 days.Patient was given printed and verbal instructions and discharged home. Admission/Observation Consideration of admission/observation: Escalation of care including admission/observation considered (Yes) Lab Data MDM Lab Attestation statement: I reviewed the patient's lab results. 09/14/24 17:50 09/14/24 17:50 Labs: Lab Results 09/14/24 Range/Units 17:50 WBC 8.4 (4.8-10.8) X10*3/uL RBC 5.26 (4.60-5.80) X10*6/uL Hgb 15.4 (14.0-18.0) g/dl Hct 44.4 (42.0-52.0) % MCV 84.4 (80.0-98.0) fL MCH 29.3 (27.0-33.0) pg MCHC 34.7 (31.0-36.0) g/dl RDW 12.9 (11.0-16.0) % Plt Count 248 (160-400) X10*3/uL MPV 10.6 (9.4-12.4) fL Immature Gran % (Auto) 0.4 (0.0-0.4) % Neut % (Auto) 64.2 (45-73) % Lymph % (Auto) 27.1 (20-40) % [place] % (Auto) 7.2 (2-11) % Eos % (Auto) 0.1 (0-4) % Baso % (Auto) 1.0 (0-2) % Lymph # (Auto) 2.3 (1.2-4.9) X10*3/uL [place] # (Auto) 0.6 (0.1-1.2) X10*3/uL Eos # (Auto) 0.0 (0.0-0.4) X10*3/uL Baso # (Auto) 0.1 (0.0-0.2) X10*3/uL Abs Immat Gran (auto) 0.03 (0.00-0.03) X10*3/uL Absolute Neuts (auto) 5.4 (2.0-8.3) x10*3/uL Absolute Nucleated RBC 0.000 (0.0-0.012) X10*3/uL Nucleated RBC % (auto) 0.0 (0.0-0.2) /100WBC Sodium 139 (135-145) mmol/L Potassium 3.8 (3.3-5.1) mmol/L Chloride 106 (96-108) mmol/L Carbon Dioxide 23 (22-29) mmol/L Anion Gap 14 (12-20) BUN 12 (9-16) mg/dL Creatinine 0.91 (0.5-1.4) mg/dL Estim Creat Clear Calc 166.1 Estimated GFR > 60 Random Glucose 138 H (60-115) mg/dL Calcium 9.2 (8.4-10.2) mg/dL Magnesium 2.1 (1.6-2.6) mg/dL Total Bilirubin 0.7 (0.0-1.0) mg/dL AST 25 (5-37) U/L ALT 20 (0-40) U/L Alkaline Phosphatase 92 (39-117) U/L Troponin I High Sens < 2.7 (<3.5-35.0) ng/L Total Protein 7.4 (6.5-8.0) g/dL Albumin 4.1 (3.5-5.0) g/dL Lipase 23 (8-78) U/L Independent Interpretation I performed an independent interpretation of an: EKG Interpretation: My independent interpretation the patient's 12 EKG done on 09/14/2024 at 17:40 hours is as follows: Normal sinus rhythm rate of 94, normal DE interval, prolonged QRS duration of 138 milliseconds, prolonged QTC of 477 milliseconds, right bundle-branch block, no ST segment elevation, no ST segment depression, no significant T-wave abnormalities, when compared to an EKG dated 08/13/2024 at 14:21 hours there is no significant change. Radiology Impression Discussion of test interpretation with radiology: I have reviewed the radiologist's reading. Radiologist Impression: CT cervical spine without contrast Comparison: None Findings: No acute fracture. There is reversal of the cervical lordosis. Degenerative changes of the cervical spine with osteophytes. The soft tissue and lung apices are unremarkable. C1-C2: Unremarkable C2-C3: Unremarkable C3-C4: No spinal stenosis. The left neural foramina is patent. There is mild narrowing of the right neural foramina due to the hypertrophy of uncovertebral joint. C4-C5: Unremarkable C5-C6: Unremarkable C6-C7: Unremarkable C7-T1: Unremarkable IMPRESSION: 1. No acute findings. Mild degenerative changes of the cervical spine as above. There is mild narrowing of the right C3-C4 neural foramina. This document has been electronically signed by: Nabil Sanchez MD on 09/14/2024 18:34:45 Independent Historian Clinical information obtained from an independent historian. History obtained from or confirmed by: Friend Prescription Management I considered prescription management with: Pain Medication (Morphine) and Other (Anti muscle spasm: Robaxin) Chronic Conditions Patient?s care impacted by: Other (Hyperlipidemia) Discharge Plan Discharge Clinical Impression: Spasm of right trapezius muscle, Trapezius muscle strain Patient Disposition: Home, Self-Care Instructions: Cervical Sprain (ED) Additional Instructions: Your blood work was unremarkable. Your EKG revealed a right bundle-branch block but this was unchanged from your previous EKG in his not related to your neck pain. The CT of your cervical spine did not reveal a finding that explains your neck pain. You do have mild degenerative joint disease. Stop taking Flexeril. Take Robaxin Take ibuprofen 200 mg pills, 2 pills every 6 hours as needed for pain. Take Tylenol (acetaminophen) 2 pills every 6 hours as needed for pain. For pain not relieved by ibuprofen or Tylenol take morphine 15 mg pills, 1 pill every 6 hours as needed for pain. This medication will make you sleepy, do not drive or work while taking this medication. Morphine is a narcotic medication and can be addicting. If you are concerned about addiction you can ask the pharmacist for less pills or do not get this prescription filled. Apply ice for 15 minutes 4 to 6 times a day to the right side of your neck, this will reduce the inflammation and spasm of your neck and should help with your pain. Do this for at least 2-3 days. Continue taking your other medications as prescribed by your providers. Follow-up with your doctor in 2 days. Please return to the emergency department if your symptoms get worse or if you develop any symptoms that are concerning to you. Prescriptions: New morphine 15 mg tablet 15 mg PO Q8H PRN (Reason: pain) Qty: 10 0RF Rx Instructions: Partial Fill upon patient request. methocarbamol 750 mg tablet 1,500 mg PO TID PRN (Reason: Muscle spasm/pain) 5 Days Qty: 30 0RF No Action meloxicam 15 mg tablet 15 mg PO DAILY PRN polyethylene glycol 3350 [Miralax] 17 gram/dose powder 17 g PO DAILY PRN (Reason: constipation) tadalafil 5 mg tablet 5 mg PO DAILY Rx Instructions: USE [employer] ATTACHED NOT INSURANCE [id number] [facility] [id number] Member [id number] colchicine 0.6 mg tablet 0.6 mg PO DAILY PRN (Reason: Gout) Qty: 14 2RF guanfacine 1 mg tablet extended release 24 hr 1 mg PO DAILY Qty: 30 2RF atorvastatin 10 mg tablet 10 mg PO BEDTIME Qty: 90 1RF bupropion HCl 300 mg tablet extended release 24 hr 300 mg PO QAM Qty: 90 1RF bupropion HCl 150 mg tablet extended release 24 hr 150 mg PO QAM Qty: 90 1RF doxycycline hyclate 100 mg tablet 100 mg PO BID 14 Days Qty: 28 0RF lisinopril 10 mg tablet 10 mg PO DAILY metoprolol succinate 25 mg tablet extended release 24 hr 25 mg PO DAILY Qty: 90 1RF cyclobenzaprine 10 mg tablet 10 mg PO Q8H Qty: 60 0RF Interventions: ED Discharge Assessment Last Done: 09/14/24 23:39 Discharge Date/Time: 09/14/24 23:40 Print Language: Tongan
[2024-09-14 17:24] VITALS: BP 146/81; PULSE 96; RESP 18; TEMP 36.3; O2SAT 98; BMI 46.2
--- NOTE | 2024-09-14 17:27 | ECG_ITS ---
Test Reason : neck and chest pain Blood Pressure : */* mmHG Vent. Rate : 94 BPM Atrial Rate : 94 BPM P-R Int : 184 ms QRS Dur : 138 ms QT Int : 382 ms P-R-T Axes : 62 -17 12 degrees QTcB Int : 477 ms Normal sinus rhythm Right bundle branch block Abnormal ECG When compared with ECG of 13-Aug-2024 14:21, No significant change was found Referred By: Kinaz De Leon Electronically Signed By: NAS WARNER
[2024-09-14 17:55] LABS: MANUAL DIFF FLAG NO
[2024-09-14 17:59] LABS: Basophils Absolute Auto 0.1 X10*3/uL (0.0-0.2); Eosinophils Percent Auto 0.1 % (0-4); Hematocrit 44.4 % (42.0-52.0); Hemoglobin 15.4 g/dl (14.0-18.0); Imm Gran Abs Auto 0.03 X10*3/uL (0.00-0.03); Imm Gran Pct Auto 0.4 % (0.0-0.4); Lymphocytes Absolute Auto 2.3 X10*3/uL (1.2-4.9); Lymphocytes Percent Auto 27.1 % (20-40); Mean Corpuscular HGB Conc 34.7 g/dl (31.0-36.0); Mean Corpuscular Hemoglobin 29.3 pg (27.0-33.0); Mean Corpuscular Volume 84.4 fL (80.0-98.0); Mean Platelet Volume 10.6 fL (9.4-12.4); Monocytes Absolute Auto 0.6 X10*3/uL (0.1-1.2); Monocytes Percent Auto 7.2 % (2-11); Neutrophils Absolute Auto 5.4 x10*3/uL (2.0-8.3); Neutrophils Percent Auto 64.2 % (45-73); Platelet Count 248 X10*3/uL (160-400); Red Blood Count 5.26 X10*6/uL (4.60-5.80); Red Cell Distribution Width 12.9 % (11.0-16.0); White Blood Count 8.4 X10*3/uL (4.8-10.8)
[2024-09-14 18:30] LABS: Troponin-I High Sensitivity < 2.7 ng/L (<3.5-35.0)
[2024-09-14 18:33] LABS: Alanine Aminotransferase 20 U/L (0-40); Albumin Level 4.1 g/dL (3.5-5.0); Anion Gap 14 (12-20); Aspartate Amino Transferase 25 U/L (5-37); Bilirubin Total 0.7 mg/dL (0.0-1.0); Blood Urea Nitrogen 12 mg/dL (9-16); Calcium 9.2 mg/dL (8.4-10.2); Carbon Dioxide 23 mmol/L (22-29); Chloride 106 mmol/L (96-108); Creatinine Clr Calc Pharmacy 166.1; Estimated Glomerular Filt Rate > 60; Glucose Random 138 mg/dL (60-115); Lipase 23 U/L (8-78); Magnesium 2.1 mg/dL (1.6-2.6); Potassium 3.8 mmol/L (3.3-5.1); Sodium 139 mmol/L (135-145); Total Protein 7.4 g/dL (6.5-8.0)
[2024-09-14 18:40] LABS: Alkaline Phosphatase 92 U/L (39-117)
[2024-09-14 20:19] VITALS: BP 100/61; PULSE 92; RESP 20; TEMP 36.6; O2SAT 98
--- NOTE | 2024-09-14 20:32 | PC.NURSE ---
Pt sitting up on stretcher, c/o neck pain since Tuesday that got worse today. pt states he has tried tylenol, meloxicam and ibuprofen without relief. [place]bell within reach. Awaiting ED provider.
[2024-09-14 20:50] VITALS: RESP 18
[2024-09-14] MEDS: Morphine Sulfate 4 MG/ML CARTRIDGE IVPUSH ×3 (20:50→22:21)
[2024-09-14] MEDS: Ketorolac Tromethamine 15 MG/ML VIAL 30 MG IVPUSH (20:50)
[2024-09-14] MEDS: Cyclobenzaprine HCl 10 MG TABLET PO (20:54)
[2024-09-14 23:19] VITALS: BP 97/54; PULSE 71; RESP 16; TEMP 36.6; O2SAT 97
[2024-09-14 23:39] VITALS: BP 97/54; PULSE 71; RESP 16; TEMP 36.6; O2SAT 97
== END 2024-09-14 23:40 | disposition home or self-care (01) ==
PROVIDERS: Nurse Practitioner Family; Emergency Provider Emergency Medicine Emergency Medical Services; PCP Physician Assistant Medical
DX: M62.838 Other muscle spasm (principal); S16.1XXA Strain of muscle, fascia and tendon at neck level, initial encounter; X58.XXXA Exposure to other specified factors, initial encounter; M54.2 Cervicalgia; E78.5 Hyperlipidemia, unspecified; Y93.9 Activity, unspecified; Y92.9 Unspecified place or not applicable; Y99.9 Unspecified external cause status
CPT/HCPCS: 36415; 72125; 80053; 83690; 83735; 84484; 85025; 93005; 96374; 96375; 96376; 99284; 99285; J1885; J2270

== ENCOUNTER → 2024-09-14 17:27 | Outpatient (BNV) | payer OTHER, SELFPAY | PROVIDERS: PCP Physician Assistant Medical; Visit Provider Nuclear Medicine | DX: M54.2 Cervicalgia (principal) | CPT/HCPCS: 72125 ==

== ENCOUNTER → 2024-09-14 17:27 | Outpatient (BNV) | payer OTHER, SELFPAY | PROVIDERS: Emergency Provider Emergency Medicine Emergency Medical Services; PCP Physician Assistant Medical; Visit Provider Internal Medicine | DX: R07.9 Chest pain, unspecified (principal); M54.2 Cervicalgia; I45.10 Unspecified right bundle-branch block; R94.31 Abnormal electrocardiogram [ECG] [EKG] | CPT/HCPCS: 93010 ==

== ENCOUNTER 2024-09-20 12:56 | Outpatient (AMB) | payer OTHER, SELFPAY ==
--- NOTE | 2024-09-20 13:06 | MHC.PC.OV ---
Vital Signs 09/20/24 13:07 Height 6 ft 2 in Weight 358 lb 8 oz BMI 46.0 BP 122/78 Blood Pressure Location Lt brachial Position Sitting Pulse 82 Pulse Source Pulse Oximeter Pulse Oximetry (%) 98 Oxygen Delivery Method Room Air Intake Visit Reasons: 1mth f/u Emergency Medicine Required: No Accompanied by: Self / Same As Patient Allergies azithromycin Adverse Reaction (Intermediate, Verified 09/20/24 13:21) stomach pain Medication List - Last Reconciled 09/20/24 by Mitzi Quijano PA-C atorvastatin 10 mg PO BEDTIME bupropion HCl XL 300 mg PO QAM bupropion HCl XL 150 mg PO QAM colchicine 0.6 mg PO DAILY PRN guanfacine ER 1 mg PO DAILY lisinopril 10 mg PO DAILY meloxicam 15 mg PO DAILY PRN methocarbamol 1,500 mg (2 x 750 mg) PO TID PRN 5 days metoprolol succinate ER 25 mg PO DAILY morphine 15 mg PO Q8H PRN polyethylene glycol 3350 (Miralax) 17 grams PO DAILY PRN tadalafil 5 mg PO DAILY Tobacco use date assessed: 09/20/24 Dental Screening Dental Screen Date: 09/20/24 Did you have a dental visit in the last 12 months?: No Did you have a dental problem in the last 6 months where you did not have access to dental care?: No Was dental information given to patient?: No HPI 1mth f/u HPI Details The patient is a 43-year-old male presenting with neck and shoulder pain follow-up. The patient reports persistent neck pain with radicular symptoms affecting the right arm, which began a few days prior to a Tuesday evening when it escalated significantly. He describes limitations in arm mobility and persistent nerve pain. After a visit to a facility, he was administered morphine and changed muscle relaxers which afforded partial, temporary relief. A CT scan illustrated degenerative cervical spine changes with radicular involvement, diagnosed as musculoskeletal strain and spasm. Concurrent shoulder pain was experienced, sparking further evaluation to exclude cardiac incidences, with a normal EKG outcome. Additionally, the patient describes significant challenges with anxiety, exacerbated by disruption to mental health services due to previous logistical challenges. Current medications for cholesterol were reviewed with recent lab results, while blood pressure monitoring was variable, partly attributed to prescribed muscle relaxants. The patient experiences episodic axillary lymphadenopathy, previously assessed by specialists, necessitating a potential referral to immunology with no current enlargement observed. Social History - Challenges with mental health service engagement impacting anxiety management. - No current engagement in heavy lifting or identifiable physical triggers attributed to neck/shoulder condition. [facility] Medical History (Updated 09/20/24 @ 13:56 by Mitzi Quijano PA-C) Hypercholesteremia Anxiety Cervical radiculopathy Right shoulder pain Neck pain Lymphadenopathy, axillary Lymphedema Tick bite RBBB Sinus tachycardia Left axis deviation Obesity, morbid, BMI 40.0-49.9 Hyperlipidemia LDL goal <100 Depression Plantar fasciitis, left Chronic back pain Left axillary pain Enlarged lymph node Constipation Essential tremor Follow-up exam, 3-6 months since previous exam Wellness examination Encounter for screening colonoscopy Vasectomy evaluation Erectile dysfunction Gout Major depressive disorder in remission Morbid obesity Obstructive sleep apnea hypopnea, severe Low back pain Migraines Surgical History No pertinent past surgical history Family History Mother No problems noted. Father Mental health disorder Sister No problems noted. Other Substance use disorder Social History Household Members: Significant Other and Friend(s) Housing: Apartment Alcohol intake: current Alcohol intake frequency: holidays/special occasions only Patient Tobacco Use Status: Never used Tobacco e-Cigarette/Vaping Use: Never Used Second Hand Smoke Exposure: No service: No Current occupational status: unemployed Cognitive needs: No Hearing needs: No Vision needs: Yes Questionnaire PHQ-9 Over the last 2 weeks, how often have you been bothered by any of the following problems? 1. Little interest or pleasure in doing things: not at all 2. Feeling down, depressed, or hopeless: not at all 3. Trouble falling or staying asleep, or sleeping too much: more than half the days 4. Feeling tired or having little energy: several days 5. Poor appetite or overeating: not at all 6. Feeling bad about yourself - or that you are a failure or have let yourself or your family down: not at all 7. Trouble concentrating on things, such as reading the newspaper or watching television: not at all 8. Moving or speaking so slowly that other people could have noticed. Or the opposite - being so fidgety or restless that you have been moving around a lot more than usual: not at all 9. Thoughts that you would be better off or of hurting yourself in some way: not at all Total score: 3 Depression Screening Interpretation: Positive Depression Screening Follow-up: Existing condition, In treatment and Community Mental Health Worker F/U Depression Screening Done: Yes 91564 - PHQ-9 Billing: Yes Source: Developed by Drs. Murali Hinkle, Yarely Estrada, Jaswant Sotelo and colleagues, with an educational erika from [employer]. Thrive Questionnaire Date Thrive assessed: 09/20/24 I am a: Patient What is your living situation today?: I have a steady place to live Within the past 12 months, did the food you bought not last and you didn't have the money to get more?: Never true Within the past 12 months, did you worry whether your food would run out before you got money to buy more?: Never true Do you have trouble paying for medicines?: No Do you have trouble getting transportation to medical appointments?: No Do you have trouble paying your heating and electricity bill?: No Do you have trouble taking care of your child, family member or friend?: No Do you have trouble with day-to-day activities such as bathing, preparing meals, shopping, managing finances, etc.?: No Are you currently unemployed and looking for a job?: Yes Are you interested in more education?: Yes Please select the resources that you would like help with: None Currently or been in a relationship where the following occur: No concerns reported THRIVE Score: 0 AUDIT C Alcohol Use Questionnaire (AUDIT-C) 1. How often do you have a drink containing alcohol?: Monthly or less 2. How many drinks containing alcohol do you have on a typical day when you are drinking?: 1 or 2 3. How often do you have six or more drinks on one occasion?: Never Total Score: 1 Score Reviewed/Action Taken: No LUIS-7 AMB Questionnaire LUIS-7 Date LUIS - 7 assessed: 09/20/24 Feeling nervous, anxious, or on edge: 0 = Not at all Not being able to stop or control worryin = Not at all Worrying too much about different things: 0 = Not at all Trouble relaxin = Several days Being so restless that it is hard to sit still: 1 = Several days Becoming easily annoyed or irritable: 1 = Several days Feeling afraid as if something awful might happen: 0 = Not at all Total LUIS-7 score (0-4 normal; 5-9 mild; 10-14 moderate; 15-21 severe): 3 Source: Developed by Drs. Murali Hinkle, Yarely Estrada, Jaswant Sotelo and colleagues, with an educational erika from [employer]. LUIS-7 Assessment Billing LUIS-7 Assessment Tool: LUIS-7 Assessment 42299 Review of Systems Const Details: - Musculoskeletal: Reports neck pain and right shoulder pain with radicular symptoms into the right arm, with numbness and heat sensation in fingers. - Cardiovascular: Denies current chest pain; past EKG normal. - Neurological: Reports nerve pain in left arm, numbness in fingers. - Psychiatric: Reports difficulties in anxiety management and previous poor engagement with mental health resources. Physical exam (Primary Care) Vital Signs: Last Vital Signs Pulse 82 09/20/24 13:07 BP 122/78 09/20/24 13:07 Pulse Ox 98 09/20/24 13:07 Oxygen Delivery Method Room Air 09/20/24 13:07 Care Plan Goal for BP management: <130/90 at Goal BMI result Body Mass Index 46.0 BMI Assessment/Plan discussion: High BMI High, discussed plan: lifestyle, weight reduction, dietary, physical activity and alcohol moderation Tobacco/Smoking Status: Tobacco use Status Tobacco use date assessed 09/20/24 09/20/24 13:13 Patient Tobacco Use Status Never used Tobacco 09/20/24 13:13 Tobacco use type 08/29/24 14:26 e-Cigarette/Vaping Use Never Used 09/20/24 13:13 PHQ-9: PHQ-9 Score PHQ-9: Total score 3 09/20/24 13:13 Depression Screening Interpretation: Positive Depression Screening Follow-up: Existing condition, In treatment and Community Mental Health Worker F/U Thrive Assessment: Date of Thrive Assessment Date Thrive assessed 09/20/24 09/20/24 13:13 Currently or been in a relationship where the following occur: No concerns reported Const Other: Appearance: Alert. Oriented X3. No acute distress. Head: Normal external exam. Normocephalic. Atraumatic. Eyes: Pupils are equal, round, and reactive to light. Extraocular movements intact. Conjunctiva and sclera normal. Eyelids normal. Ears: External auditory canal normal. Tympanic membranes normal. Neck: Normal inspection. Neck supple. Full range of motion. Cardiovascular: Normal heart rate and rhythm. Respiratory: No respiratory distress. Painless inspiration. Back: Full range of motion noted. Chronic back pain noted. Skin: Skin warm and dry. Normal skin color. Normal skin turgor. Poison sandrita rash noted on the arm. No signs of infection. No additional rashes/lesions/lacerations noted. Extremities: Limited range of motion to right shoulder/AC joint due to pain. No obvious swelling or joint effusion. No upper extremity edema noted. No signs of trauma or signs of infection noted. No rashes are noted. Otherwise all other extremities exhibit normal range of motion. Results Reviewed Results Reviewed: - Imaging: CT of neck showed degenerative changes, left neural foraminal narrowing at C3-C4. - Electrocardiogram: Normal results. - Labs: Recent blood work with slightly elevated glucose but not properly fasting. Coding Level of Care Code Est Pt Level 4 (88786) Complex EM visit Add On G2211 Diagnoses Lymphadenopathy, axillary R59.0 Cervical radiculopathy M54.12 Chronic back pain M54.9; G89.29 Anxiety F41.9 Hypertension I10 Hypercholesteremia E78.00 Right shoulder pain M25.511 Additional Codes PHQ-9 - 12429 - PHQ-9 Billing: Yes ([id number]) LUIS-7 Assessment Billing - LUIS-7 Assessment Tool: LUIS-7 Assessment 25909 ([id number]) Assessment & Plan Assessment & Plan (1) Lymphadenopathy, axillary: Code(s): R59.0 - Localized enlarged lymph nodes Category: Medical Plan: Referred to allergy/immunology for further assessment of recurrent lymphadenopathy. Condition is not present at this time. Will continue to monitor for reoccurrence. (2) Cervical radiculopathy: Code(s): M54.12 - Radiculopathy, cervical region Category: Medical Plan: Prescribed gabapentin for nerve pain, monitor for effectiveness, and reassess in one month. (3) Chronic back pain: Code(s): M54.9 - Dorsalgia, unspecified; G89.29 - Other chronic pain Category: Medical Plan: Continued specialist and physical therapy referrals to address chronic pain management. (4) Anxiety: Code(s): F41.9 - Anxiety disorder, unspecified Category: Medical Plan: Alternate counseling options within facility, discussing interim support options. (5) Hypertension: Code(s): I10 - Essential (primary) hypertension Category: Medical Plan: Current blood pressure stable, monitor and reassess with potential medication impacts. (6) Hypercholesteremia: Code(s): E78.00 - Pure hypercholesterolemia, unspecified Category: Medical Plan: Ongoing lipid profile monitoring and encouragement of medication adherence. (7) Right shoulder pain: Code(s): M25.511 - Pain in right shoulder Category: Medical Plan: Patient muscular skeletal pain. Was seen in the ER and cleared for any acute processes. Will refer to PT, Orthopedics in start patient on gabapentin 100 mg t.i.d.. Condition is stable continue to monitor. Plan Plan Patient was informed and verbally consented to the use of an ambient scribe for clinic note documentation during this visit. 1. Cervical Radiculopathy Prescribed gabapentin for nerve pain, monitor for effectiveness, and reassess in one month. 2. Axillary Lymphadenopathy Referred to allergy/immunology for further assessment of recurrent lymphadenopathy. 3. Chronic Back Pain Continued specialist and physical therapy referrals to address chronic pain management. 4. Plantar Fasciitis Awaiting specialist contact to facilitate therapy. 5. Anxiety Alternate counseling options within facility, discussing interim support options. 6. Hypertension Current blood pressure stable, monitor and reassess with potential medication impacts. 7. Hypercholesterolemia Ongoing lipid profile monitoring and encouragement of medication adherence. 8. Contact Dermatitis Monitor left arm for improvements, manage symptoms as they emerge. I confirmed the diagnosis of cervical radiculopathy based on imaging findings and the patient's report of symptoms. Gabapentin was prescribed to manage nerve pain, with drowsiness noted as a possible side effect. I discussed referral to allergy/immunology given recurrent lymphadenopathy, alongside addressing the patient's anxiety and challenges in counseling engagement. Blood pressure and cholesterol levels require monitoring for medication side effects and compliance. Encouragement was given for continued follow-up with specialists for chronic pain management. The patient was instructed to seek immediate care for any new or worsening symptoms. Orders: Referrals Allergy & Immunology Referral R59.0 - Localized enlarged lymph nodes Medications: New gabapentin 100 mg PO TID 30 days 90 caps 1RF Patient Instructions: - Take gabapentin 100 mg three times daily for nerve pain. - Monitor any side effects, especially drowsiness, and avoid driving or operating machinery. - Follow up with the allergy/immunology and other specialists as scheduled. - Continue prescribed cholesterol medication and blood pressure monitoring. - Return to the clinic if new symptoms develop or existing ones worsen. - Engage with counseling support options discussed during the visit. - Monitor and manage any symptoms of possible allergic reactions.
[2024-09-20 13:07] VITALS: BP 122/78; PULSE 82; O2SAT 98; BMI 46.0
== END 2024-09-20 13:59 | disposition home or self-care (01) ==
LOC: HO.HMCH 12:57
PROVIDERS: PCP Physician Assistant Medical; Visit Provider Physician Assistant Medical
DX: R59.0 Localized enlarged lymph nodes (principal); M54.12 Radiculopathy, cervical region; M54.9 Dorsalgia, unspecified; G89.29 Other chronic pain; F41.9 Anxiety disorder, unspecified; I10 Essential (primary) hypertension; E78.00 Pure hypercholesterolemia, unspecified; M25.511 Pain in right shoulder

== ENCOUNTER → 2024-09-20 12:56 | Outpatient (BNVA) | payer OTHER, SELFPAY | PROVIDERS: PCP Physician Assistant Medical; Visit Provider Physician Assistant Medical | DX: M54.12 Radiculopathy, cervical region (principal); F41.9 Anxiety disorder, unspecified; R59.0 Localized enlarged lymph nodes; G89.29 Other chronic pain; M25.511 Pain in right shoulder; I10 Essential (primary) hypertension; E78.00 Pure hypercholesterolemia, unspecified | CPT/HCPCS: 96127; 99212 ==

== ENCOUNTER 2024-10-15 09:57 | Outpatient (AMB) | payer OTHER, SELFPAY ==
--- NOTE | 2024-10-15 09:57 | A.OFFVIS_ITS ---
Vital Signs 10/15/24 09:58 Height 6 ft 2 in Weight 356 lb BMI 45.7 BP 155/87 H Blood Pressure Location Lt brachial Position Sitting Respiration 16 Pulse 87 Pulse Source Pulse Oximeter Pulse Oximetry (%) 98 Oxygen Delivery Method Room Air Intake Visit Reasons: Radiculopathy, cervical region Reservation Clerk Required: No Allergies azithromycin Adverse Reaction (Intermediate, Verified 10/15/24 09:59) stomach pain Medication List - Last Reconciled 10/15/24 by Flaca Lyons LPN acetaminophen ER (Tylenol 8 Hour) 1,300 mg (2 x 650 mg) PO Q12H ascorbic acid (vitamin C) 1,000 mg PO DAILY atorvastatin 10 mg PO BEDTIME bupropion HCl XL 300 mg PO QAM bupropion HCl XL 150 mg PO QAM calcium carbonate (Antacid (calcium carbonate)) 215 mg PO BID cholecalciferol (vitamin D3) 25 mcg PO DAILY colchicine 0.6 mg PO DAILY PRN gabapentin 100 mg PO TID 30 days guanfacine ER 1 mg PO DAILY lidocaine 5% (Lidoderm) 1 patch topical DAILY lisinopril 10 mg PO DAILY mecobalamin (vitamin B12) (B12 Active) 1,000 mcg PO DAILY meloxicam 15 mg PO DAILY PRN methocarbamol 1,500 mg (2 x 750 mg) PO TID PRN metoprolol succinate ER 25 mg PO DAILY polyethylene glycol 3350 (Miralax) 17 grams PO DAILY PRN tadalafil 5 mg PO DAILY zinc acetate 25 mg PO DAILY HPI HPI Radiculopathy, cervical region: Details: History of Present Illness The patient is a 43-year-old male presenting with chronic neck pain with radiation to the right arm. The pain started spontaneously a month ago, increasing in intensity and interfering with daily functioning, particularly sleep. It's characterized by stabbing and needle-like sensations in the right arm and hand, worsening with movement and present intensely upon waking. Initial intervention included muscle relaxants at the ER, and subsequent treatments involved gabapentin and lidocaine with moderate short-term relief. The patient has engaged in physical therapy, facilitated by exercises and massage focusing on the C5-C6 cervical vertebrae. This regimen has assisted in transforming the constant pain into an intermittent issue, albeit with periodic severe occurrences. Long-term issues include chronic lower back pain and plantar fasciitis, compounding physical activity limitations. Pain Description - Onset: 1 month ago, spontaneous - Quality & Character: Stabbing and needle-like - Primary Location: Neck, with radiation to the right arm and hand - Exacerbating Factors: Movements, waking up in the morning - Relieving Factors: Muscle relaxants, gabapentin, lidocaine, physical therapy - Interference with Activities: Sleep disruptions, limitations in daily activities Physical Exam - Appears afebrile. - Alert and oriented. - Mood and affect appropriate. - Follows and participates in conversation appropriately. - Respiratory effort is unlabored. - Able to transition from sit to stand unassisted. - Ambulates with bilaterally normal heel strike and toe off. - Able to stand and walk on toes and heels. - Cervical ROM reproduces discomfort. Pain Management - Affect: Pain significantly impacts daily function and quality of life - Analgesia: Patient currently using gabapentin, lidocaine, and occasional muscle relaxants - Adverse Effects: None reported - Activities of Daily Living: Pain restricts physical activities, including sleep and daily functioning - Aberrant Drug Related Behaviors: None reported [facility] Medical History (Updated 09/20/24 @ 13:56 by Mitzi Quijano PA-C) Hypercholesteremia Anxiety Cervical radiculopathy Right shoulder pain Neck pain Lymphadenopathy, axillary Lymphedema Tick bite RBBB Sinus tachycardia Left axis deviation Obesity, morbid, BMI 40.0-49.9 Hyperlipidemia LDL goal <100 Depression Plantar fasciitis, left Chronic back pain Left axillary pain Enlarged lymph node Constipation Essential tremor Follow-up exam, 3-6 months since previous exam Wellness examination Encounter for screening colonoscopy Vasectomy evaluation Erectile dysfunction Gout Major depressive disorder in remission Morbid obesity Obstructive sleep apnea hypopnea, severe Low back pain Migraines Surgical History No pertinent past surgical history Family History Mother No problems noted. Father Mental health disorder Sister No problems noted. Other Substance use disorder Social History Household Members: Significant Other and Friend(s) Housing: Apartment Alcohol intake: current Alcohol intake frequency: holidays/special occasions only Patient Tobacco Use Status: Never used Tobacco e-Cigarette/Vaping Use: Never Used Second Hand Smoke Exposure: No service: No Current occupational status: unemployed Cognitive needs: No Hearing needs: No Vision needs: Yes Physical Exam Vital Signs: Last Vital Signs Pulse 87 10/15/24 09:58 Resp 16 10/15/24 09:58 BP 155/87 H 10/15/24 09:58 Pulse Ox 98 10/15/24 09:58 Oxygen Delivery Method Room Air 10/15/24 09:58 BMI result Body Mass Index 45.7 Assessment & Plan Assessment & Plan (1) Cervical radiculopathy: Code(s): M54.12 - Radiculopathy, cervical region Category: Medical Plan Plan - Continue physical therapy focusing on the low cervical area; partner with e xercises aimed at minimizing muscle tension. - Limit muscle relaxant use to days with extreme discomfort, supplementing with stretching and posture exercises. - Optimize sleeping arrangements to reduce pain, particularly focusing on pillow and mattress choices. - Encourage the incorporation of stretching exercises for concurrent plantar fasciitis and low back pain management. Patient was informed and verbally consented to the use of an ambient scribe for clinic note documentation during this visit. Discussion Notes I discussed the diagnosis of cervical radiculopathy with the patient, emphasi zing that physical therapy, home exercises, and optimal sleeping arrangements are mayers to pain management. I explained the role of muscle relaxants should be minimised, focusing instead on physical rehabilitation through prescribed exercises and positional therapy. Risks of long-term medication use were discussed, highlighting the benefits of non-pharmaceutical interventions. I advised that the patient continue with the current regimen including gabapentin and lidocaine for immediate but short-term relief, with a follow-up only if substantial improvement fails to occur over three months. Patient Instructions - Continue physical therapy and follow recommended exercise regimen. - Use muscle relaxants only occasionally, primarily relying on exercises and stretches. - Adjust sleeping positions and use supportive pillows to maintain neck alignment. - Monitor pain and revisit if no significant improvement in three months. - Use [id number] pain relief cautiously, prioritizing non-medication strategies. Coding Level of Care Code New Pt Level 4 (48977) Diagnoses Cervical radiculopathy M54.12
[2024-10-15 09:58] VITALS: BP 155/87; PULSE 87; RESP 16; O2SAT 98; BMI 45.7
== END 2024-10-15 10:29 | disposition home or self-care (01) ==
PROVIDERS: PCP Physician Assistant Medical; Referring Provider Physician Assistant Medical; Visit Provider Internal Medicine
DX: M54.12 Radiculopathy, cervical region (principal)
CPT/HCPCS: 99204

== ENCOUNTER → 2024-10-15 09:57 | Outpatient (BNVA) | payer OTHER, SELFPAY | PROVIDERS: PCP Physician Assistant Medical; Referring Provider Physician Assistant Medical; Visit Provider Internal Medicine | DX: M54.12 Radiculopathy, cervical region (principal) | CPT/HCPCS: 99202 ==

== ENCOUNTER 2024-10-25 09:38 | Outpatient (AMB) | payer OTHER, SELFPAY ==
--- NOTE | 2024-10-25 09:53 | A.OFFPC_ITS ---
Vital Signs 10/25/24 09:54 Height 6 ft 2 in Weight 352 lb 4 oz BMI 45.2 BP 150/92 H Blood Pressure Location Lt brachial Position Sitting Pulse 93 Pulse Source Pulse Oximeter Temp 96.9 F Temp Source Temporal Artery Scan Pulse Oximetry (%) 98 Oxygen Delivery Method Room Air Intake Visit Reasons: 1 mo follow up Intake Note: Patient is here to follow up on Chronic back pain and neck pain. 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: Not Required per policy Accompanied by: Self / Same As Patient Allergies azithromycin Adverse Reaction (Intermediate, Verified 10/25/24 09:54) stomach pain Tobacco use date assessed: 10/25/24 Dental Screening Dental Screen Date: 09/20/24 [facility] Medical History (Updated 09/20/24 @ 13:56 by Mitzi Quijano PA-C) Hypercholesteremia Anxiety Cervical radiculopathy Right shoulder pain Neck pain Lymphadenopathy, axillary Lymphedema Tick bite RBBB Sinus tachycardia Left axis deviation Obesity, morbid, BMI 40.0-49.9 Hyperlipidemia LDL goal <100 Depression Plantar fasciitis, left Chronic back pain Left axillary pain Enlarged lymph node Constipation Essential tremor Follow-up exam, 3-6 months since previous exam Wellness examination Encounter for screening colonoscopy Vasectomy evaluation Erectile dysfunction Gout Major depressive disorder in remission Morbid obesity Obstructive sleep apnea hypopnea, severe Low back pain Migraines Surgical History No pertinent past surgical history Family History Mother No problems noted. Father Mental health disorder Sister No problems noted. Other Substance use disorder Social History Household Members: Significant Other and Friend(s) Housing: Apartment Alcohol intake: current Alcohol intake frequency: holidays/special occasions only Patient Tobacco Use Status: Never used Tobacco e-Cigarette/Vaping Use: Never Used Second Hand Smoke Exposure: No service: No Current occupational status: unemployed Cognitive needs: No Hearing needs: No Vision needs: Yes Questionnaire Thrive Questionnaire Date Thrive assessed: 09/20/24 I am a: Patient What is your living situation today?: I have a steady place to live Within the past 12 months, did the food you bought not last and you didn't have the money to get more?: Never true Within the past 12 months, did you worry whether your food would run out before you got money to buy more?: Never true Do you have trouble paying for medicines?: No Do you have trouble getting transportation to medical appointments?: No Do you have trouble paying your heating and electricity bill?: No Do you have trouble taking care of your child, family member or friend?: No Do you have trouble with day-to-day activities such as bathing, preparing meals, shopping, managing finances, etc.?: No Are you currently unemployed and looking for a job?: Yes Are you interested in more education?: Yes Please select the resources that you would like help with: None Currently or been in a relationship where the following occur: No concerns reported THRIVE Score: 0 LUIS-7 AMB Questionnaire LUIS-7 Date LUIS - 7 assessed: 09/20/24 Source: Developed by Drs. Murali Hinkle, Yarely Estrada, Jaswant Sotelo and colleagues, with an educational erika from [employer]. Physical exam (Primary Care) Vital Signs: Last Vital Signs Temp 96.9 F 10/25/24 09:54 Pulse 93 10/25/24 09:54 BP 150/92 H 10/25/24 09:54 Pulse Ox 98 10/25/24 09:54 Oxygen Delivery Method Room Air 10/25/24 09:54 BMI result Body Mass Index 45.2 Tobacco/Smoking Status: Tobacco use Status Tobacco use date assessed 10/25/24 10/25/24 09:55 Patient Tobacco Use Status Never used Tobacco 10/25/24 09:53 Tobacco use type 10/08/24 15:30 e-Cigarette/Vaping Use Never Used 10/25/24 09:53 Thrive Assessment: Date of Thrive Assessment Date Thrive assessed 09/20/24 10/25/24 09:53 Currently or been in a relationship where the following occur: No concerns reported Coding Level of Care Code Est Pt Level 4 (94366) Complex EM visit Add On G2211 Diagnoses Major depressive disorder in remission F32.5 Neck pain M54.2 Assessment & Plan Assessment & Plan (1) Major depressive disorder in remission: Code(s): F32.5 - Major depressive disorder, single episode, in full remission Category: Medical Plan: Condition is stable. Continue current medications. (2) Neck pain: Code(s): M54.2 - Cervicalgia Category: Medical Plan: Continue physical therapy. Plan History of Present Illness - The patient is a 43-year-old male presenting with cervical radiculopathy. - The neck pain radiates down the arm and hand, with symptoms of nerve impingement improving with physical therapy. - A right bundle branch block was identified on an EKG, and the patient is on metoprolol and lisinopril. - The patient is awaiting a cardiology appointment. - Reports adherence to a healthy diet but needs more exercise. - Currently taking Wellbutrin for anxiety. Social History - The patient reports eating a healthy diet but acknowledges a need for more exercise. Review of Systems - Musculoskeletal: Reports neck pain radiating to the arm and hand, improving with physical therapy. - Cardiovascular: Reports right bundle branch block identified on EKG, denies current chest pain. - Psychiatric: Reports anxiety, currently managed with Wellbutrin. Physical Exam General: Cooperative and healthy appearing Nutritional Appearance: Well nourished Orientation/consciousness: Patient oriented x3 Limitations: No limitations Head: Normal to inspection General: Appearance normal, both eyes and all related structures Neck: Normal visual inspection Chest: Normal palpation of entire chest wall Respiratory: N ormal respiratory effort Neurology: Patient oriented x3, currently still having impinged nerve symptoms, but it's definitely improving with physical therapy. Results - EKG: Right bundle branch block identified. Plan 1. Cervical Radiculopathy - Continue physical therapy as it is showing improvement in symptoms. 2. Right Bundle Branch Block - Continue metoprolol and lisinopril as prescribed. - Await cardiology consultation for further evaluation. 3. Hypertension - Continue lisinopril as prescribed. 4. Anxiety - Continue Wellbutrin for anxiety management. Discussion Notes The patient was advised to continue physical therapy for cervical radiculopathy as it is showing improvement. Metoprolol and lisinopril should be continued for the management of right bundle branch block and hypertension. The patient is awaiting a cardiology consultation for further evaluation of the right bundle branch block. Wellbutrin should be continued for anxiety management. Follow-up is scheduled in six months. Patient Instructions - Continue physical therapy for neck pain. - Take metoprolol and lisinopril as prescribed. - Await cardiology appointment for further evaluation. - Continue Wellbutrin for anxiety. - Follow up in six months.
[2024-10-25 09:54] VITALS: BP 150/92; PULSE 93; TEMP 36.1; O2SAT 98; BMI 45.2
== END 2024-10-25 10:22 | disposition home or self-care (01) ==
PROVIDERS: PCP Physician Assistant Medical; Visit Provider Internal Medicine
DX: F32.5 Major depressive disorder, single episode, in full remission (principal); M54.2 Cervicalgia

== ENCOUNTER → 2024-10-25 09:38 | Outpatient (BNVA) | payer OTHER, SELFPAY | PROVIDERS: PCP Physician Assistant Medical; Visit Provider Internal Medicine | DX: M54.12 Radiculopathy, cervical region (principal); G89.29 Other chronic pain; F32.5 Major depressive disorder, single episode, in full remission; I45.10 Unspecified right bundle-branch block; I10 Essential (primary) hypertension; F41.9 Anxiety disorder, unspecified | CPT/HCPCS: 99212 ==

== ENCOUNTER 2024-10-31 07:46 | Emergency (ER) | payer OTHER, SELFPAY ==
--- NOTE | 2024-10-31 | ECG_ITS ---
Test Reason : CP Blood Pressure : */* mmHG Vent. Rate : 86 BPM Atrial Rate : 86 BPM P-R Int : 174 ms QRS Dur : 144 ms QT Int : 370 ms P-R-T Axes : 63 -10 18 degrees QTcB Int : 442 ms Normal sinus rhythm Right bundle branch block Abnormal ECG When compared with ECG of 14-Sep-2024 17:40, No significant change was found Referred By: Generic ED Physician Electronically Signed By: NAS WARNER
--- NOTE | ~2024-10-31 | XR_ITS ---
EXAMINATION: XR CHEST CLINICAL INFORMATION: sternal chst pain COMPARISON: 01/02/2024. TECHNIQUE: 2 views of the chest were obtained. FINDINGS: The cardiac, hilar, and mediastinal contours are normal. The lungs are clear bilaterally. There is no pneumothorax or pleural effusion. There is no focal osseous or soft tissue abnormality. There are spinal degenerative changes. XR/XR chest 2V IMPRESSION: No active pulmonary disease. Electronically signed by: Edwar Vyas MD 10/31/2024 09:11 AM EDT
[2024-10-31 07:56] VITALS: BP 149/77; PULSE 89; RESP 20; TEMP 37.1; O2SAT 99; BMI 42.0
[2024-10-31 08:05] VITALS: BP 149/77; PULSE 86; RESP 12; TEMP 37.1; O2SAT 98
[2024-10-31 08:12] VITALS: PULSE 84
--- NOTE | 2024-10-31 08:28 | PC.NURSE ---
43 M presents to ED with Left sided chest pain, 6. Sts started this morning when he woke up, gets worse when laying down and better when sitting up. HX htn. Pt denies SOB, RR even and unlabored. Pt sts takes antacids at home. A+Ox4, calm and cooperative.
[2024-10-31 08:30] LABS: MANUAL DIFF FLAG NO
--- NOTE | 2024-10-31 08:30 | ED.CHESTPAIN ---
HPI - Chest Pain General Chief Complaint: Chest Pain Stated Complaint: CP Time Seen by Provider: 10/31/24 08:15 Source: patient Mode of arrival: ambulatory Limitations: no limitations History of Present Illness ED Provider: ALANNAH FARAH PA-C HPI narrative: 43 year old male with pmhx significant for ADHD, HLD, HTN, RBBB, GERD, and gout presents to the ED today for evaluation of left sided chest pain x7 hours. Reports waking from his sleep around 0230 this morning due to his neck discomfort. He then noticed that he was having 4/10 left sided chest pain. Pain is described as a tight sensation. Pain is not radiating, not exertional, not relieved with rest. Pain has been fluctuating since onset, now more of a discomfort. He did not trial any medication of his symptoms prior to arrival. Denies recent travel or long car rides. He does have a history of GERD however discontinued this a few weeks ago. States this discomfort feels somewhat similar. Denies FLANNERY, dizziness, vision changes, sob, wheezing, palpitations, LE pain/swelling, N/V. He reports history of cervical radiculopathy. He is currently in PT for this. No change in neck pain, has been improving with treatment. Related Data Home Medications ?Medication ?Instructions ?Recorded ?Confirmed meloxicam 15 mg tablet 15 mg PO DAILY PRN 07/25/24 10/15/24 polyethylene glycol 3350 17 17 g PO DAILY PRN constipation 07/25/24 10/15/24 gram/dose oral powder (Miralax) tadalafil 5 mg tablet 5 mg PO DAILY 07/25/24 10/15/24 ascorbic acid (vitamin C) 1,000 mg 1,000 mg PO DAILY 10/15/24 10/15/24 capsule calcium carbonate (Antacid 215 mg PO BID 10/15/24 10/15/24 (calcium carbonate)) cholecalciferol (vitamin D3) 25 25 mcg PO DAILY 10/15/24 10/15/24 mcg (1,000 unit) capsule mecobalamin (vitamin B12) 1,000 1,000 mcg PO DAILY 10/15/24 10/15/24 mcg chewable tablet (B12 Active) zinc acetate 25 mg (zinc) capsule 25 mg PO DAILY 10/15/24 10/15/24 Previous Rx's ?Medication ?Instructions ?Recorded colchicine 0.6 mg tablet 0.6 mg PO DAILY PRN Gout #14 tabs 04/19/24 guanfacine 1 mg tablet,extended 1 mg PO DAILY #30 tabs 04/19/24 release 24 hr atorvastatin 10 mg tablet 10 mg PO BEDTIME hyperlipidemia 08/02/24 #90 tabs bupropion HCl 150 mg 24 hr tablet, 150 mg PO QAM #90 tabs 08/02/24 extended release bupropion HCl 300 mg 24 hr tablet, 300 mg PO QAM #90 tabs 08/02/24 extended release metoprolol succinate 25 mg 25 mg PO DAILY #90 tabs 08/17/24 tablet,extended release 24 hr lisinopril 10 mg tablet 10 mg PO DAILY #90 tabs 09/17/24 gabapentin 100 mg capsule 100 mg PO TID 30 days #90 caps 09/20/24 acetaminophen 650 mg 1,300 mg (2 x 650 mg) PO Q12H #30 09/27/24 tablet,extended release (Tylenol 8 tabs Hour) lidocaine 5 % topical patch 1 patch topical DAILY #15 ea 09/27/24 (Lidoderm) omeprazole 20 mg capsule,delayed 20 mg PO DAILY 2 weeks #14 caps 10/31/24 release Allergies Allergy/AdvReac Type Severity Reaction Status Date / Time azithromycin AdvReac Intermediate stomach Verified 10/31/24 07:59 pain Review of Systems Review of Systems: Constitutional: No fever, chills, fatigue, night sweats, weight changes ENT/Mouth: No ear pain, hearing loss, nasal congestion, sinus pain, rhinorrhea, sore throat Eyes: No eye pain, swelling, redness, vision changes, discharge Cardio: No palpitations, [place], orthopnea, peripheral edema, +chest pain Pulm: No SOB, cough, sputum, wheezing, dyspnea, hemoptysis GI: No nausea, vomiting, hematemesis, abdominal pain, diarrhea, constipation, hematochezia, melena : No irregular bleeding, dysuria, frequency, urgency, hesitancy, hematuria, flank pain, urinary flow changes, urinary incontinence or retention MSK: No back pain, neck pain, joint pain, myalgias Skin: No lesions, rashes Neuro: No weakness, numbness, paresthesias, LOC, dizziness, headache Psych: No anxiety/panic, depression, SI/HI, AH/VH All other systems reviewed and are negative. [facility] Past Medical History Attestation statement: The following information was validated with the patient. Source: old records reviewed and nursing notes reviewed Medical History Hypercholesteremia Anxiety Cervical radiculopathy Right shoulder pain Neck pain Lymphadenopathy, axillary Lymphedema Tick bite RBBB Sinus tachycardia Left axis deviation Obesity, morbid, BMI 40.0-49.9 Hyperlipidemia LDL goal <100 Depression Plantar fasciitis, left Chronic back pain Left axillary pain Enlarged lymph node Constipation Essential tremor Follow-up exam, 3-6 months since previous exam Wellness examination Encounter for screening colonoscopy Vasectomy evaluation Erectile dysfunction Gout Major depressive disorder in remission Morbid obesity Obstructive sleep apnea hypopnea, severe Low back pain Migraines Surgical History No pertinent past surgical history Family History Family History Mother No problems noted. Father Mental health disorder Sister No problems noted. Other Substance use disorder Social History Social History Household Members: Significant Other and Friend(s) Housing: Apartment Alcohol intake: current Alcohol intake frequency: a few times a month Alcohol type: wine Patient Tobacco Use Status: Never used Tobacco Smoked in Last 30 Days: No e-Cigarette/Vaping Use: Never Used Second Hand Smoke Exposure: No Use of substances other than those prescribed or required for medical reasons: No Advance Directives: No Advance Directives Information Provided: Yes service: No Current occupational status: unemployed Cognitive needs: No Hearing needs: No Vision needs: Yes Physical Exam Vital Signs: Vital Signs: Last Vital Signs Temp 98.8 F 10/31/24 08:05 Pulse 74 10/31/24 11:16 Resp 13 10/31/24 11:16 BP 111/69 10/31/24 11:16 Pulse Ox 97 10/31/24 11:16 O2 Del Method Room Air 10/31/24 11:16 BMI result Body Mass Index 42.0 hypertensive, vitals otherwise wnl General: Well appearing, in no acute distress. Skin: Warm, dry, intact. No rashes or lesions. Head: Normocephalic, atraumatic. EENT: Hearing is intact b/l. Conjunctiva clear. PERRLA. EOM intact. Moist mucous membranes.? Neck: Supple without LAD Cardiac: Chest wall symmetric. RRR Lungs: Normal respiratory effort without accessory muscle use. CTA bilaterally. Abdomen: Soft, non-tender, non-distended. No rebound tenderness or guarding. Positive BS x4. Back: No midline spinous or paraspinal tenderness. No step off deformity. Ext: Upper and lower extremities atraumatic, without tenderness, deformity, swelling or erythema. no pitting edema, no calf tenderness b/l. Neuro: AOx3. Normal speech. Strength 5/5 intact throughout. Sensation intact to light touch. NV intact distally. Ambulating with steady gait. Psych: Appropriate mood and affect. Responds appropriately to questions. Course Course Course Narrative: 946 -- CBC without leukocytosis or left shift. No anemia. H&H stable. Chemistry without acute electrolyte abnormality requiring intervention. No TED. Liver function normal. Initial troponin undetectable. Will repeat for delta. EKG showing normal sinus rhythm with known right bundle-branch block, no acute ischemic changes or ST elevations. BNP WNL. Negative COVID, flu, RSV. Chest x-ray does not show effusion or pneumonia. > will trial GI cocktail with re-evaluation 1150 -- delta troponin flat. On re-evaluation, patient reports improvement in symptoms following GI cocktail. no complaints at present. anxious for dc home. daniel's symptoms likely related to GERD/ gastritis. will send omeprazole to pharmacy. patient agreeable. Patient has remained stable throughout ED visit today. Discussed worrisome signs and symptoms and when to return to the ED. All questions answered at this time. Patient is agreeable with disposition and stable for discharge. Medications Administered Discontinued Medications Generic Name Dose Route Start Last Admin Trade Name Freq PRN Reason Stop Dose Admin Al Hydroxide/Mg Hydroxide 30 ml 10/31/24 09:46 10/31/24 10:16 Magnesium Hydrox/Alum Hydrox 30 Ml Oral.Susp PO 10/31/24 09:47 30 ml ONCE ONE Administration Famotidine 20 mg 10/31/24 09:46 10/31/24 10:16 Famotidine 20 Mg Tablet PO 10/31/24 09:47 20 mg ONCE ONE Administration Ketorolac Tromethamine 30 mg 10/31/24 09:13 10/31/24 10:16 Ketorolac Tromethamine 30 Mg/Ml Vial IM 10/31/24 09:14 30 mg ONCE ONE Administration Ondansetron HCl 4 mg 10/31/24 09:46 10/31/24 10:16 Ondansetron Odt 4 Mg Tab.Viviana WALTONINGU 10/31/24 09:47 4 mg ONCE ONE Administration Medical Decision Making Medical Decision Making [facility] Narrative: 43 year old male with pmhx significant for HTN, RBBB, GERD, and gout presents to the ED today for evaluation of left sided chest pain x7 hours. vital signs notable for hypertension, otherwise wnl. This patient presents with chest pain, with symptoms suggestive of noncardiac chest pain.? History without high risk features (not substernal, no exertional component, not relieved with rest).? Exam without evidence of volume overload. EKG without signs of active ischemia. Given the timing of pain to ED presentation, plan to send delta troponin to evaluate for NSTEMI. Differential diagnosis also includes anemia, electrolyte abnormality, costochondritis, msk pain, pneumonia, pleurisy, GERD, PUD, gastritis Presentation not consistent with acute PE (PERC 0), pneumothorax, thoracic aortic dissection, cardiac effusion or tamponade, myocarditis, pericarditis. Plan: labs, troponin, EKG, CXR, pain control, reassessment Differential Diagnosis Differential Diagnoses: The differential diagnosis associated with the presentation includes as above. Admission/Observation not indicated. Lab Data [facility] Lab Attestation statement: I reviewed the patient's lab results. as above. 10/31/24 08:25 10/31/24 08:25 Labs: Lab Results 10/31/24 10/31/24 Range/Units 08:25 11:00 WBC 7.7 (4.8-10.8) X10*3/uL RBC 5.26 (4.60-5.80) X10*6/uL Hgb 15.5 (14.0-18.0) g/dl Hct 44.2 (42.0-52.0) % MCV 84.0 (80.0-98.0) fL MCH 29.5 (27.0-33.0) pg MCHC 35.1 (31.0-36.0) g/dl RDW 13.1 (11.0-16.0) % Plt Count 253 (160-400) X10*3/uL MPV 10.5 (9.4-12.4) fL Immature Gran % (Auto) 0.3 (0.0-0.4) % Neut % (Auto) 60.4 (45-73) % Lymph % (Auto) 30.8 (20-40) % [place] % (Auto) 7.1 (2-11) % Eos % (Auto) 0.4 (0-4) % Baso % (Auto) 1.0 (0-2) % Lymph # (Auto) 2.4 (1.2-4.9) X10*3/uL [place] # (Auto) 0.6 (0.1-1.2) X10*3/uL Eos # (Auto) 0.0 (0.0-0.4) X10*3/uL Baso # (Auto) 0.1 (0.0-0.2) X10*3/uL Abs Immat Gran (auto) 0.02 (0.00-0.03) X10*3/uL Absolute Neuts (auto) 4.7 (2.0-8.3) x10*3/uL Absolute Nucleated RBC 0.000 (0.0-0.012) X10*3/uL Nucleated RBC % (auto) 0.0 (0.0-0.2) /100WBC PT 11.3 (10.9-12.4) SEC INR 1.0 (0.9-1.1) Sodium 141 (135-145) mmol/L Potassium 3.7 (3.3-5.1) mmol/L Chloride 109 H (96-108) mmol/L Carbon Dioxide 24 (22-29) mmol/L Anion Gap 12 (12-20) BUN 12 (9-16) mg/dL Creatinine 1.02 (0.5-1.4) mg/dL Estim Creat Clear Calc 140.5 Estimated GFR > 60 Random Glucose 101 (60-115) mg/dL Calcium 8.8 (8.4-10.2) mg/dL Total Bilirubin 0.8 (0.0-1.0) mg/dL AST 25 (5-37) U/L ALT 19 (0-40) U/L Alkaline Phosphatase 98 (39-117) U/L Troponin I High Sens < 2.7 < 2.7 (<3.5-35.0) ng/L B-Natriuretic Peptide 11 (<100) pg/mL Total Protein 7.6 (6.5-8.0) g/dL Albumin 4.5 (3.5-5.0) g/dL Influenza Type A (PCR) NEGATIVE (Negative) Influenza Type B (PCR) NEGATIVE (Negative) RSV RNA Qual (PCR) NEGATIVE (Negative) SARS-CoV-2 RNA (RT-PCR) NEGATIVE (Negative) Independent Interpretation I performed an independent interpretation of an: EKG and Plain X-Ray Interpretation: EKG showing normal sinus rhythm, rate of 86 beats per minute, QT 370, QTC 442, right bundle-branch block, no acute ischemic changes or ST elevations CXR without infiltrate or consolidation Radiology Impression Discussion of test interpretation with radiology: I have reviewed the radiologist's reading. Radiologist Impression: Procedure(s): XR chest 2V Accession Number(s): [id number] cc: Alannah Farah; Angelito Lee MD~ EXAMINATION: XR CHEST CLINICAL INFORMATION: sternal chst pain COMPARISON: 01/02/2024. TECHNIQUE: 2 views of the chest were obtained. FINDINGS: The cardiac, hilar, and mediastinal contours are normal. The lungs are clear bilaterally. There is no pneumothorax or pleural effusion. There is no focal osseous or soft tissue abnormality. There are spinal degenerative changes. XR/XR chest 2V IMPRESSION: No active pulmonary disease. Electronically signed by: Edwar Vyas MD 10/31/2024 09:11 AM EDT External Record Review External record reviewed: Inpatient record and Office record Prescription Management I considered prescription management with: Other (Omeprazole) Chronic Conditions Patient?s care impacted by: Hypertension Social Determinants Patient?s care significantly limited by Social Determinants of Health including: Other Social Determinant of Health Critical Care Time Critical Care Time Critical Care Time: No Discharge Plan Discharge Clinical Impression: Atypical chest pain Patient Disposition: Home, Self-Care Instructions: Chest Pain (ED), Noncardiac Chest Pain (ED) Additional Instructions: You were evaluated in the Emergency Department today for chest pain. Your evaluation has shown no signs of medical conditions requiring emergent intervention at this time. I have suspicion that your symptoms are GI related. I am sending a refill of your omeprazole to your pharmacy for you to take daily over the next few weeks. I recommend that you follow up with your primary care provider or your wet end helper as soon as possible for further testing as an outpatient. If you do not have one, a referral has been provided. Please call them to make an appointment, they will not call you. Return to the Emergency Department if you experience worsening or uncontrolled chest pain, shortness of breath, lightheadedness, feeling faint, nausea, vomiting, or any other concerning symptoms. Prescriptions: New omeprazole 20 mg capsule,delayed release(DR/EC) 20 mg PO DAILY 14 Days Qty: 14 0RF No Action lisinopril 10 mg tablet 10 mg PO DAILY Qty: 90 1RF acetaminophen [Tylenol 8 Hour] 650 mg tablet extended release 1,300 mg PO Q12H Qty: 30 0RF lidocaine [Lidoderm] 5 % adhesive patch,medicated 1 patch topical DAILY Qty: 15 1RF Rx Instructions: leave on most painful area for up to 12 hrs meloxicam 15 mg tablet 15 mg PO DAILY PRN polyethylene glycol 3350 [Miralax] 17 gram/dose powder 17 g PO DAILY PRN (Reason: constipation) tadalafil 5 mg tablet 5 mg PO DAILY Rx Instructions: USE [employer] COUPON ATTACHED NOT INSURANCE [id number] [facility] [id number] Member [id number] colchicine 0.6 mg tablet 0.6 mg PO DAILY PRN (Reason: Gout) Qty: 14 2RF guanfacine 1 mg tablet extended release 24 hr 1 mg PO DAILY Qty: 30 2RF atorvastatin 10 mg tablet 10 mg PO BEDTIME Qty: 90 1RF bupropion HCl 300 mg tablet extended release 24 hr 300 mg PO QAM Qty: 90 1RF bupropion HCl 150 mg tablet extended release 24 hr 150 mg PO QAM Qty: 90 1RF metoprolol succinate 25 mg tablet extended release 24 hr 25 mg PO DAILY Qty: 90 1RF gabapentin 100 mg capsule 100 mg PO TID 30 Days Qty: 90 1RF cholecalciferol (vitamin D3) 25 mcg (1,000 unit) capsule 25 mcg PO DAILY Antacid (calcium carbonate) 215 mg calcium (500 mg) tablet,chewable 215 mg PO BID zinc acetate 25 mg (zinc) capsule 25 mg PO DAILY mecobalamin (vitamin B12) [B12 Active] 1,000 mcg tablet,chewable 1,000 mcg PO DAILY ascorbic acid (vitamin C) 1,000 mg capsule 1,000 mg PO DAILY Referrals: [facility] [Provider Group] Angelito Lee MD [Primary Care Provider, Internal Medicine] Print Language: Latvian
[2024-10-31 08:32] LABS: Hematocrit 44.2 % (42.0-52.0); Hemoglobin 15.5 g/dl (14.0-18.0); Red Blood Count 5.26 X10*6/uL (4.60-5.80); White Blood Count 7.7 X10*3/uL (4.8-10.8)
[2024-10-31 08:45] LABS: Basophils Absolute Auto 0.1 X10*3/uL (0.0-0.2); Eosinophils Percent Auto 0.4 % (0-4); Imm Gran Abs Auto 0.02 X10*3/uL (0.00-0.03); Imm Gran Pct Auto 0.3 % (0.0-0.4); Lymphocytes Absolute Auto 2.4 X10*3/uL (1.2-4.9); Lymphocytes Percent Auto 30.8 % (20-40); Mean Corpuscular HGB Conc 35.1 g/dl (31.0-36.0); Mean Corpuscular Hemoglobin 29.5 pg (27.0-33.0); Mean Platelet Volume 10.5 fL (9.4-12.4); Monocytes Absolute Auto 0.6 X10*3/uL (0.1-1.2); Monocytes Percent Auto 7.1 % (2-11); Neutrophils Absolute Auto 4.7 x10*3/uL (2.0-8.3); Neutrophils Percent Auto 60.4 % (45-73); Platelet Count 253 X10*3/uL (160-400); Red Cell Distribution Width 13.1 % (11.0-16.0)
[2024-10-31 08:48] LABS: Alanine Aminotransferase 19 U/L (0-40); Albumin Level 4.5 g/dL (3.5-5.0); Alkaline Phosphatase 98 U/L (39-117); Anion Gap 12 (12-20); Aspartate Amino Transferase 25 U/L (5-37); Bilirubin Total 0.8 mg/dL (0.0-1.0); Blood Urea Nitrogen 12 mg/dL (9-16); Calcium 8.8 mg/dL (8.4-10.2); Carbon Dioxide 24 mmol/L (22-29); Chloride 109 mmol/L (96-108); Creatinine Clr Calc Pharmacy 140.5; Estimated Glomerular Filt Rate > 60; Glucose Random 101 mg/dL (60-115); Potassium 3.7 mmol/L (3.3-5.1); Sodium 141 mmol/L (135-145); Total Protein 7.6 g/dL (6.5-8.0)
[2024-10-31 08:54] LABS: B Type Natriuretic Peptide 11 pg/mL (<100)
[2024-10-31 08:58] LABS: Troponin-I High Sensitivity < 2.7 ng/L (<3.5-35.0)
[2024-10-31 09:05] LABS: Prothrombin Time 11.3 SEC (10.9-12.4)
[2024-10-31 09:11] LABS: Influenza A PCR NEGATIVE (Negative); Influenza B PCR NEGATIVE (Negative); Resp Syncy Virus RNA Qual PCR NEGATIVE (Negative); SARS COV2 PCR INHOUSE NEGATIVE (Negative)
[2024-10-31] MEDS: Ketorolac Tromethamine 30 MG/ML VIAL IM (10:16)
[2024-10-31] MEDS: Magnesium Hydrox/Alum Hydrox 30 ML ORAL.SUSP PO (10:16)
[2024-10-31] MEDS: Famotidine 20 MG TABLET PO (10:16)
[2024-10-31] MEDS: Ondansetron ODT 4 MG TAB.RAPDIS TRANSLINGU (10:16)
[2024-10-31 11:16] VITALS: BP 111/69; PULSE 74; RESP 13; O2SAT 97
[2024-10-31 11:33] LABS: Troponin-I High Sensitivity < 2.7 ng/L (<3.5-35.0)
[2024-10-31 12:12] VITALS: BP 111/69; PULSE 74; RESP 13; TEMP -17.7; TEMP 0; O2SAT 97
== END 2024-10-31 12:13 | disposition home or self-care (01) ==
PROVIDERS: Physician Assistant Medical; Emergency Provider Emergency Medicine; PCP Internal Medicine
DX: M54.12 Radiculopathy, cervical region (principal); M54.2 Cervicalgia; R07.89 Other chest pain; I10 Essential (primary) hypertension; Z03.818 Encounter for observation for suspected exposure to other biological agents ruled out; Z79.899 Other long term (current) drug therapy
CPT/HCPCS: 0241U; 36415; 71046; 80053; 83880; 84484; 85025; 85610; 93005; 96372; 99284; 99285; J1885

== ENCOUNTER → 2024-10-31 07:49 | Outpatient (BNV) | payer OTHER, SELFPAY | PROVIDERS: Emergency Provider Emergency Medicine; PCP Internal Medicine; Visit Provider Internal Medicine | DX: I45.10 Unspecified right bundle-branch block (principal) | CPT/HCPCS: 93010 ==

== ENCOUNTER → 2024-10-31 08:53 | Outpatient (BNV) | payer OTHER, SELFPAY | PROVIDERS: Emergency Provider Emergency Medicine; PCP Internal Medicine; Visit Provider Radiology Diagnostic Radiology | DX: R07.89 Other chest pain (principal) | CPT/HCPCS: 71046 ==

== ENCOUNTER 2024-11-05 09:14 | Outpatient (REF) | payer OTHER, SELFPAY ==
[2024-11-05 11:22] LABS: Prostate Specific Antigen 0.28 ng/mL (<0.05-4.0)
[2024-11-06 06:18] LABS: Sex Hormone Binding Globulin 40 nmol/L (10-50)
[2024-11-06 08:38] LABS: Follicle Stimulating Hormone 3.6 mIU/mL (1.4-12.8); Prolactin 4.7 ng/mL (2.0-18.0)
[2024-11-12 01:33] LABS: Testosterone, Free 31.9 pg/mL (35.0-155.0); Testosterone, Total 293 ng/dL (250-1100)
[2024-11-13 01:39] LABS: Estradiol Ultra Sensitive 39 pg/mL (< OR = 29)
== END 2024-11-05 09:15 | disposition home or self-care (01) ==
LOC: HO.LAB 09:14
PROVIDERS: PCP Internal Medicine; Visit Provider Urology
DX: N52.9 Male erectile dysfunction, unspecified (principal)
CPT/HCPCS: 36415; 82670; 83001; 83002; 84146; 84153; 84270; 84402; 84403

== ENCOUNTER 2024-11-12 14:07 | Outpatient (AMB) | payer OTHER, SELFPAY ==
--- NOTE | 2024-11-11 15:55 | A.OFFVIS_ITS ---
Intake Visit Reasons: 4m/ med review Intake Note: Patient presents today for 4m/med review Urology Medication:none Blood Thinner:none Antibiotic Allergies: Azithromycin Allergies azithromycin Adverse Reaction (Intermediate, Verified 11/12/24 14:31) stomach pain HPI Comments Details: 11/12/2024--last visit 07/16/2024 started on Cialis History of Present Illness - The patient is a 43-year-old male presenting with concerns regarding erectile dysfunction and low testosterone levels. - Erectile dysfunction was initially evaluated on 07/16/24, and the patient was started on daily Cialis. - The patient reports some improvement with Cialis but continues to experience dysfunction issues, estimating a 50% or less improvement. - Blood work on 11/05/24 showed low normal total testosterone at 293 and free testosterone below normal at 31. - PSA levels were normal at 0.28. - The patient is considering a vasectomy and is aware of the procedure options available. Results - Labs: Total testosterone 293 (low normal), free testosterone 31 (below normal), PSA 0.28 (normal) on 11/05/24. Plan Continue daily Cialis and consider adding 20 mg Cialis for sexual activity, not exceeding twice a week with at least three days in between doses. - Initiate testosterone replacement therapy with a daily gel, with follow-up blood work in three to four months to assess efficacy. - follow-up with nurse practitioner Norma Cartagena for continued testosterone replacement management - Schedule vasectomy scheduling the procedure with Dr. Morales. 07/16/24-Neeraj is a 43-year-old male presenting with a request for vasectomy and concerns regarding erectile dysfunction. He is confident in his decision to pursue a vasectomy due to a lack of desire for future procreation, demonstrating awareness of the procedure's permanence and the subsequent fertility implications if attempted reversal. He acknowledges the need for semen analysis post-procedure. Vasectomy procedure was discussed at length with the patient. He was informed that vasectomy is a safe, permanent, and effective form of control but there are risks involved. It may involve risk of hematoma, procedure failure which is rare, sperm granuloma which may cause mild pain, and congestion which may cause sense of pressure and generally resolves after several weeks. Also discussed is the reported post vasectomy pain syndrome with chronic testicular pain which is uncommon <5% The patient was advised that it is necessary to use other types of control methods for > 12 weeks and until we send semen for analysis to make sure there is no more sperm in the semen. For erectile dysfunction, the patient identifies challenges in maintaining erections, observing a decline over several years with occasional morning erections still occurring. Back pain appears to be a contributing factor. The patient has not explored any pharmacologic interventions up to this point and is open to trialing a daily tadalafil regimen, aimed at sustaining erectile function. An investigation into testosterone levels and related hormones is planned, with attention to insurance coverage for medications through pharmacy discount programs. He denies previous treatments or consultations for his erectile concerns. Results - Labs: Plan for blood work to assess testosterone and related hormonal levels with a fasting requirement. [facility] Medical History Hypercholesteremia Anxiety Cervical radiculopathy Right shoulder pain Neck pain Lymphadenopathy, axillary Lymphedema Tick bite RBBB Sinus tachycardia Left axis deviation Obesity, morbid, BMI 40.0-49.9 Hyperlipidemia LDL goal <100 Depression Plantar fasciitis, left Chronic back pain Left axillary pain Enlarged lymph node Constipation Essential tremor Follow-up exam, 3-6 months since previous exam Wellness examination Encounter for screening colonoscopy Vasectomy evaluation Erectile dysfunction Gout Major depressive disorder in remission Morbid obesity Obstructive sleep apnea hypopnea, severe Low back pain Migraines Surgical History No pertinent past surgical history Family History Mother No problems noted. Father Mental health disorder Sister No problems noted. Other Substance use disorder Social History Household Members: Significant Other and Friend(s) Housing: Apartment Alcohol intake: current Alcohol intake frequency: a few times a month Alcohol type: wine Patient Tobacco Use Status: Never used Tobacco e-Cigarette/Vaping Use: Never Used Second Hand Smoke Exposure: No service: No Current occupational status: unemployed Cognitive needs: No Hearing needs: No Vision needs: Yes Review of Systems Const All systems reviewed & are unremarkable except as noted in HPI and below Reports no additional complaints Eyes Reports no additional complaints ENT Reports no additional complaints Card Reports no additional complaints Resp Reports no additional complaints GI Reports no additional complaints Reports as per HPI Musc Reports no additional complaints Skin/Breast Reports system reviewed and no additional complaints, except as documented Neuro Reports no additional complaints Psych Reports no additional complaints Endo Reports no additional complaints Wes/Lymph Reports no additional complaints Aller/Immun Reports no additional complaints Assessment & Plan Assessment & Plan (1) Erectile dysfunction: Code(s): N52.9 - Male erectile dysfunction, unspecified Category: Medical Plan Plan - Continue daily Cialis and consider adding 20 mg Cialis for sexual activity, not exceeding twice a week with at least three days in between doses. - Initiate testosterone replacement therapy with a daily gel, with follow-up blood work in three to four months to assess efficacy. - follow-up with nurse practitioner Norma Cartagena for continued testosterone replacement management - Schedule vasectomy scheduling the procedure with Dr. Morales. Orders: Orders Testosterone, Free/Total 10 Weeks N52.9 - Male erectile dysfunction, unspecified, R79.89 - Other specified abnormal findings of blood chemistry Patient Instructions: The patient had an opportunity to ask questions regarding treatment plan. The patient expressed understanding and agreement with the above treatment plan. The patient is aware they should contact our office by phone for worsening of their current condition or the appearance of new symptoms. Compliance is encouraged with any medications and followup testing that is ordered. It is a privilege to be allowed the opportunity to participate in the urologic care of your patient. If you have any questions or concerns regarding treatment for the above conditions please do not hesitate to contact me. The office telephone contact is [phone]. This note is constructed in part using voice recognition software. While every effort has been made to ensure accuracy hardware trainer errors may have been included. Yours sincerely, Odilia Wiley MD Scribe Plan - Not visible on output: Patient was informed and verbally consented to the use of an ambient scribe for clinic note documentation during this visit. Coding Level of Care Code Est Pt Level 4 (94686) Diagnoses Erectile dysfunction N52.9
== END 2024-11-12 15:01 | disposition home or self-care (01) ==
LOC: HO.HUSH 14:07
PROVIDERS: PCP Physician Assistant Medical; Visit Provider Urology
DX: N52.9 Male erectile dysfunction, unspecified (principal); Z13.9 Encounter for screening, unspecified
CPT/HCPCS: 99214

== ENCOUNTER → 2024-11-12 14:07 | Outpatient (BNVA) | payer OTHER, SELFPAY | PROVIDERS: PCP Physician Assistant Medical; Visit Provider Urology | DX: N52.9 Male erectile dysfunction, unspecified (principal) | CPT/HCPCS: 81003; 99212 ==

== ENCOUNTER 2024-12-03 13:59 | Outpatient (AMB) | payer OTHER, SELFPAY ==
[2024-12-03 14:03] VITALS: BP 118/72; PULSE 86; BMI 45.0
--- NOTE | 2024-12-03 14:03 | A.OFFVIS_ITS ---
Vital Signs 12/03/24 14:03 Height 6 ft 2 in Weight 350 lb 8.56 oz BMI 45.0 BP 118/72 Blood Pressure Location Lt brachial Position Sitting Pulse 86 Intake Visit Reasons: TALENT AGENT/Quijano/HTN/Tachy/Abnormal ECG/EKG Intake Note: New patient dx htn, tachy, abnormal ekg with ekg c/o some chest discomfort at times Certified Lactation Counselor Required: No Allergies azithromycin Adverse Reaction (Intermediate, Verified 11/12/24 14:31) stomach pain Medication List - Last Reconciled 12/03/24 by Everardo Starr MD acetaminophen ER (Tylenol 8 Hour) 1,300 mg (2 x 650 mg) PO Q12H ascorbic acid (vitamin C) 1,000 mg PO DAILY atorvastatin 10 mg PO BEDTIME bupropion HCl XL 300 mg PO QAM bupropion HCl XL 150 mg PO QAM calcium carbonate (Antacid (calcium carbonate)) 215 mg PO BID cholecalciferol (vitamin D3) 25 mcg PO DAILY colchicine 0.6 mg PO DAILY PRN gabapentin 100 mg PO TID PRN guanfacine ER 1 mg PO DAILY lidocaine 5% (Lidoderm) 1 patch topical DAILY lisinopril 10 mg PO DAILY mecobalamin (vitamin B12) (B12 Active) 1,000 mcg PO DAILY meloxicam 15 mg PO DAILY PRN metoprolol succinate ER 25 mg PO DAILY polyethylene glycol 3350 (Miralax) 17 grams PO DAILY PRN tadalafil 20 mg PO DAILY PRN tadalafil 5 mg PO DAILY testosterone (AndroGel) 1 packet transdermal DAILY zinc acetate 25 mg PO DAILY HPI Comments Details: Neeraj was referred here for evaluation for fast heart rate and right bundle- branch block. He has history of hypertension for few years, obstructive sleep apnea for which she uses CPAP, hyperlipidemia, morbid obesity. He has been trying to lose weight in his currently trying to lose weight with lifestyle modification. He has been somewhat successful. He was referred here because of tachycardia but since then was put on metoprolol therapy in his heart rate has settled down. His blood pressure has been well controlled as per him. He also noted to have right bundle-branch block and was referred here for further evaluation. He has no lightheadedness, syncope. No prolonged palpitation irregular heartbeat. He said he is pretty active for his age and weight and has no exertional chest pain or shortness of breath. He denies any heart failure symptoms, no orthopnea, PND, leg edema. [facility] Medical History Hypercholesteremia Anxiety Cervical radiculopathy Right shoulder pain Neck pain Lymphadenopathy, axillary Lymphedema Tick bite RBBB Sinus tachycardia Left axis deviation Obesity, morbid, BMI 40.0-49.9 Hyperlipidemia LDL goal <100 Depression Plantar fasciitis, left Chronic back pain Left axillary pain Enlarged lymph node Constipation Essential tremor Follow-up exam, 3-6 months since previous exam Wellness examination Encounter for screening colonoscopy Vasectomy evaluation Erectile dysfunction Gout Major depressive disorder in remission Morbid obesity Obstructive sleep apnea hypopnea, severe Low back pain Migraines Surgical History No pertinent past surgical history Family History Mother No problems noted. Father Mental health disorder Sister No problems noted. Other Substance use disorder Social History Household Members: Significant Other and Friend(s) Housing: Apartment Alcohol intake: current Alcohol intake frequency: a few times a month Alcohol type: wine Patient Tobacco Use Status: Never used Tobacco e-Cigarette/Vaping Use: Never Used Second Hand Smoke Exposure: No service: No Current occupational status: unemployed Cognitive needs: No Hearing needs: No Vision needs: Yes Review of Systems Const Denies chills, Denies daytime sleepiness, Denies fatigue, Denies fever(s), Denies frequent falls, Denies poor appetite, Denies snoring, Denies stops breathing during sleep, Denies weakness, Denies weight gain and Denies weight loss Eyes Denies loss of vision ENT Denies dizziness and Denies hearing loss Card Denies chest pain, Denies claudication, Denies leg edema, Denies lightheadedness, Denies palpitations, Denies dyspnea, Denies dyspnea on exertion and Denies orthopnea Resp Denies cough, Denies excessive phlegm production, Denies dyspnea, Denies dyspnea on exertion, Denies snoring and Denies wheezing GI Denies abdominal pain, Denies hematochezia, Denies change in bowel habits, Denies nausea and Denies vomiting Denies dysuria and Denies urinary frequency Musc Denies arthralgias, Denies muscle weakness, Denies numbness and Denies other (frequent falls) Skin/Breast Denies nail changes and Denies rash Neuro Denies Abnormal speech present, Denies dizziness, Denies frequent falls, Denies loss of vision, Denies memory loss, Denies numbness and Denies weakness Psych Denies depression and Denies memory loss Endo Denies fatigue and Denies palpitations Wes/Lymph Reports easy bruising and Reports other (anemia) Aller/Immun Denies wheezing Physical Exam Vital Signs: Last Vital Signs Pulse 86 12/03/24 14:03 BP 118/72 12/03/24 14:03 BMI result Body Mass Index 45.0 Const General: cooperative, comfortable, no acute distress, alert, awake and Physically active Nutritional Appearance: obese Orientation/consciousness: patient oriented x3 Limitations: no limitations HEENT Head: Yes normocephalic and Yes atraumatic Neck Neck: Yes trachea midline, Yes supple and Yes no JVD Resp Effort & Inspection: normal respiratory effort Auscultation: clear to auscultation bilaterally Cardio Jugular venous distension: no JVD Palpation: normal PMI Rate: regular rate Rhythm: regular rhythm Heart sounds: S1 normal heart sound present, S2 normal heart sound present, no click, no gallops, no murmurs and no rubs GI Auscultation: normal bowel sounds Skin General skin exam: no rashes or lesions noted Neuro General: patient oriented x3 and no focal motor deficits Speech: No Abnormal speech present Extrem General: Yes no pedal edema Psych Appearance: grossly normal Office Procedures EKG Details: EKG shows normal sinus rhythm with right bundle-branch block. [id number], Complete Assessment & Plan Assessment & Plan (1) RBBB: Code(s): I45.10 - Unspecified right bundle-branch block Category: Medical Plan: Patient with newly detected right bundle-branch block by EKG, completely asymptomatic at current point time. He has multiple risk factors for underlying structural heart disease including longstanding hypertension, obesity as well as sleep apnea. He also has hyperlipidemia. Need to rule out obstructive coronary artery disease as well as any other structural abnormalities. Will suggest a treadmill stress test to evaluate for myocardial ischemia. Also suggest an echocardiogram to evaluate for biventricular systolic function and right ventricular size as well as any other abnormality such as intracardiac shunting that may explain his right bundle-branch block. In absence of this we discussed about no negative prognostic issues with right bundle-branch block. Annual EKGs recommended at that point in time. I have also provided him with a copy of his EKGs were that he can keep it for his personal records for future comparison if he travels out of the area. (2) Hypertension: Code(s): I10 - Essential (primary) hypertension Category: Medical Plan: Hypertension which is currently well optimized on current medications. Importance of good blood pressure control was discussed. Continue current therapy with lisinopril and metoprolol which has settled down his heart rate as well. Continue CPAP therapy. He would benefit from aggressive weight loss program and consider GLP 1 antagonist treatment for him. He also has hyperlipidemia which is currently well optimized. If his stress test is within normal limits I would suggest him to pursue coronary calcium score to further assess risk and further guide therapy from medical perspective. He is agreeable and will think about it. Will follow up in the clinic if need be. Thank you for allowing me to partake in his care Orders: Orders CA echo transthorac w con 12/03/24 Everardo Starr MD I45.10 - Unspecified right bundle-branch block CA stress test 12/03/24 Everardo Starr MD I45.10 - Unspecified right bundle-branch block Medications: Changed From gabapentin 100 mg PO TID 30 days 90 caps 1RF To gabapentin 100 mg PO TID PRN Mitzi Quijano PA-C Coding Level of Care Code New Pt Level 4 (32223) Complex EM visit Add On G2211 Diagnoses RBBB I45.10 Hypertension I10 CPT Codes EKG - CPT: 93131-Ikikqrxntjpcxsydk, Complete ([id number])
--- OUTSIDE RECORDS SUMMARY | 2024-12-03 14:43 | XMS_ITS | Clinical Summary ---
Author Organization [facility] Address [address] [place] [id number] Phone Care Team Providers Care Inspector Dials Name Role Phone Leslie Galindo Christi CARREON Unavailable [phone] Angelito Lee MD Unavailable [phone] Unknown, Unknown Primary Care Provider Pamela villanueva Allergies Active Allergy Reactions Criticality Noted Date Comments Azithromycin 05/04/2017 Medications lactobacillus rhamnosus, GG, (CULTURELLE) 10 billion cell capsule 1 cap(s) 7 Active ibuprofen (ADVIL,MOTRIN) 200 MG tablet 1 tab Active ascorbic acid, vitamin C, (VITAMIN C) 100 MG tablet Active cholecalciferol (VITAMIN D3) 1,000 unit tablet Take 1,000 Units by mouth daily. Active sildenafil (VIAGRA) 50 mg tabletIndications :Erectile dysfunction, unspecified erectile dysfunction type Take 1 tablet (50 mg total) by mouth daily as needed. 10 tablet 9 Active Medication-Free Text Tart camacho and grape seed supplement Active COLCRYS 0.6 mg tablet Take 2 tabs at onset of gout symptoms, take 1 tab 1 hour later 30 tablet 1 Active triamcinolone acetonide 0.5 % cream Apply topically 2 (two) times a day for 14 days. 30 g 1 Active dextroamphetamine -amphetamine (ADDERALL) 5 mg TabIndications:At tention deficit hyperactivity disorder (ADHD), combined type Take 1 tablet (5 mg total) by mouth 2 (two) times a day. 56 tablet 1 Active buPROPion (WELLBUTRIN XL) 300 MG ER 24 hr tabletIndications :Mild episode of recurrent major depressive disorder TAKE ONE TABLET BY MOUTH EVERY MORNING 30 tablet 2 Active Active Problems Problem Noted Date Diagnosed Date Blepharitis 11/24/2020 Assessment & Plan (11/24/2020 3:09 PM EDT): Discussed baby shampoo to area, OTC remedies Erectile dysfunction 02/21/2019 Assessment & Plan (02/21/2019 5:32 PM EDT): This is not a common side effect of bupropion, unlike the SSRIs. Pt is struggling w fatigue from working 3rd shift so I think the ED is more likely sequale of that. He can use viagra as needed. He will FU w me if this worsens or fails to improve. Mild episode of recurrent major depressive disor kim 08/04/2017 Overview (11/24/2020): therapy at [facility] in past Assessment & Plan (03/23/2021 9:19 PM EST): Continue wellbutrin 300 mg Assessment & Plan (12/22/2020 3:47 PM EDT): Increase wellbutrin to 300 mg. He will message or call w an update in 4 weeks & FU OV in 3 mos. Call sooner if side effects Assessment & Plan (11/24/2020 3:10 PM EDT): Restart wellbutrin at 150 mg & titrate up to 300 mg. FU telemed 4 weeks Assessment & Plan (02/21/2019 5:26 PM EDT): Continue bupropion. FU 6 months Assessment & Plan (10/31/2018 5:38 PM EDT): FMLA form completed. Recommend 4 week leave. Continue therapy weekly. FU w me in 2 weeks, unless he's gotten in w psychiatrist. Continue current dose of wellbutrin. Assessment & Plan (10/24/2018 8:30 AM EDT): Recommend increase wellbutrin to 450 mg. Contiue melatonin for insomnia. Continue therapy. Given some names of psychiatric pre scribers. FU 1 week, we can do [place] paperwork at that time. Assessment & Plan (12/28/2017 4:47 PM EDT): He will continue therapy at [facility]. Exercise, practice self care. continue wellbutrin. Encouraged to go for ADD eval. FU 6 mos Assessment & Plan (09/28/2017 5:32 AM EDT): Increase wellbutrin to 300 mg. FU 3 mos or sooner if problems. Again reviewed possible ADRs ADD (attention deficit disorder) 05/05/2017 Overview (03/23/2021): Dx by psychologist Jahaira aggravated insomnia Wellbutrin helps mood & motivation but not attention deficit Assessment & Plan (03/23/2021 9:20 PM EST): Try adderall 5 mg q am w food. Can titrate up to 10 mg qam if not causing insomnia Left shoulder pain 05/05/2017 Low back pain 05/05/2017 Assessment & Plan (11/24/2020 3:11 PM EDT): Stable. Encouraged regular exercise & stretching. Anxiety 05/04/2017 GERD (gastroesophageal reflux disease) 7 Gout 05/04/2017 Assessment & Plan (11/24/2020 3:09 PM EDT): Will check uric acid level. Can start allopurinol if he wishes. Colcrys refilled. Irritable bowel syndrome 05/04/2017 Assessment & Plan (11/24/2020 3:10 PM EDT): Stable Obesity 05/04/2017 Plantar fasciitis 05/04/2017 Schamberg disease 05/04/2017 Immunizations Immunization Administration Dates Next Due COVID-19 (Pre-02/28) Buddy Vaccine, [id number], PF 08/11/2020 Influenza Quadrivalent Preservative Free IM 02/06,01/25/2017,04/06/2016 Influenza Recombinant Will valent Preservative Free IM 02/21/2019 Tdap 08/04/2017 Family History Medical History Relation Comments Bipolar disorder Father Colon polyps Father Hypertension Father Hypertension Maternal Grandfather Parkinson's disease Maternal Grandfather Alzheimer's disease Maternal Grandmother Breast cancer Maternal Grandmother Rheumatoid arthritis Mother No Known Problems Paternal Grandfather CV disease Paternal Grandmother Preeclampsia Sister Relation Status Comments Father Alive Maternal Grandfather Maternal Grandmother Mother Alive Paternal Grandfather Paternal Grandmother Sister Alive Social History Tobacco Use Types Packs/Day Years Used Date Smoking Tobacco: Never Smokeless Tobacco: Never Alcohol Use Standard Drinks/Week Comments Yes 0 (1 standard drink = 0.6 oz pur e alcohol) 0-1 Child or Family Care Answer Date Record ed Do you have problems with on e of the following making it difficult for you to work, study, or receive health care? Yes 11/24/2020 Education Answer Date Recorded Are you interested in more education? Not on dipak e 11/30/2022 Are you concerned about learning? Not on file 11/30/2022 No 11/30/2022 No 11/30/2022 Food Answer Date Recorded Within the past 6 months we worried whether our food would run out before we got money to buy more. Never True 11/24/2020 Within the past 6 months the food we bought just didn't last and we didn't have enough money to get more. Never True Residential Stability Answer Date Recor ded What is your housing situation today? I have dick sing 11/24/2020 How many times have you move d in the past 12 months? Zero (I did not move) 11/24/2020 06 Are you worried that in t he next 2 months, you may not have your own housing to live in? No 11/24/2020 Paying for Meds Answer Date Recorded Do you have trouble paying for medicines? No 11/24/2020 Paying Utility Bills Answer Date Record ed Do you have trouble paying your heating or elect ricity bill? No 11/24/2020 Transportation Answer Date Recorded Has the lack of transportati on kept you from medical appointments or from getting medications? No 11/24/2020 Unemployment Answer Date Recorded Are you currently unemployed or working on a part-time or temporary basis, and looking for work? Yes 11/24/2020 Digital Access Answer Date Recorded No 10/04/2022 No 10/04/2022 Reliable internet access at home? Not on file 10/04/2022 Device with a working camera? Not on file Sex and Gender Information Value Date Recorded Sex Assigned at Not on file Legal Sex Male 9:24 PM EDT Gender Identity Not on file Sexual Orientation Not on file Last Filed Vital Signs Vital Sign Reading Time Taken Comments Blood Pressure 132/76 11/24/2020 2:29 PM EDT Pulse 92 11/24/2020 2:29 PM EDT Temperature 36.6 C (97.9 F) 11/24/2020 2:29 PM EDT Respiratory Rate - - Oxygen Saturation 97% 11/24/2020 2:29 PM EDT Inhaled Oxygen Concentration - - Weight 166.1 kg (366 lb 3.2 oz) 11/24/2020 2:29 PM EDT Height 188 cm (6' 2.02 ) 03/23/2021 4:00 PM EST Body Mass Index 47.02 11/24/2020 2:29 PM EDT Plan of Treatment Health Maintenance Due Date Last Done Comments HEPATITIS A VACCINES (1 of 2 - Risk 2-dose series) 1997 DEPRESSION SCREENING 11/22/2019 11/21/2018 LIPID PANEL 11/22/2023 11/21/2018, 01/25/2017 COLOGUARD 11/30/2023 COLONOSCOPY 11/30/2023 COLORECTAL CANCER SCREENING 11/30/2023 FIT TEST 11/30/2023 FOBT 11/30/2023 SIGMOIDOSCOPY 11/30/2023 VIRTUAL COLONOSCOPY 11/30/2023 COVID-19 VACCINE (2 - 2023-2 5 season) 2024 08/11/2020 Adult Td,Tdap Booster 08/05/2027 08/04/2017 HEPATITIS C SCREENING Completed 11/21/2018 , 08/04/2017 HIV ONE-TIME SCREENING (18-6 5 YEARS) Completed 11/24/2020 SMOKING STATUS SCREENING (On ce After 26 Yrs) Completed 03/23/2021 HIB VACCINES Aged Out No longer eligi ble based on patient's age to complete this topic MENINGOCOCCAL VACCINES (ACWY) Aged Out No longer eligible based on patient's age to complete this topic MENINGOCOCCAL VACCINES (B) Aged Out N o longer eligible based on patient's age to complete this topic PNEUMOCOCCAL VACCINES (0-49 years) Aged Out No longer eligible b ased on patient's age to complete this topic Medical Devices Not on file Procedures Procedure Name Priority Date/Time Associated Diagnosis Comments LIPID PANEL Routine 11/21/2018 10:09 AM EDT Class 3 severe obesity due to excess calories without serious comorbidity with body mass index (BMI) of 40.0 to 44.9 in adult HEPATITIS C ANTIBODY, QUALITATIVE Routine 11/21/2018 10:09 AM EDT Routine screening for STI (sexually transmitted infection) from Last 3 Months or Most Recently Relevant to Health Maintenance Results * Hepatitis C antibody, qualitative (11/21/2018 10:09 AM EDT) HCV Negative Negative [facility] Comment: This is a screening test and should be confirmed with molecular testing Blood 11/21/2018 10:0 9 AM EDT 11/21/2018 10:11 AM EDT Leslie Galindo [facility] BLOOD ORDERABLES Final Result [address] [address] * (ABNORMAL) Lipid panel (11/21/2018 10:09 AM EDT) HDL 35 mg/dL [facility] Comment: Interpretation <40 mg/dL: Low HDL cholesterol (major risk factor for CHD) Greater than or equal to 60 mg/dL: High HDL cholesterol ( negative risk factor for CHD) HDL - cholesterol is affected by a number of factors, e.g. smoking, excerise, hormones, sex and age. CHOLESTEROL 154 0 - 240 mg/dL [facility] TRIGLYCERIDES 181(H) 30 - 160 mg/dL [facility] LDL 83 50 - 129 mg/dL [facility] Comment: LDL levels in terms of risk for coronary heart disease: <100 mg/dL: Optimal 100-129 mg/dL: Near or above optimal 130-159 mg/dL: Borderline high 160-189 mg/dL: High >190 mg/dL: Very High CARDIAC RISK RATIO 4.4 3.4 - 5.0 C [facility] Blood 11/21/2018 10:0 9 AM EDT 11/21/2018 10:11 AM EDT us Leslie Galindo [facility] BLOOD ORDERABLES Final Result [facility] [address] [place], [place] [id number] from Last 3 Months or Most Recently Relevant to Health Maintenance Insurance [place] [place] [address] [place] [address] [place] [address] [place] [address] [employer] Care Teams Inspector Dials Relationship Specialty Start Date End Date Unknown, Unknown, PCP - General 08/04/23 Leslie Galindo, VELMA [address] [facility], [address] [place] [address] [email or web address] Historical LMR Provider 11/14/20 Angelito Lee MD [address] [place] [phone] Insurance Assigned Provider Internal Medicine 11/14/20 Additional Source Comments The information contained in this document represents components of the legal health record. It is not the complete legal health record.[facility]
== END 2024-12-03 16:27 | disposition home or self-care (01) ==
LOC: HO.HCS 14:00
PROVIDERS: PCP Physician Assistant Medical; Visit Provider Internal Medicine Cardiovascular Disease
DX: I45.10 Unspecified right bundle-branch block (principal); I10 Essential (primary) hypertension
CPT/HCPCS: 93010; 99204; G2211

== ENCOUNTER → 2024-12-03 13:59 | Outpatient (BNVA) | payer OTHER, SELFPAY | PROVIDERS: PCP Physician Assistant Medical; Visit Provider Internal Medicine Cardiovascular Disease | DX: I10 Essential (primary) hypertension (principal); I45.10 Unspecified right bundle-branch block; R94.31 Abnormal electrocardiogram [ECG] [EKG] | CPT/HCPCS: 93005; 99202 ==

== ENCOUNTER 2024-12-10 10:11 | Outpatient (RCR) | payer OTHER, SELFPAY ==
--- NOTE | 2024-10-16 16:06 | MHC.PT.EP ---
[facility] [place] Office [place] Office [place] [facility] [address] [phone] F: [phone] F: [phone] F: [phone] F: [phone] Physical Therapy Plan of Care Date of Evaluation: 10/16/24 Date of Surgery: Diagnosis: Dorsalgia, chronic back pain (MD Dx) RIGHT cervical radiculopathy and RIGHT shoulder subacromial impingement syndrome (PT Dx) RS Assessment: Neeraj is a pleasant, motivated 43 y.o. male who is referred to PT by Mitzi Quijano PA-C, with Dx of dorsalgia, chronic back pain LEFT plantar fascial fibromatosis. Focus will be on cervical spine symptoms. PT diagnosis is RIGHT cervical radiculopathy and RIGHT shoulder subacromial impingement syndrome. He presents with poor posture leading to neck and shoulder girdle muscle imbalanes, radiculopathy in R UE, limited cervical spine AROM, limited RIGHT shoulder AROM, weakness in scapular musculature and RIGHT shoulder. Patient current functional limitations are some neck movements, reaching overhead, lifting with R UE, carrying items like groceries in R hand, difficulty sleeping, prolonged sitting, driving (holding wheel), looking over shoulders. Patient will benefit from skilled PT to address aforementioned impairments and functional limitations to meet established goals. Frequency and Duration: The patient will be seen 2x/week for 4 weeks Short Term Goals: 2 weeks Patient demonstrates consistency and independence with HEP to self manage symptoms. Patient demonstrates understanding of centralization versus peripheralization of UE symptoms. Meat Lugger Goals: 4 weeks Patient presents with increased cervical spine rotation 70 degrees bilaterally to look over shoulders easily when driving. Patient presents with increased shoulder strength middle trapezius 4/5 to be able to lift and carry groceries without symptoms. Treatment Plan: Modalities to reduce pain, spasms and effusion. Manual therapy to restore motion and function. Therapeutic exercise to improve strength and flexibility. Neuromuscular re-education for posture and balance. Therapeutic activities to return to functional activities of daily living. Electronically signed by: Matt Garcia, PT, DPT Please sign and return to therapist. Thank you for your referral.
--- NOTE | 2024-12-10 12:41 | MHC.PT.DC ---
[facility] [place] Office [place] [facility] [place] [facility] [address] Oanh Blair [address] [phone] F: [phone] F: [phone] F: [phone] F: [phone] Physical Therapy Discharge Report Diagnosis: Dorsalgia, chronic back pain (MD Dx) RIGHT cervical radiculopathy and RIGHT shoulder subacromial impingement syndrome (PT Dx) RS Date of Surgery: Date of Evaluation: 10/16/24 Date of Discharge: 12/10/24 Treatments to Date: 17 Cancellations to Date: No Shows to Date: Discharge Status: Achieved Goals Improved Function Independent with HEP Discharge Summary: Neeraj presents with reduction in familiar pain in neck and upper back. He now experiences intermittent R UE radicular symptoms. His posture is improved and I measure increased AROM without pain today and increased UE strength with only mild pain/pulling into R UE shoulder flexion. He agrees to discharge today to continue to maintain gains made in PT with independent HEP. Electronically signed by: Matt Garcia, PT, DPT Please sign and return to therapist. Thank you for your referral.
== END 2024-12-10 12:42 | disposition home or self-care (01) ==
LOC: HO.PT 10:11
PROVIDERS: PCP Physician Assistant Medical; Visit Provider Physician Assistant Medical
DX: M54.9 Dorsalgia, unspecified (principal); G89.29 Other chronic pain; M72.2 Plantar fascial fibromatosis
CPT/HCPCS: 97012; 97110; 97140; 97162; 97530

== ENCOUNTER 2024-12-22 08:26 | Outpatient (REF) | payer OTHER, SELFPAY ==
[2024-12-27 19:33] LABS: Testosterone, Free 42.9 pg/mL (35.0-155.0)
== END 2024-12-22 08:27 | disposition home or self-care (01) ==
LOC: HO.LAB 08:26
PROVIDERS: PCP Internal Medicine; Visit Provider Urology
DX: N52.9 Male erectile dysfunction, unspecified (principal); R79.89 Other specified abnormal findings of blood chemistry
CPT/HCPCS: 36415; 84402; 84403

== ENCOUNTER 2024-12-26 14:49 | Outpatient (AMB) | payer OTHER, SELFPAY ==
--- NOTE | 2024-12-26 15:15 | A.OFFVIS_ITS ---
Intake Visit Reasons: vasectomy Intake Note: Patient presents today for Vasectomy Urology Medication:none Blood Thinner:none Antibiotic Allergies: Azithromycin Multimedia Services Manager Required: No Accompanied by: Self / Same As Patient Allergies azithromycin Adverse Reaction (Intermediate, Verified 12/26/24 15:16) stomach pain HPI Comments Details: 12/31 testosterone labs are still pending Here for vasectomy today Recommend trial of testosterone anabaptism Clomid prescription provided for 7 day stim test 11/12/2024--last visit 07/16/2024 started on Cialis History of Present Illness - The patient is a 43-year-old male presenting with concerns regarding erectile dysfunction and low testosterone levels. - Erectile dysfunction was initially evaluated on 07/16/24, and the patient was started on daily Cialis. - The patient reports some improvement with Cialis but continues to experience dysfunction issues, estimating a 50% or less improvement. - Blood work on 11/05/24 showed low normal total testosterone at 293 and free testosterone below normal at 31. - PSA levels were normal at 0.28. - The patient is considering a vasectomy and is aware of the procedure options available. Results - Labs: Total testosterone 293 (low normal), free testosterone 31 (below normal), PSA 0.28 (normal) on 11/05/24. Plan Continue daily Cialis and consider adding 20 mg Cialis for sexual activity, not exceeding twice a week with at least three days in between doses. - Initiate testosterone replacement therapy with a daily gel, with follow-up blood work in three to four months to assess efficacy. - follow-up with nurse practitioner Norma Cartagena for continued testosterone replacement management - Schedule vasectomy scheduling the procedure with Dr. Morales. 07/16/24-Neeraj is a 43-year-old male presenting with a request for vasectomy and concerns regarding erectile dysfunction. He is confident in his decision to pursue a vasectomy due to a lack of desire for future procreation, demonstrating awareness of the procedure's permanence and the subsequent fertility implications if attempted reversal. He acknowledges the need for semen analysis post-procedure. Vasectomy procedure was discussed at length with the patient. He was informed that vasectomy is a safe, permanent, and effective form of control but there are risks involved. It may involve risk of hematoma, procedure failure which is rare, sperm granuloma which may cause mild pain, and congestion which may cause sense of pressure and generally resolves after several weeks. Also discussed is the reported post vasectomy pain syndrome with chronic testicular pain which is uncommon <5% The patient was advised that it is necessary to use other types of control methods for > 12 weeks and until w e send semen for analysis to make sure there is no more sperm in the semen. For erectile dysfunction, the patient identifies challenges in maintaining erections, observing a decline over several years with occasional morning erections still occurring. Back pain appears to be a contributing factor. The patient has not explored any pharmacologic interventions up to this point and is open to trialing a daily tadalafil regimen, aimed at sustaining erectile function. An investigation into testosterone levels and related hormones is planned, with attention to insurance coverage for medications through pharmacy discount programs. He denies previous treatments or consultations for his erectile concerns. Results - Labs: Plan for blood work to assess testosterone and related hormonal levels with a fasting requirement. COUNTS INCLUDE 234 BEDS AT THE [facility] Medical History Hypercholesteremia Anxiety Cervical radiculopathy Right shoulder pain Neck pain Lymphadenopathy, axillary Lymphedema Tick bite RBBB Sinus tachycardia Left axis deviation Obesity, morbid, BMI 40.0-49.9 Hyperlipidemia LDL goal <100 Depression Plantar fasciitis, left Chronic back pain Left axillary pain Enlarged lymph node Constipation Essential tremor Follow-up exam, 3-6 months since previous exam Wellness examination Encounter for screening colonoscopy Vasectomy evaluation Erectile dysfunction Gout Major depressive disorder in remission Morbid obesity Obstructive sleep apnea hypopnea, severe Low back pain Migraines Surgical History No pertinent past surgical history Family History Mother No problems noted. Father Mental health disorder Sister No problems noted. Other Substance use disorder Social History Household Members: Significant Other and Friend(s) Housing: Apartment Alcohol intake: current Alcohol intake frequency: a few times a month Alcohol type: wine Patient Tobacco Use Status: Never used Tobacco e-Cigarette/Vaping Use: Never Used Second Hand Smoke Exposure: No service: No Current occupational status: unemployed Cognitive needs: No Hearing needs: No Vision needs: Yes Review of Systems Const Denies chills and Denies fever(s) Card Reports no additional complaints and Denies syncope Resp Denies cough GI Denies abdominal pain and Denies heartburn Reports as per HPI and Denies change in libido Neuro Denies syncope Psych Denies change in libido Endo Denies change in libido Physical Exam Const General: cooperative, healthy appearing, comfortable and no acute distress Orientation/consciousness: patient oriented x3 HEENT Face and sinus: Yes normal facial exam Mouth: moist mucous membranes Neck Neck: Yes normal visual inspection, Yes full ROM and Yes trachea midline Chest Chest palpation & inspection: normal inspection of the chest Resp Effort & Inspection: normal respiratory effort, able to speak in complete sentences and no respiratory distress GI Inspection: Yes normal to inspection Back/Spine/Pelvis Cervical Spine: normal cervical lordosis Thoracic/Lumbar Spine: thoracic and lumbar spine normal to inspection Skin General skin exam: no rashes or lesions noted Neuro General: patient oriented x3, gait normal, tone normal and moves all extremities Extrem General: Yes normal to inspection and Yes capillary refill normal Office Procedures Vasectomy Details: Preoperative diagnosis: Anxiety regarding Postoperative diagnosis: Anxiety regarding unplanned Procedure: Bilateral vasectomy Informed consent had been completed. Preoperative and postoperative instructions were provided to the patient. The patient has transportation to home identified at the completion of the procedure. Anti-anxiolytic prescription medication had been taken after consent verification and all questions answered. Tylenol with Codeine pain medication was also provided. The penis was elevated using a rubber band that was attached to the patient's shirt. Both vasa were palpated through the skin using a 3 finger technique and the penoscrotal junction was prepped with Betadine. After Betadine application the left vas was elevated using a 3 finger grasping technique. 1% lidocaine was used to create a subdermal bubble. Further anesthetic was then advanced using the 25-gauge needle along the vasa in a proximal fashion. Approximately 2 minutes were allowed to for local anesthetic uptake. Using the sharp spreading instrument the scrotal skin was spread longitudinally in line with the vasa until the subdermal layer had been divided. The vasa was then elevated from the scrotum using a ring clamp. Care was taken to elevate the superior portion of the vasa by rotating the ring clamp in a caudad direction. The battery powered cautery was used to divide the vasal sheath in a longitudinal direction on the exposed vasa and to strip the vasal sheath from the vasa. A 2nd narrower ring clamp was placed on the exposed vas and used to lift the vas from the vasal sheath. so it grasped the elevated vas. The cautery was used to divide vasal attachments and allow full exposure of a small loop of vasa. The sharp spreading instrument was then used to create a tunnel under the vasa and spread to allow the blood vessels of the vasa to retract from the vasa. A mosquito clamp was placed on the proximal portion of the vas. The battery- powered cautery was used to make a partial division in the proximal vas and then inserted in order to cauterize the proximal end of the vas. This was then cut and allowed to retract into the vasal sheath. The mosquito was then used to twist the vasa 180 degrees creating a fascial interposition. Using a 4-0 chromic suture the fascial interposition was sutured closed. The distal portion of the vas was then cut in order to obtain a segment of vasa. The vasa were allowed to retract back into the scrotum. A small snap was then used to approximate the skin edges and allow hemostasis without placement of a suture. A similar procedure was repeated on the right side. He tolerated the procedure well. Triple antibiotic was applied. A gauze was applied. An ice pack was applied to assist with minimizing swelling. Postoperative instructions were confirmed. He understands the need to continue to use control methods. A semen sample should be brought for inspection under the microscope in 10-12 weeks. CPT 79235 Vasectomy performed by: Larry Morales [id number] - Vasectomy Office Meds lidocaine (PF) 10 mg/mL (1 %) injection solution Performing Provider: Larry Morales MD [place]forming Location[place] [facility] [place] [facility] Administered by: Dolly Root RN on 12/26/24 15:45 Dose Route Admin Location Dispensed Lot Number Expiration Date [facility] [employer] 2 mL Infiltration 10 mL Total Dispensed Waste 10 mL 0 % Assessment & Plan Assessment & Plan (1) Erectile dysfunction: Code(s): N52.9 - Male erectile dysfunction, unspecified Category: Medical (2) Low testosterone: Code(s): R79.89 - Other specified abnormal findings of blood chemistry Category: Medical Plan Testosterone stim test Orders: Orders Testosterone, Total Today R7 - Other specified abnormal findings of blood chemistry Lutenizing Hormone Today R79.89 - Other specified abnormal findings of blood chemistry AMB Vasectomy Today Z30.09 - Encounter for other general counseling and advice on contraception Follicle Stimulating Hormone Today R79.89 - Other specified abnormal findings of blood chemistry Estrad Free (Tot Ultra + Free) Today R7 - Other specified abnormal findings of blood chemistry Sex Hormone Binding Globulin Today R7. - Other specified abnormal findings of blood chemistry Medications: New clomiphene citrate Take 2 tablets daily for 7 days and complete lab work on day 8 [id number] [facility] [id number] 100 mg (2 x 50 mg) PO DAILY 14 tabs 0RF 7 days E29.1 - Testicular hypofunction Patient Instructions: This note is constructed using voice recognition software. While every effort has been made to ensure accuracy underwriting internship errors may have been included. Imaging studies, laboratory and physical exam results were discussed and reviewed in detail. No major barriers to patient understanding were identified. An opportunity to ask questions regarding the treatment plan was provided. All questions were answered. The patient expressed understanding and agreement with the above treatment plan. The patient is aware they should contact our office by phone for worsening of their current condition or the appearance of new urologic symptoms. Compliance is encouraged with any medications and followup testing that is ordered. It is a privilege to participate in the urologic care of your patient. If you have any questions or concerns regarding treatment for the above conditions, or other urologic issues, please do not hesitate to contact me. The office telephone contact is [phone]. Sincerely, Dr Larry Morales MD, [facility] - Urology Compassionate Specialist Care for the Genitourinary System Coding Level of Care Code Est Pt Level 3 (97499) Diagnoses Erectile dysfunction N52.9 Low testosterone R79.89 CPT Codes Office Procedure - CPT: 49152 - Vasectomy ([id number])
--- OUTSIDE RECORDS SUMMARY | 2024-12-26 15:45 | XMS_ITS | Clinical Summary ---
Author Organization [facility] Address [address] [place] [address] Phone Care Team Providers Care Route Relief Driver Name Role Phone Leslie Galindo Christi CARREON Unavailable [phone] Angelito Lee MD Unavailable [phone] Unknown, Unknown Primary Care Provider Pameal villanueva Allergies Active Allergy Reactions Criticality Noted [...] disor kim 08/04/2017 Overview (11/24/2020): therapy at [facility] in past Assessment & Plan (03/23/2021 [...] PM EDT): He will continue therapy at [facility]. Exercise, practice self care. continue wellbutrin. [...] (11/21/2018 10:09 AM EDT) HCV Negative Negative [facility] Comment: This is a screening test and should be confirmed with molecular testing Blood 11/21/2018 10:0 9 AM EDT 11/21/2018 10:11 AM EDT Leslie Galindo [facility] BLOOD ORDERABLES Final Result [address] [address] * (ABNORMAL) Lipid panel (11/21/2018 10:09 AM EDT) HDL 35 mg/dL [facility] Comment: Interpretation <40 mg/dL: Low HDL cholesterol (major risk factor for CHD) Greater than or equal to 60 mg/dL: High HDL cholesterol ( negative risk factor for CHD) HDL - cholesterol is affected by a number of factors, e.g. smoking, excerise, hormones, sex and age. CHOLESTEROL 154 0 - 240 mg/dL [facility] TRIGLYCERIDES 181(H) 30 - 160 mg/dL [facility] LDL 83 50 - 129 mg/dL [facility] Comment: LDL levels in terms of risk for coronary heart disease: <100 mg/dL: Optimal 100-129 mg/dL: Near or above optimal 130-159 mg/dL: Borderline high 160-189 mg/dL: High >190 mg/dL: Very High CARDIAC RISK RATIO 4.4 3.4 - 5.0 [facility] Blood 11/21/2018 10:0 9 AM EDT 11/21/2018 10:11 AM EDT us Leslie Galindo [facility] BLOOD ORDERABLES Final Result [facility] [address] [place], [place] [id number] from Last 3 Months or Most Recently Relevant to Health Maintenance Insurance [place] [address] [place] [address] [place] [address] [place] [address] [employer] Care Teams Route Relief Driver Relationship Specialty Start Date End Date Unknown, Unknown, PCP - General 08/04/23 Leslie Galindo, VELMA [address] [place] [address] [email or web address] LMR Provider 11/14/20 Angelito Lee MD [address] [place] [id number] Insurance Assigned Provider Internal Medicine 11/14/20 Additional Source Comments The information contained in this document represents components of the legal health record. It is not the complete legal health record.[facility]
== END 2024-12-26 16:17 | disposition home or self-care (01) ==
LOC: HO.HUSH 14:50
PROVIDERS: PCP Physician Assistant Medical; Visit Provider Urology
DX: Z30.2 Encounter for sterilization (principal); N52.9 Male erectile dysfunction, unspecified; R79.89 Other specified abnormal findings of blood chemistry; Z30.09 Encounter for other general counseling and advice on contraception
CPT/HCPCS: 55250; 99213

== ENCOUNTER → 2024-12-26 14:49 | Outpatient (BNVA) | payer OTHER, SELFPAY | PROVIDERS: PCP Physician Assistant Medical; Visit Provider Urology | DX: Z30.09 Encounter for other general counseling and advice on contraception (principal); N52.9 Male erectile dysfunction, unspecified; R79.89 Other specified abnormal findings of blood chemistry; F41.1 Generalized anxiety disorder | CPT/HCPCS: 55250; 99212; J2003 ==

== ENCOUNTER → 2025-01-21 08:09 | Outpatient (BNV) | payer OTHER, SELFPAY | PROVIDERS: PCP Physician Assistant Medical; Visit Provider Internal Medicine | DX: I42.2 Other hypertrophic cardiomyopathy (principal); I49.3 Ventricular premature depolarization; R06.02 Shortness of breath | CPT/HCPCS: 93016; 93018; 93320; 93325; 93350; 93352 ==

== ENCOUNTER → 2025-01-21 08:14 | Outpatient (REF) | payer OTHER, SELFPAY ==
--- NOTE | 2025-01-21 08:09 | CA_ITS ---
Acquisition Time: 2025-01-21 09:54:10 Total Exercise Time: 00:07:23 Test Indications: ABN EKG CP Medications: SEE H&P Protocol: SALLY Max HR: 144 BPM 82% of Pred: 174 BPM Max BP: 150/66 mmHG Max Work Load: 7.4 METS Exercise stress teest with exercise 7 mins 23 secs of Sally Protocol, with reduced speed at 2.5mph due to left foot tendonitis, achieving 82% MPHR, with reports of SOB, no chest pain, with isolated PVCs, with normotensive response to exercise. Without any EKG changes meeting criteria for ischemia. In recovery, breathing returned to baseline. Test reviewed with Dr. Jerome. Referred By: Everardo Starr Electronically Signed By: Lalo Johnson
--- NOTE | 2025-01-21 08:09 | CA_ITS ---
Transthoracic Echocardiogram Patient (Last, First, Middle): Neeraj Del Castillo, Gender: M Date of : 1980 Age: 44 Procedure Date: 01/21/2025 Procedure Type: Transthoracic Echocardiogram Location: OP Height: 187.96 cm Weight: 158.76 kg BSA: 2.76 m2 Heart Rate: bpm BP: 118 / 72 mmHg Manager Primary Care: EFRAIN Referring MD: Everardo Starr MD Symptoms: I45.10 - Unspecified right bundle-branch block Study Quality: Technically Difficult, contrast ECG Rhythm: Sinus Conclusions: - The left ventricular systolic function is normal. The calculated ejection fraction is 69% by biplane method. - No obvious valvular pathology seen on this study. Findings Left Ventricle Normal left ventricular cavity size. The left ventricular systolic function is normal. The calculated ejection fraction is 69% by biplane method. There is no evidence of regional wall motion abnormalities. Diastolic function is normal for age. There is mild septal asymmetric hypertrophy. Right Ventricle Normal right ventricular cavity size and systolic function. Atria Both atria are normal in size. Aortic Valve The aortic valve was not well visualized. There is no aortic valve stenosis. There is no aortic valve regurgitation. Mitral Valve The mitral valve appears normal. There is no mitral valve regurgitation. There is no mitral valve stenosis. Pulmonic Valve The pulmonic valve is likely normal. Tricuspid Valve There is trace tricuspid valve regurgitation. Tricuspid regurgitation envelope is inadequate for calculation of right ventricular systolic pressure. Great Vessels The asc aorta and aortic arch are normal in size. Venous The inferior vena cava is normal in size and collapses greater than 50% with inspiration. Pericardium/Pleural There is no evidence of pericardial effusion. Prior Study Comparison No prior study available for comparison. Recommendations, Care & Conclusions No obvious valvular pathology seen on this study. Measurements 2D Linear Measurements IVSd: 1.16 0.6-0.9/0.6-1.0 cm LVIDd: 4.61 3.9-5.3/4.2-5.9 cm LVIDd Index: 1.67 2.4-3.2/2.2-3.1 cm/m2 LVIDs: 3.04 2.0-3.6 cm LVPWd: 0.80 0.7-1.1 cm LA Diam: 2.90 2.7-3.8/3.0-4.0 cm LAIDs Index: 1.05 1.5-2.3 cm/m2 LV Mass: 192.37 67-162/88-224 g LV Mass Index: 69.70 43-95/49-115 g/m2 LVOT Diam: 2.10 3.0+(-)1.3 cm 2D Systolic Function EF 4C: 68.70 >55% EF 2C: 70.50 >55% EF BiP: 69.30 >55% Mitral Valve MV Pk E: 1.02 MV PK A: 0.73 MV Decel Time: 249.00 E/A: 1.40 E'Lateral: 12.70 E'Medial: 7.07 E/E' Med: 14.40 E/E' Lat: 8.00 PHT: 73.00 MVA PHT: 3.01 Decel [place]: 4.10 Aortic Valve AoV Pk Bradley: 1.79 AoV Mn Bradley: 1.27 AoV VTI: 0.36 AoV Pk Grad: 13.00 Aov Mn Grad: 7.00 PABLO Cont.VTI: 2.70 LVOT LVOT Pk Bradley: 1.52 LVOT Mn Bradley: 0.95 LVOT VTI: 0.28 LVOT Pk Grad: 9.00 LVOT Mn Grad: 4.00 LVOT Diam: 2.10 LVOT Area: 3.46 Diastolic Function MV Pk E: 1.02 MV Pk A: 0.73 E/A: 1.40 E'Medial: 7.07 E/E' Med: 14.40 E' Laterial: 12.70 E/E' Lat: 8.00 Right Ventricle TAPSE (mm): 30.60 TVS' Bradley: 13.90 Tricuspid Valve RA Press: 3.00 Great Vessels Aorta Sinus of Valsalva: 3.59 2.0-3.5 cm Ao Asc: 3.40 2.1-3.4 cm Ao Arch: 3.40 Updated in Other Vendor System with Status of Final Griffin Jerome MD electronically signed on 01/21/2025 10:26:06 AM with status of Final
== END ==
LOC: HO.CARD 08:14
PROVIDERS: PCP Physician Assistant Medical; Visit Provider Internal Medicine Cardiovascular Disease
DX: I45.10 Unspecified right bundle-branch block (principal)
CPT/HCPCS: 93017; 93306; Q9957

== ENCOUNTER 2025-01-24 15:27 | Outpatient (AMB) | payer OTHER, SELFPAY ==
[2025-01-24 15:37] VITALS: BP 122/80; PULSE 89; O2SAT 97; BMI 46.0
--- NOTE | 2025-01-24 15:37 | MHC.OFFVIS ---
Vital Signs 01/24/25 15:37 Height 6 ft 2 in Weight 358 lb 4.019 oz BMI 46.0 BP 122/80 Blood Pressure Location Lt brachial Position Sitting Pulse 89 Pulse Source Pulse Oximeter Pulse Oximetry (%) 97 Oxygen Delivery Method Room Air Intake Visit Reasons: Obstructive sleep apnea Intake Note: pt is here for follow up and states he is doing well but he is having issue with back and shouder which sometimes affect usage. Diagnostic Radiologic Technologist Required: No Allergies azithromycin Adverse Reaction (Intermediate, Verified 01/24/25 15:49) stomach pain Medication List - Last Reconciled 01/24/25 by Eusebio Rashid MD acetaminophen ER (Tylenol 8 Hour) 1,300 mg (2 x 650 mg) PO Q12H ascorbic acid (vitamin C) 1,000 mg PO DAILY atorvastatin 10 mg PO BEDTIME bupropion HCl XL 300 mg PO QAM bupropion HCl XL 150 mg PO QAM calcium carbonate (Antacid (calcium carbonate)) 215 mg PO BID cholecalciferol (vitamin D3) 25 mcg PO DAILY clomiphene citrate 100 mg (2 x 50 mg) PO DAILY 7 days colchicine 0.6 mg PO DAILY PRN gabapentin 100 mg PO TID PRN guanfacine ER 1 mg PO DAILY lidocaine 5% (Lidoderm) 1 patch topical DAILY lisinopril 10 mg PO DAILY mecobalamin (vitamin B12) (B12 Active) 1,000 mcg PO DAILY meloxicam 15 mg PO DAILY PRN metoprolol succinate ER 25 mg PO DAILY polyethylene glycol 3350 (Miralax) 17 grams PO DAILY PRN tadalafil 20 mg PO DAILY PRN tadalafil 5 mg PO DAILY testosterone (AndroGel) 1 packet transdermal DAILY zinc acetate 25 mg PO DAILY Do you need a note to return to daycare/school/sports/work: No HPI HPI Obstructive sleep apnea: Details: THIS 44 YEARS OLD GENTLEMAN WITH SUPER MORBID OBESITY AND OBSTRUCTIVE SLEEP APNEA IS HERE FOR FOLLOW-UP AFTER 6 MONTHS. HE HAS VERY REGULAR USER OF CPAP EVERY NIGHT AND SLEEPS WELL. HE HAS SOME SHOULDER AND BACK PROBLEM AND SLEEP GETS DISTURBED DUE TO THAT ISSUE. OTHER HEBERT THE CPAP DOES NOT BOTHER HIM. HAS NOT BEEN DOING ANY EXERCISE SO HAS ACTUALLY PUT ON SOME WEIGHT. [facility] Medical History Hypercholesteremia Anxiety Cervical radiculopathy Right shoulder pain Neck pain Lymphadenopathy, axillary Lymphedema Tick bite RBBB Sinus tachycardia Left axis deviation Obesity, morbid, BMI 40.0-49.9 Hyperlipidemia LDL goal <100 Depression Plantar fasciitis, left Chronic back pain Left axillary pain Enlarged lymph node Constipation Essential tremor Follow-up exam, 3-6 months since previous exam Wellness examination Encounter for screening colonoscopy Vasectomy evaluation Erectile dysfunction Gout Major depressive disorder in remission Morbid obesity Obstructive sleep apnea hypopnea, severe Low back pain Migraines Surgical History No pertinent past surgical history Family History Mother No problems noted. Father Mental health disorder Sister No problems noted. Other Substance use disorder Social History Household Members: Significant Other and Friend(s) Housing: Apartment Alcohol intake: current Alcohol intake frequency: a few times a month Alcohol type: wine Patient Tobacco Use Status: Never used Tobacco e-Cigarette/Vaping Use: Never Used Second Hand Smoke Exposure: No service: No Current occupational status: unemployed Cognitive needs: No Hearing needs: No Vision needs: Yes Review of Systems Const All systems reviewed & are unremarkable except as noted in HPI and below Eyes Reports no additional complaints ENT Reports no additional complaints Card Denies chest pain, Denies syncope, Denies irregular heart rhythm, Denies leg edema and Denies dyspnea Resp Denies cough, Denies dyspnea and Denies wheezing GI Reports no additional complaints Reports no additional complaints Musc Reports back pain Skin/Breast Reports system reviewed and no additional complaints, except as documented Neuro Reports no additional complaints and Denies syncope Psych Reports no additional complaints and Reports depression (CONTROLLED) Endo Reports no additional complaints Wes/Lymph Reports no additional complaints Aller/Immun Denies wheezing Physical Exam Vital Signs: Last Vital Signs Pulse 89 01/24/25 15:37 BP 122/80 01/24/25 15:37 Pulse Ox 97 01/24/25 15:37 Oxygen Delivery Method Room Air 01/24/25 15:37 BMI result Body Mass Index 46.0 Const General: comfortable, no acute distress, alert and awake Orientation/consciousness: patient oriented x3 HEENT Head: Yes normal to inspection General nose exam: No nasal polyps present and No nasal discharge present Face and sinus: Yes sinuses nontender Mouth: oropharynx abnormals (OROPHARYNX IS MODERATELY CROWDED, MALLAMPATI CLASS 3) Throat: Yes posterior oropharynx normal Eyes General: appearance normal, both eyes and all related structures Neck Neck: Yes normal visual inspection, Yes no lymphadenopathy, Yes trachea midline, Yes no JVD and Yes other (NECK CIRCUMFERENCE IS 20 IN) Thyroid: Thyroid normal Chest Chest palpation & inspection: normal inspection of the chest, normal palpation of entire chest wall and no tenderness Resp Effort & Inspection: normal respiratory effort Auscultation: clear to auscultation bilaterally, no crackles and no wheezes Cardio Palpation: normal PMI Rate: regular rate Rhythm: regular rhythm Heart sounds: no gallops and no murmurs Peripheral pulses: Peripheral pulses 2+ throughout GI Palpation (GI): Soft to palpation, nontender, No hepatosplenomegaly present and no masses Auscultation: normal bowel sounds Back/Spine/Pelvis Thoracic/Lumbar Spine: thoracic and lumbar spine normal to inspection Skin General skin exam: no rashes or lesions noted Neuro General: patient oriented x3 and no focal motor deficits Cranial nerves: Yes CN's II-XII intact bilaterally Extrem General: Yes normal to inspection, Yes no clubbing, cyanosis or edema and Yes no calf tenderness Psych Appearance: grossly normal and well kempt Speech and movement: Normal speech and movement present Results Reviewed Results Reviewed: COMPLIANCE REPORT FOR THE LAST 30 NIGHTS IS REVIEWED AND HE HAS USED 30/30 NIGHTS, 100%. AVERAGE USAGE PER NIGHT. 6 HOURS 41 MINUTES THERE IS SOME AIR LEAK ISSUE MAXIMUM 90.5. RESIDUAL AHI IS ONLY 2.3 Assessment & Plan Assessment & Plan (1) Morbid obesity: Comment: BMI 46.0. HE HAS NOT BEEN ABLE TO LOSE MUCH WEIGHT. RATHER GAINED 8 LB IN THE LAST 6 MONTHS. Code(s): E66.01 - Morbid (severe) obesity due to excess calories Category: Medical Plan: DISCUSSED WITH HIM ABOUT THE WEIGHT, DIET AND NEED TO EXERCISE EXPLAINED. HE IS NOT ABLE TO JOIN A WEIGHT MANAGEMENT PROGRAM. (2) Obstructive sleep apnea hypopnea, severe: Comment: HE HAS MODERATELY SEVERE DEGREE OF OBSTRUCTIVE SLEEP APNEA. HE HAS BEEN USING CPAP REGULARLY AND DID USE FOR 100% OF THE NIGHTS. AVERAGE USAGE PER NIGHT IS BETWEEN 6-7 HOURS . Code(s): G47.33 - Obstructive sleep apnea (adult) (pediatric) Category: Medical Plan: COMMENDED FOR GOOD COMPLIANCE AND ADVISED TO KEEP ON USING THE CPAP EVERY NIGHT Coding Level of Care Code Est Pt Level 3 (64695) Diagnoses Morbid obesity E66.01 Obstructive sleep apnea hypopnea, severe G47.33
--- OUTSIDE RECORDS SUMMARY | 2025-01-24 16:51 | XMS_ITS | Clinical Summary ---
Author Organization [facility] Address [address] [place] [address] Phone Care Team Providers Care Gem Cutter Name Role Phone Leslie Galindo Christi CARREON Unavailable [phone] Angelito Lee MD Unavailable [phone] Unknown, Unknown Primary Care Provider Pamela villanueva [...] disor kim 08/04/2017 Overview (11/24/2020): therapy at [facility] in past Assessment & Plan (03/23/2021 [...] PM EDT): He will continue therapy at [facility]. Exercise, practice self care. continue wellbutrin. [...] FOBT 11/30/2023 SIGMOIDOSCOPY 11/30/2023 VIRTUAL COLONOSCOPY 11/30/2023 INFLUENZA VACCINE (#1) 2024 9, 02/23/2018, 01/25/2017, Additional history exists COVID-19 VACCINE ( season) 2025 08/11/2020 Adult Td,Tdap Booster 08/05/2027 08/04/2017 HEPATITIS C SCREENING Completed 11/21/2018, 018 HIV ONE-TIME SCREENING (18-65 YEARS) Completed 11/24/2020 SMOKING STATUS SCREENING (Once After 26 Yrs) Completed 03/23/2021 HIB VACCINES Aged Out No longer eligi ble based on patient's age to complete this topic MENINGOCOCCAL VACCINES (ACWY) Aged Out No longer eligible based on patient's age to complete this topic MENINGOCOCCAL VACCINES (B) Aged Out N o longer eligible based on patient's age to complete this topic PNEUMOCOCCAL VACCINES (0-49 years) Aged Out No longer eligible based on [...] (11/21/2018 10:09 AM EDT) HCV Negative Negative [facility] Comment: This is a screening test and should be confirmed with molecular testing Blood 11/21/2018 10:0 9 AM EDT 11/21/2018 10:11 AM EDT Leslie Galindo [facility] BLOOD ORDERABLES Final Result [facility] [address] [place] [address] * (ABNORMAL) Lipid panel (11/21/2018 10:09 AM EDT) HDL 35 mg/dL [facility] Comment: Interpretation <40 mg/dL: Low HDL cholesterol (major risk factor for CHD) Greater than or equal to 60 mg/dL: High HDL cholesterol ( negative risk factor for CHD) HDL - cholesterol is affected by a number of factors, e.g. smoking, excerise, hormones, sex and age. CHOLESTEROL 154 0 - 240 mg/dL [facility] TRIGLYCERIDES 181(H) 30 - 160 mg/dL [facility] LDL 83 50 - 129 mg/dL [facility] Comment: LDL levels in terms of risk for coronary heart disease: <100 mg/dL: Optimal 100-129 mg/dL: Near or above optimal 130-159 mg/dL: Borderline high 160-189 mg/dL: High >190 mg/dL: Very High CARDIAC RISK RATIO 4.4 3.4 - 5.0 C [facility] Blood 11/21/2018 10:0 9 AM EDT 11/21/2018 10:11 AM EDT us Leslie Galindo [facility] BLOOD ORDERABLES Final Result [facility] [address] [place] [address] from Last 3 Months or Most Recently Relevant to Health Maintenance Insurance ACO [place] [address] [place] [address] ACO ACO ACO ACO [facility] ACO Care Teams Gem Cutter Relationship Specialty Start Date End Date Unknown, Unknown, PCP - General 08/04/23 Leslie Galindo CNP [address] [facility], [address] [place] [id number] [email or web address] Historical LMR Provider 11/14/20 Angelito Lee MD [address] [place] [phone] Insurance Assigned Provider Internal Medicine 11/14/20 Additional Source Comments The information contained in this document represents components of the legal health record. It is not the complete legal health record.[facility]
== END 2025-01-24 15:49 | disposition home or self-care (01) ==
LOC: HO.HPS 15:28
PROVIDERS: PCP Internal Medicine; Visit Provider Internal Medicine
DX: E66.01 Morbid (severe) obesity due to excess calories (principal); G47.33 Obstructive sleep apnea (adult) (pediatric)
CPT/HCPCS: 99213

== ENCOUNTER → 2025-01-24 15:27 | Outpatient (BNVA) | payer OTHER, SELFPAY | PROVIDERS: PCP Internal Medicine; Visit Provider Internal Medicine | DX: G47.33 Obstructive sleep apnea (adult) (pediatric) (principal); E66.01 Morbid (severe) obesity due to excess calories; Z68.42 Body mass index [BMI] 45.0-49.9, adult | CPT/HCPCS: 99212 ==

== ENCOUNTER 2025-03-20 10:55 | Outpatient (AMB) | payer OTHER, SELFPAY ==
--- NOTE | 2025-03-20 11:18 | MHC.OFFVIS ---
Intake Visit Reasons: vasectomy 12 W follow up Intake Note: Patient is present for Vasectomy Follow Up Urology Med: Tadalafil, Testosterone, Antibiotic Allergy: Azithromycin Blood Thinner:None Educational Psychology Teacher Required: No Accompanied by: Self / Same As Patient Allergies azithromycin Adverse Reaction (Intermediate, Verified 03/20/25 11:25) stomach pain HPI Comments Details: Neeraj is a pleasant male. He is a patient of Dr Quijano. He is seen for the following urologic conditions. - post vasectomy - testosterone boost No sperm seen on high-powered field evaluation in office today Minimal issues following vasectomy Discussion regarding testosterone recovery Interested in trying enclomiphene Prescription provided 12 week follow-up lab work 12/31 testosterone labs are still pending Here for vasectomy today Recommend trial of testosterone oriental orthodox Clomid prescription provided for 7 day stim test 11/12/2024--last visit 07/16/2024 started on Cialis History of Present Illness - The patient is a 43-year-old male presenting with concerns regarding erectile dysfunction and low testosterone levels. - Erectile dysfunction was initially evaluated on 07/16/24, and the patient was started on daily Cialis. - The patient reports some improvement with Cialis but continues to experience dysfunction issues, estimating a 50% or less improvement. - Blood work on 11/05/24 showed low normal total testosterone at 293 and free testosterone below normal at 31. - PSA levels were normal at 0.28. - The patient is considering a vasectomy and is aware of the procedure options available. Results - Labs: Total testosterone 293 (low normal), free testosterone 31 (below normal), PSA 0.28 (normal) on 11/05/24. Plan Continue daily Cialis and consider adding 20 mg Cialis for sexual activity, not exceeding twice a week with at least three days in between doses. - Initiate testosterone replacement therapy with a daily gel, with follow-up blood work in three to four months to assess efficacy. [facility] Medical History Hypercholesteremia Anxiety Cervical radiculopathy Right shoulder pain Neck pain Lymphadenopathy, axillary Lymphedema Tick bite RBBB Sinus tachycardia Left axis deviation Obesity, morbid, BMI 40.0-49.9 Hyperlipidemia LDL goal <100 Depression Plantar fasciitis, left Chronic back pain Left axillary pain Enlarged lymph node Constipation Essential tremor Follow-up exam, 3-6 months since previous exam Wellness examination Encounter for screening colonoscopy Vasectomy evaluation Erectile dysfunction Gout Major depressive disorder in remission Morbid obesity Obstructive sleep apnea hypopnea, severe Low back pain Migraines Surgical History No pertinent past surgical history Family History Mother No problems noted. Father Mental health disorder Sister No problems noted. Other Substance use disorder Social History Household Members: Significant Other and Friend(s) Housing: Apartment Alcohol intake: current Alcohol intake frequency: a few times a month Alcohol type: wine Patient Tobacco Use Status: Never used Tobacco e-Cigarette/Vaping Use: Never Used Second Hand Smoke Exposure: No service: No Current occupational status: unemployed Cognitive needs: No Hearing needs: No Vision needs: Yes Review of Systems Const Denies chills and Denies fever(s) Card Reports no additional complaints and Denies syncope Resp Denies cough GI Denies abdominal pain and Denies heartburn Reports as per HPI and Denies change in libido Neuro Denies syncope Psych Denies change in libido Endo Denies change in libido Physical Exam Const General: cooperative, healthy appearing, comfortable and no acute distress Orientation/consciousness: patient oriented x3 HEENT Face and sinus: Yes normal facial exam Mouth: moist mucous membranes Neck Neck: Yes normal visual inspection, Yes full ROM and Yes trachea midline Chest Chest palpation & inspection: normal inspection of the chest Resp Effort & Inspection: normal respiratory effort, able to speak in complete sentences and no respiratory distress GI Inspection: Yes normal to inspection Back/Spine/Pelvis Cervical Spine: normal cervical lordosis Thoracic/Lumbar Spine: thoracic and lumbar spine normal to inspection Skin General skin exam: no rashes or lesions noted Neuro General: patient oriented x3, gait normal, tone normal and moves all extremities Extrem General: Yes normal to inspection and Yes capillary refill normal Assessment & Plan Assessment & Plan (1) Erectile dysfunction: Code(s): N52.9 - Male erectile dysfunction, unspecified Category: Medical (2) Anxiety about health: Code(s): R45.89 - Other symptoms and signs involving emotional state Category: Medical (3) Low testosterone: Code(s): R79.89 - Other specified abnormal findings of blood chemistry Category: Medical Plan Trial enclomiphene Orders: Orders Testosterone, Total 10 Weeks R79.89 - Other specified abnormal findings of blood chemistry Lutenizing Hormone 10 Weeks R79.89 - Other specified abnormal findings of blood chemistry Estrad Free (Tot Ultra + Free) 10 Weeks R79.89 - Other specified abnormal findings of blood chemistry Medications: New [enclomiphene] [facility] - Fax Patient Cell Number - [phone] 1 tab PO DAILY 90 tabs 1RF [facility] [place] - Fax 90 days E29.1 - Testicular hypofunction, R79.89 - Other specified abnormal findings of blood chemistry Patient Instructions: This note is constructed using voice recognition software. While every effort has been made to ensure accuracy supervisor weaving errors may have been included. Imaging studies, laboratory and physical exam results were discussed and reviewed in detail. No major barriers to patient understanding were identified. An opportunity to ask questions regarding the treatment plan was provided. All questions were answered. The patient expressed understanding and agreement with the above treatment plan. The patient is aware they should contact our office by phone for worsening of their current condition or the appearance of new urologic symptoms. Compliance is encouraged with any medications and followup testing that is ordered. It is a privilege to participate in the urologic care of your patient. If you have any questions or concerns regarding treatment for the above conditions, or other urologic issues, please do not hesitate to contact me. The office telephone contact is [phone]. Sincerely, Dr Larry Morales MD, [facility] - Urology Compassionate Specialist Care for the Genitourinary System Coding Level of Care Code Est Pt Level 4 (73062) Diagnoses Erectile dysfunction N52.9 Anxiety about health R45.89 Low testosterone R79.89
== END 2025-03-20 11:46 | disposition home or self-care (01) ==
LOC: HO.HUSH 10:56
PROVIDERS: PCP Physician Assistant Medical; Visit Provider Urology
DX: N52.9 Male erectile dysfunction, unspecified (principal); R45.89 Other symptoms and signs involving emotional state; R79.89 Other specified abnormal findings of blood chemistry
CPT/HCPCS: 99024

== ENCOUNTER → 2025-03-20 10:55 | Outpatient (BNVA) | payer OTHER, SELFPAY | PROVIDERS: PCP Physician Assistant Medical; Visit Provider Urology | DX: N52.9 Male erectile dysfunction, unspecified (principal); R79.89 Other specified abnormal findings of blood chemistry; Z98.890 Other specified postprocedural states | CPT/HCPCS: 99212 ==

== ENCOUNTER 2025-04-03 12:35 | Outpatient (AMB) | payer OTHER, SELFPAY ==
[2025-04-03 12:44] VITALS: BP 127/74; PULSE 80; BMI 46.1
--- NOTE | 2025-04-03 12:44 | MHC.OFFVIS ---
Vital Signs 04/03/25 12:44 Height 6 ft 2 in Weight 359 lb 5.655 oz BMI 46.1 BP 127/74 Blood Pressure Location Lt brachial Position Sitting Pulse 80 Intake Visit Reasons: Thayer Screening Intake Note: New patient in office today for colonoscopy screening. CC: Patient reports occasional constipation and diarrhea. He states that he has IBS and reports more diarrhea lately. He also c/o abd pain, nausea, and GERD. Button Spindler Required: No Accompanied by: Self / Same As Patient Allergies cat dander (cats) Allergy (Unknown, Verified 04/03/25 12:49) Unknown Milk Containing Products (Dairy) Allergy (Unknown, Verified 04/03/25 12:49) Unknown peanut Allergy (Unknown, Verified 04/03/25 12:49) Unknown sabine Allergy (Unknown, Verified 04/03/25 12:49) Unknown azithromycin Adverse Reaction (Intermediate, Verified 04/03/25 12:48) stomach pain HPI HPI Thayer Screening: Details: 44 year old? male with past medical history of hypercholesterolemia, anxiety, lymphedema, RBBB, depression, back pain, migraine headaches, gout, ADD, CARL is here today for pre colonoscopy screening.? Patient was sent to us by his PCP.? This is his first colonoscopy screening.? Patient denies any gastrointestinal symptoms in the past or at present. However patient does have med depending on what he eats he might have loose stools afterwards. Usually happens with fast food or lactose. Denies any family history of CRC.? Denies history of difficulty with sedation or anesthesia in the past.? History of sleep apnea. Denies any history of cardiac, renal, pulmonary, or hepatic disease.?? No history of infectious? diseases like hepatitis A, B, C, HIV or tuberculosis.? Patient is not on any anticoagulation [facility] Medical History Hypercholesteremia Anxiety Cervical radiculopathy Right shoulder pain Neck pain Lymphadenopathy, axillary Lymphedema Tick bite RBBB Sinus tachycardia Left axis deviation Obesity, morbid, BMI 40.0-49.9 Hyperlipidemia LDL goal <100 Depression Plantar fasciitis, left Chronic back pain Left axillary pain Enlarged lymph node Constipation Essential tremor Follow-up exam, 3-6 months since previous exam Wellness examination Encounter for screening colonoscopy Vasectomy evaluation Erectile dysfunction Gout Major depressive disorder in remission Morbid obesity Obstructive sleep apnea hypopnea, severe Low back pain Migraines Surgical History No pertinent past surgical history Family History (Reviewed 03/20/25 @ 11: by DANA Kimble) Mother No problems noted. Father Mental health disorder Sister No problems noted. Other Substance use disorder Social History (Reviewed 03/20/25 @ 11: by DANA Kimble) Household Members: Significant Other and Friend(s) Housing: Apartment Alcohol intake: current Alcohol intake frequency: a few times a month Alcohol type: wine Patient Tobacco Use Status: Never used Tobacco e-Cigarette/Vaping Use: Never Used Second Hand Smoke Exposure: No service: No Current occupational status: unemployed Cognitive needs: No Hearing needs: No Vision needs: Yes Review of Systems Const Denies weight gain and Denies weight loss ENT Reports no additional complaints, Denies dysphagia and Denies odynophagia Card Reports no additional complaints Resp Reports no additional complaints GI Denies abdominal pain, Denies belching, Denies melena, Denies bloating, Denies change in bowel habits, Reports constipation (occasional), Denies dysphagia, Denies excessive flatus, Denies dyspepsia, Denies heartburn, Denies diarrhea, Denies loose stools, Denies nausea, Denies odynophagia and Denies vomiting Reports no additional complaints Musc Reports no additional complaints Neuro Reports no additional complaints Psych Reports no additional complaints Endo Reports no additional complaints Physical Exam Const General: healthy appearing, no acute distress and well developed Nutritional Appearance: well nourished and obese Orientation/consciousness: patient oriented x3 Resp Effort & Inspection: normal respiratory effort, able to speak in complete sentences, no tracheal deviation and symmetric chest movement Auscultation: clear to auscultation bilaterally Cardio Rate: regular rate GI Inspection: Yes normal to inspection, No distended and Yes obesity Palpation (GI): Soft to palpation, not firm, nontender and No hepatosplenomegaly present Auscultation: normal bowel sounds General: Yes no CVA tenderness Back/Spine/Pelvis Back: no CVA tenderness Skin General skin exam: elasticity normal, turgor normal and dry skin Neuro General: patient oriented x3 Assessment & Plan Assessment & Plan (1) Encounter for screening colonoscopy: Code(s): Z12.11 - Encounter for screening for malignant neoplasm of colon Category: Medical Plan Patient denies any GI, cardiac or respiratory symptoms.? Denies any issues with anesthesia in the past.? History of sleep apnea.? Uses CPAP at nighttime. No history infectious diseases in the past or present.? Not on any anticoagulation therapy.? No family history of colon cancer.? Patient denies melena, hematochezia, unintentional weight loss or ribbon like stools.? Occasional loose stools depending on what he eats. Occasional constipation. Patient will be given extra Dulcolax to take before the procedure. Discussed at length the pre-procedure,? prep, diet & medications as well as what to expect prior, during and after the procedure.?? Stressed the importance of good bowel prep.? Recommended the use of Vaseline or Calmoseptine OTC & baby wipes with bowel movements to promote comfort.? ?Patient verbalizes understanding and agrees to plan of care.? He was given the opportunity to ask questions and all questions answered.? We will see him after the procedure.? Orders: Referrals GI Procedure Notification Z12.11 - Encounter for screening for malignant neoplasm of colon Medications: New bisacodyl (Dulcolax (bisacodyl)) Start taking 2 tablet every night 7 days before the procedure and 1 day before procedure take 4 tablets at noon time followed by MiraLax prep 10 mg (2 x 5 mg) PO BEDTIME 16 tabs 0RF Z12.11 - Encounter for screening for malignant neoplasm of colon polyethylene glycol 3350 (Miralax) As directed by gastroenterology department at [facility] 238 grams PO ONCE 238 grams 0RF Z12.11 - Encounter for screening for malignant neoplasm of colon Coding Level of Care Code New Pt Level 3 (43304) Diagnoses Encounter for screening colonoscopy Z12.11 Time Spent (min) 40 Comment 30 minutes spent with patient and additional 10 minutes spent reviewing his records
== END 2025-04-03 13:38 | disposition home or self-care (01) ==
LOC: HO.HGI 12:36
PROVIDERS: PCP Physician Assistant Medical; Visit Provider Nurse Practitioner Family
DX: Z01.818 Encounter for other preprocedural examination (principal); Z12.11 Encounter for screening for malignant neoplasm of colon
CPT/HCPCS: 99203

== ENCOUNTER → 2025-04-03 12:35 | Outpatient (BNVA) | payer OTHER, SELFPAY | PROVIDERS: PCP Physician Assistant Medical; Visit Provider Nurse Practitioner Family | DX: Z01.818 Encounter for other preprocedural examination (principal); Z12.11 Encounter for screening for malignant neoplasm of colon; K58.2 Mixed irritable bowel syndrome; G47.33 Obstructive sleep apnea (adult) (pediatric); Z99.89 Dependence on other enabling machines and devices | CPT/HCPCS: 99202 ==